=== PATIENT | female | born 1985 | race Caucasian/White ===

== ENCOUNTER 2024-07-12 15:15 | Outpatient (CLI) | payer MEDICAID, SELFPAY ==
[2024-07-12 17:22] LABS: HCG,Quantitative 162 mIU/ml (0-5.42)
[2024-07-13 08:21] LABS: Progesterone 20.3 ng/mL (.)
== END 2024-07-12 23:59 | disposition home or self-care (01) ==
PROVIDERS: Visit Provider Obstetrics & Gynecology
DX: Z32.01 Encounter for pregnancy test, result positive (principal)
CPT/HCPCS: 36415; 84144; 84702

== ENCOUNTER 2024-07-14 16:14 | Outpatient (CLI) | payer MEDICAID, SELFPAY ==
[2024-07-14 17:39] LABS: HCG,Quantitative 499 mIU/ml (0-5.42)
== END 2024-07-14 23:59 | disposition home or self-care (01) ==
LOC: LAB 16:14
PROVIDERS: Visit Provider Obstetrics & Gynecology
DX: Z32.01 Encounter for pregnancy test, result positive (principal)
CPT/HCPCS: 36415; 84702

== ENCOUNTER 2024-08-08 12:19 | Outpatient (CLI) | payer MEDICAID, SELFPAY ==
--- OUTSIDE RECORDS SUMMARY | 2024-08-08 12:21 | XMS_ITS | Clinical Summary ---
Author Organization Healthcare Address [address] [place] [address] Care Team Providers Care Heel Reducer Name Role Phone Pcp, No Primary Care Provider Unavailabl e Allergies Active Allergy Reactions Criticality Noted Date Comments Cephalexin Rash Low 11/05/2022 Ciprofloxacin Hives Medium 01/14/2017 Ketorolac Unknown - Patient states they do not know rxn details Low 01/14/2017 Makes my seizures worse Latex Hives Medium 03/04/2017 Shellfish-Derived Products Anaphylaxis High 02/23/2018 Medications Vit-Fe Fumarate-FA ( VITAMINS PO) Take 1 tablet by mouth 1 (one) time each day. Active Blood Glucose Monitoring Suppl (OneTouch Verio Flex System) w/Device kit USE TO TEST 4 TIMES A DAY 4 Active OneTouch Verio test strip 4 (four) times a day. for testing 4 Active Lancets (OneTouch Delica Plus [id number]) [facility] TO [facility] 4 TIMES A DAY 4 Active promethazine (Phenergan) 12.5 MG tablet Take 1 tablet (12.5 mg) by mouth every 4 (four) hours. Active oxyCODONE (Roxicodone) 5 MG immediate release tablet Take 1 tablet (5 mg) by mouth every 4 (four) hours if needed for severe pain. 12 tablet 4 Active NIFEdipine XL (Adalat CC) 60 MG 24 hr tablet Take 1 tablet (60 mg) by mouth every 12 (twelve) hours. Do not crush, chew, or split. 60 tablet 1 4 Active Vit-Fe Fumarate-FA ( Vitamins) 28-0.8 MG tablet Take 1 tablet by mouth 1 (one) time each day. 30 tablet 3 4 025 Active cyclobenzaprin e (Flexeril) 5 MG tablet Take 1 tablet (5 mg) by mouth 3 (three) times a day if needed for muscle spasms. 30 tablet 4 Active naloxone (Narcan) 4 mg/0.1 mL nasal spray 1. Give 1 spray in nostril for no/slow breathing or cannot wake after opioid use 2. Call 911 3. Repeat in other nostril if symptoms continue 1 each 4 Active acetaminophen (Tylenol) 325 MG tablet Take 2 tablets (650 mg) by mouth every 6 (six) hours. Under [place] law, monthly prescriptions (30 days) can be refilled at 25 days and three-month prescriptions (90 days) at 80 days. Please contact the insurance company with questions if refills are denied. 60 tablet 4 Active ibuprofen 600 MG tabletIndicati ons:Mild to Moderate Pain Take 1 tablet (600 mg) by mouth every 6 (six) hours. 30 tablet 4 Active Blood Pressure Monitoring (Blood Pressure Cuff) misc 1 kit 2 (two) times a day. 1 each 4 Active famotidine (Pepcid) 20 MG tablet Take 1 tablet (20 mg) by mouth 2 (two) times a day. 60 tablet 11 4 025 Active Problems Problem Noted Date Diagnosed Date Chronic hypertension 02/15/2024 10/04/2023 -induced hypertension 11/20/2022 0 11/20/2022 AVNRT (AV janee re-entry tachycardia) 08/15/2019 09/16/2022 Morbid obesity 08/15/2019 09/16/2022 NSTEMI (non-ST elevated myocardial infarction) 0 07/12/2019 09/16/2022 Moderate major depression 05/26/20192022 PID (acute pelvic inflammatory disease) 02/28/19 19 09/16/2022 HTN (hypertension) 08/06/2017 09/16/2022 Migraine 08/06/2017 09/16/2022 Supraventricular tachycardia 08/06/2017 Resolved Problems Problem Noted Date Diagnosed Date Resolved Date Cholecystitis 09/21/2023 10/04/2023 Elevated troponin 07/12/2019 09/16/2022 10/12/2022 Abnormal US 02/01/2019 09/16/20222022 Immunizations Immunization Administration Dates Next Due Influenza, seasonal, injectable, preservative fr ee 10/28/2023 Tdap 12/23/2023,09/07/2022 Social History Tobacco Use Types Packs/Day Years Used Date Smoking Tobacco: Former Cigarettes 0.3 2 2 009 - 2010 Smokeless Tobacco: Never Tobacco Cessation:Counseling Given: Not Answered Alcohol Use Standard Drinks/Week Comments Never 0 (1 standard drink = 0.6 oz pur e alcohol) Humiliation, Afraid, Rape, and Kick questionnair e Answer Date Recorded Within the last year, have y ou been afraid of your partner or ex-partner? No 08/16/2023 Within the last year, have y ou been humiliated or emotionally abused in other ways by your partner or ex-partner? No Within the last year, have y ou been kicked, hit, slapped, or otherwise physically hurt by your partner or ex-partner? No 08/16/2023 Within the last year, have y ou been raped or forced to have any kind of sexual activity by your partner or ex-partner? No 08/16/2023 Social Connection and Isolation Panel Answer Date Recorded In a typical week, how many times do you talk on the phone with family, friends, or neighbors? More than three times a week 08/16/2023 How often do you get togethe r with friends or relatives? Twice a week 08/16/2023 How often do you attend chur ch or church services? More than 4 times per year 08/16/2023 Do you belong to any clubs o r organizations such as jew groups, unions, fraternal or athletic groups, or school groups? Yes 08/16/2023 How often do you attend meet ings of the clubs or organizations you belong to? More than 4 times per year 08/16/2023 Are you , , di vorced, , never , or living with a partner? 08/16/2023 AUDIT-C Answer Date Recorded Q1: How often do you have a drink containing alcohol? Never 08/16/2023 Q2: How many drinks containi ng alcohol do you have on a typical day when you are drinking? Patient does not drink Q3: How often do you have si x or more drinks on one occasion? Never 08/16/2023 Overall Financial Resource Strain (CARDIA) Answe r Date Recorded How hard is it for you to pa y for the very basics like food, housing, medical care, and heating? Somewhat hard 02/17/2024 PHQ-2 Answer Date Recorded Patient Health Questionnaire-2 Score 0 02/03/2024 [facility] [facility] - Occupational Stress Questionnaire Answer Date Recorded Do you feel stress - tense, restless, nervous, or anxious, or unable to sleep at night because your mind is troubled all the time - these days? Not at all 08/16/2023 Exercise Vital Sign Answer Date Recorde d On average, how many days pe r week do you engage in moderate to strenuous exercise (like a brisk walk)? 7 days 08/16/2023 On average, how many minutes do you engage in exercise at this level? 30 min 08/16/2023 Hunger Vital Sign Answer Date Recorded Within the past 12 months, y ou worried that your food would run out before you got the money to buy more. Never true 02/17/20 24 Within the past 12 months, t he food you bought just didn't last and you didn't have money to get more. Never true 02/17/2024 PRAPARE - Transportation Answer Date Re corded In the past 12 months, has l ack of transportation kept you from medical appointments or from getting medications? No 01/23 In the past 12 months, has l ack of transportation kept you from meetings, work, or from getting things needed for daily living? No 02/17/2024 Housing Stability Vital Sign Answer Pipe e Recorded In the last 12 months, was t here a time when you were not able to pay the mortgage or rent on time? No 08/16/2023 In the last 12 months, how many places have you lived? 1 08/16/2023 In the last 12 months, was t here a time when you did not have a steady place to sleep or slept in a skilled nursing (including now)? No 08/16/2023 [place] Depression Scale Answer Date Recorded [place] Depression Scale Total 6 12/07/2022 The thought of harming myself has occurred to me . Never 12/07/2022 Housing Stability Vital Sign Answer Pipe e Recorded In the last 12 months, was t here a time when you were not able to pay the mortgage or rent on time? No 02/24/2024 In the past 12 months, how m any times have you moved where you were living? 2 02/24/2024 At any time in the past 12 m [facility], were you homeless or living in a skilled nursing (including now)? No 02/24/2024 Utilities Answer Date Recorded In the past 12 months has th e electric, gas, oil, or water company threatened to shut off services in your home? No 02/17/2024 PHQ-2A Answer Date Recorded Depression Risk 0 08/06/2023 Education Answer Date Recorded What is the highest level of school you have completed or the highest degree you have received? High school graduate 08/16/2023 Comments No Sex and Gender Information Value Date Recorded Sex Assigned at Female 06/23/2023 4:22 PM EDT Legal Sex Female 8:27 AM EDT Gender Identity Female 06/23/2023 4:22 PM EDT Sexual Orientation Straight 06/23/2023 4: 22 PM EDT Last Filed Vital Signs Vital Sign Reading Time Taken Comments Blood Pressure 134/83 02/18/2024 7:45 AM EST Pulse 99 02/18/2024 7:45 AM EST Temperature 36.7 C (98.1 F) 02/18/2024 7:45 AM EST Respiratory Rate 16 02/17/2024 11:51 PM EST Oxygen Saturation 95% 02/18/2024 7:45 AM EST Inhaled Oxygen Concentration - - Weight 135 kg (298 lb 1 oz) 02/03/2024 9:[address] Height 180.3 cm (5' 11 ) 01/06/2024 11:32 AM EST Body Mass Index 41.57 01/06/2024 11:32 AM EST Plan of Treatment Health Maintenance Due Date Last Done Comments [facility]-/Child/Adol SDOH Screenings 1985 [facility]-Varicella Vaccines (1 of 2 - 13+ 2-dose series) 1998 HPV Vaccines (1 - 3-dose series) 2000 [facility]-Hepatitis A Vaccines (1 of 2 - Risk 2-dose series) 2004 [facility]-Hepatitis B Vaccines (1 of 3 - 19+ 3-dose series) 2004 [facility]-Pneumococcal Vaccine: Pediatrics (0 to 5 Years) and At-Risk Patients (6 to 49 Years) (1 of 2 - PCV) 2004 [facility]-HPV/Cotest 11/23/2015 [id number] Vaccine (1 - 2023- season) 2023 [facility]- SDOH Screenings 02/15/2024 [facility]-Adult SDOH Screenings 02/15/2024 08/16/2023 [facility]-Cervical Cancer Screening 01/08/2025 [facility]-Pap Smear 01/08/2025 01/08/2022 [facility]-Depression Screening 02/02/2025 024, 08/06/2023, 12/07/2022 [facility]-DTaP,Tdap,and Td Vaccines (4 - Td or Tdap) 12/22/2033 12/23/2023, 09/07/2022, 02/17/2019 [facility]-Zoster Vaccines (1 of 2) 11/23/2035 [facility]-HIV Screening Completed 07/23/2023, 09/06/2022 [facility]-Hepatitis C Screening Completed 2023, 07/23/2023, 09/06/2022 [facility]-Influenza Vaccine Completed 10/28/2023, 019 [facility]-Obesity Intervention Completed 024, 01/24/2024, 01/06/2024, Additional history exists [facility]-HIB Vaccines Aged Out No longer e ligible based on patient's age to complete this topic [facility]-IPV Vaccines Aged Out No longer e ligible based on patient's age to complete this topic [facility]-Rotavirus Vaccines Aged Out No lo nger eligible based on patient's age to complete this topic Goals Goal Patient Goal Type Associated Problems Recent Progress Patient-Stated? Author Delayed Delivery Care Plan CPM S22 PP LABOR (OBSTETRICS) No Open Scheduling, Background Procedures Procedure Name Priority Date/Time Associated Diagnosis Comments HEPATITIS C ANTIBODY W/REFLEX TO HCV QUANT PCR Routine 07/23/2023 8:37 AM EDT state, incidental HIV 1/2 ANTIBODY/ANTIGEN SCREEN WITH REFLEX TO HIV I/II DIFFERENTIATION Routine 07/23/2023 8:37 AM EDT state, incidental from Last 3 Months or Most Recently Relevant to Health Maintenance Results * HIV 1 & 2 Antibody/Antigen Screen (07/23/2023 8:37 AM EDT) HIV 1 & 2 Antibody/Antigen Screen Non Reactive Non Reactive 07/23/2023 1:19 PM EDT [facility] Comment:Screening for HIV 1 & 2 antibodies, and P24 antigen is NONREACTIVE. No confirmatory testing is required. Blood Venous blood specimen / Unknown Venipuncture / Unknown 07/23/2023 8:37 AM EDT 07/23/2023 12:39 PM EDT us Flo Rojas MD LAB BLOOD ORDERABLES Final Resu lt Performing Organization Address [facility] Co de Phone Number HEALTHCARE [facility] [address] [place] [address] * (ABNORMAL) Hepatitis C Antibody (07/23/2023 8:37 AM EDT) Hepatitis C Antibody Positive( A) Negative 07/23/2023 2:24 PM EDT [facility] Comment:This specimen is sarah ng sent for confirmation by RT-PCR. Blood Venous blood specimen / Unknown Venipuncture / Unknown 07/23/2023 8:37 AM EDT 07/23/2023 12:38 PM EDT us Flo Rojas MD LAB BLOOD ORDERABLES Final Resu lt Performing Organization Address City/[facility] Co de Phone Number [facility] [address] [place] [address] from Last 3 Months or Most Recently Relevant to Health Maintenance Additional Health Concerns Active Problems Noted Date Diagnosed Date CPM S22 PP LABOR (OBSTETRICS) 08/16/2023 Insurance [facility] MEDICAID Advance Directives * Full Code (Latest Code Status on File) Date Activated Date Inactivated Comments 02/15/2024 3:52 PM 02/18/2024 5:18 PM Question Answer Comments Patient has decision-making capacity? Yes Care Teams Heel Reducer Relationship Specialty Start Date End Date Pcp, No [address] [place] [address] PCP - General Family Medicine 09/21/23
--- NOTE | 2024-08-08 12:30 | US_ITS ---
PROCEDURE: US OB TRANSVAGINAL CLINICAL INDICATION: viability COMPARISON: No exams were available for comparison FINDINGS: Transvaginal sonographic images of the pelvis were obtained. From her last menstrual period she is 8weeks 2days. Two intrauterine gestational sacs are seen. Twin A: An intrauterine gestational sac is present with a pole with a crown-rump length of 0.94cm This correlates to a gestational age of 7weeks 0 days. BONNIE 03/27/2025 heart tones are present with an FHR of 170bpm. Yolk sac is noted. The yolk sac measures 5.9mm. Twin B: An intrauterine gestational sac is present with a pole with a crown-rump length of 0.94cm This correlates to a gestational age of 7weeks 0 days. BONNIE 03/27/2025 heart tones are present with an FHR of 165bpm. Yolk sac is noted. The yolk sac measures 5.3mm. The ovaries are not visualized today. There is no fluid in the cul-de-sac. IMPRESSION: 1. Viable twin with 2 separate gestational sacs. Too early to determine chorionicity. 2. Both embryos measures 7 weeks 0 days and dates should be revised to reflect this. Revised BONNIE will be 03/27/2025. 3. Ovaries are not visualized on today's exam. 4. No fluid in the cul-de-sac. Dictated by: Jason Erickson MD 08/08/2024 15:44 Jason Erickson MD in OV 08/08/2024 15:44
[2024-08-08 13:34] LABS: Basophils % 0.3 % (0.1-2.0); Eosinophils # 0.3 Kmm3 (0.0-0.4); Eosinophils % 2.2 % (0.1-12.0); Hematocrit 38.7 % (37.0-47.0); Hemoglobin 12.7 g/dL (12.2-16.2); Immature Granulocytes # 0.07 10^3uL; Immature Granulocytes % 0.5 %; Lymphocytes % 15.2 % (10-50); Mean Corpuscular HGB Conc 32.8 g/dL (31.8-35.4); Mean Corpuscular Hemoglobin 27.9 pg (27.0-31.2); Mean Corpuscular Volume 85.1 fl (81-99); Mean Platelet Volume 10.9 fl (7.4-10.4); Monocytes # 0.6 K/mm3 (0.1-1.0); Monocytes % 4.4 % (1.7-9.3); Neutrophils % 77.4 % (37.0-80.0); Nucleated Red Blood Cells # 0 10^3/uL; Nucleated Red Blood Cells % 0 %; Platelet Count 294 K/mm3 (142-424); Red Blood Count 4.55 M/mm3 (4.20-5.40); Red Cell Distribution Width 14.6 % (11.5-17.5); Red Cell Distribution Width-SD 44.4 fL
[2024-08-08 14:44] LABS: HIV Combo NEGATIVE (Negative)
[2024-08-08 14:53] LABS: Hepatitis C Ab Qual. W/ RFX REACTIVE (Negative)
[2024-08-09 07:21] LABS: Hepatitis B Surface Antigen Negative (Negative)
[2024-08-09 08:17] LABS: Rubella Antibodies, IgG 1.69 index (Immune >0.99)
[2024-08-09 09:58] LABS: RPR W/RFX Titers Nonreactive (Nonreactive)
== END 2024-08-08 23:59 | disposition home or self-care (01) ==
LOC: RAD 12:19
PROVIDERS: Visit Provider Obstetrics & Gynecology
DX: O30.091 Twin pregnancy, unable to determine number of placenta and number of amniotic sacs, first trimester (principal); Z3A.01 Less than 8 weeks gestation of pregnancy
CPT/HCPCS: 36415; 76817; 85025; 86592; 86762; 86803; 86850; 87340; 87389; 87522

== ENCOUNTER 2024-09-05 11:18 | Outpatient (CLI) | payer MEDICAID, SELFPAY ==
--- NOTE | 2024-09-05 11:00 | US_ITS ---
PROCEDURE: US OB <= 14 WEEKS FETUS CLINICAL INDICATION: check placenta choronicity-heartbeat of fetuses COMPARISON: No exams were available for comparison FINDINGS: Transabdominal and transvaginal sonographic images of the pelvis were obtained. From her last menstrual period she is 11weeks 0 days. An intrauterine gestational sac is present with a pole with a crown-rump length of 4.79 cm This correlates to a gestational age of 12 weeks 0 days. BONNIE 06/19/2024 heart tones are present with an FHR of 179bpm. An intrauterine gestational sac is present with a pole with a crown-rump length of 5.11cm This correlates to a gestational age of 12 weeks 0 days. BONNIE 06/19/2024 heart tones are present with an FHR of 170bpm. The ovaries were not visualized. There is no fluid in the cul-de-sac. IMPRESSION: 1. Viable twin . The placenta appears to be forming anteriorly. 2. There is a positive twin peak sign indicating dichorionic diamniotic twins. 3. Both twins measure 12 weeks 0 days and the BONNIE should be revised. The revised BONNIE will be 06/19/2024 4. No fluid in the cul-de-sac. Dictated by: Jason Erickson MD 09/05/2024 16:37 Jason Erickson MD in OV 09/05/2024 16:37
--- OUTSIDE RECORDS SUMMARY | 2024-09-05 11:20 | XMS_ITS | Clinical Summary ---
Author Organization Healthcare Address [address] [place] [address] Care Team Providers Care Twine Winder Name Role Phone Pcp, No Primary Care [...] testing 4 Active Lancets (OneTouch Delica Plus [id number]) [facility] USE TO [facility] 4 TIMES A DAY [...] time each day. 30 tablet 3 4 02/18/20 25 Active cyclobenzaprin e (Flexeril) 5 MG tablet [...] by mouth every 6 (six) hours. Under [place] law, monthly prescriptions (30 days) can be [...] times a day. 1 each 4 Active Active Problems Problem Noted Date Diagnosed Date [...] week 08/16/2023 How often do you attend [facility] or oriental orthodox services? More than 4 times per year 08/16/2023 Do you belong to any clubs o r organizations such as restorationism groups, unions, fraternal or athletic groups, or [...] Recorded Patient Health Questionnaire-2 Score 0 02/03/2024 [facility] - Occupational Stress Questionnaire Answer Date Recorded [...] place to sleep or slept in a group home (including now)? No 08/16/2023 [place] Depression Scale Answer Date Recorded Adin Depression Scale Total 6 12/07/2022 The thought [...] any time in the past 12 m [facility], were you homeless or living in a group home (including now)? No 02/24/2024 Utilities Answer Date Recorded In the past 12 months has th e [employer], gas, oil, or water company threatened to [...] HPV Vaccines (1 - 3-dose series) 2000 [facility]- SDOH Screenings 11/23/2003 [facility]-Adult SDOH Screenings 11/23/2003 [facility]-Hepatitis A Vaccines (1 of 2 - Risk 2-dose series) 2004 [facility]-Hepatitis B Vaccines (1 of 3 - 19+ 3-dose series) 2004 [facility]-Pneumococcal Vaccine: Pediatrics (0 to 5 Years) and At-Risk Patients (6 to 49 Years) (1 of 2 - PCV) 2004 [facility]-HPV/Cotest 11/23/2015 [id number] Vaccine (1 - season) 2023 [facility]-Influenza Vaccine (#1) 2024 10/28/2023, [facility]-Cervical Cancer Screening 01/08/2025 [facility]-Pap Smear 01/08/2025 01/08/2022 [facility]-Depression Screening 02/02/2025 024, 08/06/2023, 12/07/2022 [facility]-DTaP,Tdap,and Td Vaccines (4 - Td or Tdap) 12/22/2033 12/23/2023, 09/07/2022, 02/17/2019 [facility]-Zoster Vaccines (1 of 2) 11/23/2035 [facility]-HIV Screening Completed 07/23/2023, 09/06/2022 [facility]-Hepatitis C Screening Completed 2023, 07/23/2023, 09/06/2022 [facility]-Obesity Intervention Completed 024, 01/24/2024, 01/06/2024, Additional [...] ORDERABLES Final Resu lt Performing Organization Address [facility] Co de Phone Number HEALTHCARE [facility] [address] [place] [address] * (ABNORMAL) Hepatitis C Antibody (07/23/2023 8:37 AM EDT) Hepatitis C Antibody Positive( A) Negative 07/23/2023 2:24 PM EDT [facility] Comment:This specimen is sarah ng sent for confirmation by RT-PCR. Blood Venous blood specimen / Unknown Venipuncture / Unknown 07/23/2023 8:37 AM EDT 07/23/2023 12:38 PM EDT us Flo Rojas MD LAB BLOOD ORDERABLES Final Resu lt Performing Organization Address City/[facility] Co de Phone Number HEALTHCARE [facility] [address] [place] [address] from Last 3 Months or Most Recently Relevant to Health Maintenance Additional Health Concerns Active Problems Noted Date Diagnosed Date CPM S22 PP LABOR (OBSTETRICS) 08/16/2023 Insurance Advance Directives * Full Code (Latest Code Status on File) Date Activated Date Inactivated Comments 02/15/2024 3:52 PM 02/18/2024 5:18 PM Question Answer Comments Patient has decision-making capacity? Yes Care Teams Twine Winder Relationship Specialty Start Date End Date Pcp, No [address] [place] [address] PCP - General Family Medicine 09/21/23
== END 2024-09-05 23:59 | disposition home or self-care (01) ==
LOC: RAD 11:18
PROVIDERS: Visit Provider Obstetrics & Gynecology
DX: O30.041 Twin pregnancy, dichorionic/diamniotic, first trimester (principal); O09.521 Supervision of elderly multigravida, first trimester; O99.211 Obesity complicating pregnancy, first trimester; E66.9 Obesity, unspecified; O10.911 Unspecified pre-existing hypertension complicating pregnancy, first trimester; O09.291 Supervision of pregnancy with other poor reproductive or obstetric history, first trimester; Z3A.12 12 weeks gestation of pregnancy
CPT/HCPCS: 76801

== ENCOUNTER 2024-11-14 15:07 | Outpatient (CLI) | payer MEDICAID, SELFPAY ==
--- OUTSIDE RECORDS SUMMARY | 2024-10-31 12:46 | XMS_ITS | Encounter Summary ---
Author Organization [facility] Address [address] [place] [address] Care Team Providers Care Apprentice Stylist Name Role Phone Provider, No Known Primary Care Provider Unavail able Reason for Referral * Diagnostic Imaging (Routine) - Closed Specialty Diagnoses / Procedures Referred By Chasidy t Referred To Contact Radiology Diagnoses Antepartum multigravida of advanced maternal age Dichorionic diamniotic twin , antepartum Family history of congenital anomaly , unspecified gestational age Chronic hypertension during , antepartum Procedures [facility] [place] Wayne Daniels MD [address] [place] [address] Phone: tel: fax: Referral ID Status Reason Start Date Expiration Date Visits Re quested Visits Authorized Closed 09/12/2024 12/12/2025 1 1 Reason for Visit * Diagnostic Imaging (Routine) - Closed Specialty Diagnoses / Procedures Referred By Contac t Referred To Contact Radiology Diagnoses Antepartum multigravida of advanced maternal age Dichorionic diamniotic twin , antepartum Family history of congenital anomaly , unspecified gestational age Chronic hypertension during , antepartum Procedures [facility] [place] Wayne Daniels MD [address] [place] [id number] Phone: tel: fax: Referral ID Status Reason Start Date Expiration Date Visits Re quested Visits Authorized Closed 09/12/2024 12/12/2025 1 1 Encounter Details Date Type Department Care Team (Late st Contact Info) Description 10/31/2024 12:46 PM EDT - 10/31/2024 11:59 PM EDT Hospital Encounter [facility] [address] [place] [id number] Wayne Daniels [address] [place], [place] [id number] Antepartum multigravida of advanced maternal age; Dichorionic diamniotic twin , antepartum; Family history of congenital anomaly; , unspecified gestational age; Chronic hypertension during , antepartum Discharge Disposition: Home or Self Care Social History Tobacco Use Types Packs/Day Years Used Date Smoking Tobacco: Former Cigarettes Smokeless Tobacco: Never Alcohol Use Standard Drinks/Week Comments Not Currently 0 (1 standard drink = 0.6 oz pur e alcohol) Estimated Date of Delivery Comme nts Yes 03/27/2025 Date entered adelina or to episode creation Sex and Gender Information Value Date Recorded Sex Assigned at Not on file Legal Sex Female 1:35 PM EDT Gender Identity Not on file Sexual Orientation Not on file documented as of this encounter Medications at Time of Discharge albuterol sulfate HFA 108 (90 Base) MCG/ACT inhaler Inhale 1-2 puffs Every 6 (Six) Hours As Needed. aspirin 81 MG EC tablet Take 1 tablet by mouth Daily. famotidine (PEPCID) 20 MG tablet Take 1 tablet by mouth Daily Before Supper. 09/05/2024 6 hydrOXYzine (ATARAX) 25 MG tablet Take 1 tablet by mouth every night at bedtime. 08/31/2024 NIFEdipine XL (PROCARDIA XL) 30 MG 24 hr tablet Take 1 tablet by mouth Daily. 09/05/2024 Vit-Fe Fumarate-FA ( vitamin 28-0.8) 28-0.8 MG tablet tablet Take 1 tablet by mouth Daily. 02/18/2024 5 promethazine (PHENERGAN) 12.5 MG tablet Take 1 tablet by mouth Every 6 (Six) Hours As Needed. SUMAtriptan (IMITREX) 25 MG tablet Take 1 tablet by mouth 1 (One) Time. Please see attached for detailed directions 09/07/2024 documented as of this encounter Plan of Treatment Upcoming Encounters Date Type Department Care Team (Late st Contact Info) Description 11/28/2024 2:15 PM EDT Office Visit [facility] [address] [facility] [address] [place] [address] 11/28/2024 2:15 PM EDT Appointment [facility] [address] [place] [address] documented as of this encounter Procedures Procedure Name Priority Date/Time Associated Diagnosis Comments [facility] Routine 10/31/2024 1:57 PM EDT Antepartum multigravida of advanced maternal age Dichorionic diamniotic twin , antepartum Family history of congenital anomaly , unspecified gestational age Chronic hypertension during , antepartum documented in this encounter Results * [facility] (10/31/2024 1:57 PM EDT) Anatomical Region Laterality Modality Ultrasound 10/31/2024 1:14 PM EDT Narrative 10/31/2024 2:00 PM EDT PAT NAME: ROXANA NIETO MED REC#: [id number] DA: [id number] PAT GEND: F PAT TYPE: O EXAM AWILDA: [id number] REF PHYS KAYLI WHITE Comparison Studies The findings of this study are compared to the prior ultrasound study dated 09/12/24 Patient Status Outpatient Indication ======== Di/Di twin . AMA. MO BMI 46. CHTN. Previous c/s x 3. H/O preeclampsia. H/O abruption. 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 Maternal Assessment Height 175 cm Height (ft) 5 ft Height (in) 9 in Weight 141 kg Weight (lb) 311 lb BMI 45.93 kg/m Method ======= Transabdominal ultrasound examination. View: Limited by patient body habitus. Suboptimal view: limited by early gestational age ========= Twin . Dichorionic-diamniotic. Number of fetuses: 2 Dating ====== Method of dating: based on stated BONNIE GA by prior assessment 19 w + 0 d BONNIE by prior assessment: 03/27/2025 Ultrasound examination on: 10/31/2024 GA by U/S based upon: AC, BPD, Femur, HC GA by U/S 19 w + 3 d BONNIE by U/S: 03/24/2025 GA by U/S based upon (Fetus 2): AC, BPD, Femur, HC GA by U/S (Fetus 2) 19 w + 3 d BONNIE by U/S (Fetus 2): 03/24/2025 Previous dating: based on stated BONNIE, selected on 09/12/2024 Agreed BONNIE of previous datin03/27/2025 Assigned: based on stated BONNIE, selected on 10/31/2024 Assigned GA 19 w + 0 d Assigned BONNIE: 03/27/2025 length 280 d Biometry Standard BPD 43.5 mm 19w 1d 58% Hadlock OFD 59.1 mm 20w 4d 92% Nyla HC 166.6 mm 19w 2d 60% Hadlock Cerebellum tr 21.2 mm 20w 1d 88% Hill Nuchal fold 4.9 mm AC 136.9 mm 19w 1d 50% Hadlock Femur 32.4 mm 20w 1d 81% Hadlock Humerus 30.4 mm 20w 0d 84% Nyla HC / AC 1.22 79% Hadlock EFW 299 g 19w 3d 76% Hadlock EFW discordance 3.5 % EFW (lb) 0 lb EFW (oz) 11 oz EFW by: Hadlock (JVI-RT-RA-FL) Extended Tibia 26.9 mm 19w 5d 78% Nyla Fibula 28.7 mm 20w 2d 74% Nyla Foot 29.7 mm 52% Chitty Radius 24.9 mm 19w 2d 53% Nyla Ulna 27.7 mm 20w 1d 76% Nyla Cav. septi pel. tr 4.6 mm Head Of Loss Prevention 8.3 mm CM 4.8 mm 53% Nicolaides Nasal bone 6.6 mm Head / Face / Neck Cephalic index 0.74 6% Nicolaides Extremities / Bony Struc FL / BPD 0.74 96% Hadlock FL / HC 0.19 83% Hadlock FL / AC 0.24 97% Hadlock Other Structures FHR 151 bpm Biometry Standard BPD 43.2 mm 19w 0d 54% Hadlock OFD 59.2 mm 20w 4d 93% Nyla HC 165.5 mm 19w 2d 55% Hadlock Cerebellum tr 21.6 mm 20w 3d 95% Hill Nuchal fold 5.4 mm AC 139.3 mm 19w 2d 57% Hadlock Femur 33.1 mm 20w 2d 87% Hadlock Humerus 30.0 mm 19w 6d 79% Nyla HC / AC 1.19 61% Hadlock EFW 310 g 19w 4d 85% Hadlock EFW discordance 3.5 % EFW (lb) 0 lb EFW (oz) 11 oz EFW by: Hadlock (JIS-KD-UH-FL) Extended Tibia 29.3 mm 20w 5d 96% Nyla Fibula 31.3 mm 21w 1d 89% Nyla Foot 34.1 mm 97% Chitty Radius 27.7 mm 20w 2d 72% Nyla Ulna 30.8 mm 21w 4d 98% Nyla Cav. septi pel. tr 3.7 mm Head Of Loss Prevention 9.0 mm CM 4.8 mm 53% Nicolaides Head / Face / Neck Cephalic index 0.73 4% Nicolaides Extremities / Bony Struc FL / BPD 0.77 99% Hadlock FL / HC 0.20 98% Hadlock FL / AC 0.24 97% Hadlock Other Structures FHR 137 bpm General Evaluation Cardiac activity present. FHR 151 bpm. movements present. Presentation breech, maternal left. Placenta Placental site: anterior. Umbilical cord Cord vessels: 3 vessel cord. Insertion site: placental insertion: normal. Amniotic fluid Amount of AF: normal. MVP 4.5 cm. General Evaluation Cardiac activity present. FHR 137 bpm. movements present. Presentation Transverse superior RT. Placenta Placental site: anterior. Umbilical cord Cord vessels: undetermined. Insertion site: placental insertion: normal. Amniotic fluid Amount of AF: normal. MVP 4.0 cm. Anatomy Cranium: Appears normal Midline falx: Appears normal Cavum septi pellucidi: Appears normal Cerebellum: Appears normal Cisterna magna: Appears normal Head / Neck Rt lateral ventricle: Appears normal Lt lateral ventricle: Appears normal Rt choroid plexus: suboptimal Lt choroid plexus: suboptimal Vermis: Appears normal Neck: Appears normal Nuchal fold: Appears normal Lips: Appear normal Profile: Appears normal Nose: Appears normal Face Nose: Nasal bone present Palate: visualized Orbits: Appears normal Lens: Normal 4-chamber view: Appears normal RVOT view: not examined LVOT view: suboptimal Heart / Thorax Aortic arch view: not examined Ductal arch view: suboptimal SVC: suboptimal IVC: normal 3-vessel view: visualized 7-hejyro-fzcgjeq view: not examined Diaphragm: Appears normal Diaphragm: Intact Cord insertion: Appears normal Stomach: Appears normal Bladder: Appears normal Abdomen Rt kidney: normal Lt kidney: normal Cervical spine: Appears normal Thoracic spine: Appears normal Lumbar spine: suboptimal Sacral spine: suboptimal Arms: Appears normal Legs: Appears normal Rt upper arm: Appears normal Rt forearm: Appears normal Rt hand: Appears normal Rt fingers: suboptimal Lt upper arm: Appears normal Lt forearm: Appears normal Lt hand: Appears normal Lt fingers: suboptimal Rt upper leg: Appears normal Rt lower leg: Appears normal Rt foot: Appears normal Lt upper leg: Appears normal Lt lower leg: Appears normal Lt foot: suboptimal Gender: male Wants to know gender: yes Anatomy Cranium: Appears normal Midline falx: Appears normal Cavum septi pellucidi: Appears normal Cerebellum: Appears normal Cisterna magna: Appears normal Head / Neck Rt lateral ventricle: Appears normal Lt lateral ventricle: Appears normal Rt choroid plexus: Appears normal Lt choroid plexus: Appears normal Vermis: Appears normal Neck: Appears normal Nuchal fold: Appears normal Lips: not examined Profile: not examined Nose: not examined Face Palate: not examined Maxilla: not examined Mandible: not examined Orbits: not examined Lens: not examined 4-chamber view: not examined RVOT view: not examined LVOT view: not examined Heart / Thorax Aortic arch view: not examined Ductal arch view: not examined SVC: not examined IVC: not examined 3-vessel view: not examined 2-gxsnvn-jqxpfuc view: not examined Diaphragm: Appears normal Diaphragm: Intact Cord insertion: Appears normal Stomach: Appears normal Bladder: Appears normal Abdomen Rt kidney: normal Lt kidney: normal Cervical spine: Appears normal Thoracic spine: Appears normal Lumbar spine: Appears normal Sacral spine: Appears normal Arms: Appears normal Legs: Appears normal Rt upper arm: Appears normal Rt forearm: Appears normal Rt hand: Appears normal Rt fingers: suboptimal Lt upper arm: Appears normal Lt forearm: Appears normal Lt hand: Appears normal Lt fingers: suboptimal Rt upper leg: Appears normal Rt lower leg: Appears normal Rt foot: Appears normal Lt upper leg: Appears normal Lt lower leg: Appears normal Lt foot: not examined Gender: male Wants to know gender: yes Maternal Structures Uterus / Cervix Cervix: Visualized Approach: Transabdominal Cervical length 39.9 mm Ovaries / Tubes / Adnexa Rt ovary: Not visualized Lt ovary: Not visualized Consultation / Office Visit Office note to follow Impression Dichorionic-diamniotic twins in breech, maternal left-Transverse superior RT presentation Adequate growth of both twins Intertwin growth is concordant (difference 3.5 %) Amniotic fluid is concordant (MVP A 4.5 cm, B 4 cm) Normal appearing anatomic survey of each twin though limited for both twins No placenta previa Normal cervical length Recommendation Follow up in 4 weeks. Coding ======= Description: 08279-33 Detailed Ultrasound Description: 63573-18 Detailed Ultrasound additional fetus Giving Officer: RT Geoff Hines , [facility] Physician: David Taylor MD, FACOG Electronically signed by: David Taylor MD, FACOG at: 14:00 Procedure Note David Taylor MD - 10/31/2024 PAT NAME: ROXANA NIETO MED REC#: [id number] DA: 1985 PAT GEND: F PAT TYPE: O EXAM AWILAD: [id number] REF PHYS KAYLI WHITE Comparison Studies The findings of this study are compared to the prior ultrasound studydated 09/12/24 Patient Status Outpatient Indication ======== Di/Di twin . AMA. MO BMI 46. CHTN. Previous c/s x 3. H/Opreeclampsia. H/O abruption. 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 Maternal Assessment Xgcehy466 cm Height (ft)5 ft Height (in)9 in Dphfjm563 kg Weight (lb)311 lb BMI45.93 kg/m Method ======= Transabdominal ultrasound examination. View: Limited by patient bodyhabitus. Suboptimal view: limited by early gestational age ========= Twin . Dichorionic-diamniotic. Number of fetuses: 2 Dating ====== Method of dating:based on stated BONNIE GA by prior [id number] w + 0 d BONNIE by prior assessment:03/27/2025 Ultrasound examination on:10/31/2024 GA by U/S based upon:AC, BPD, Femur, HC GA by U/S19 w + 3 d BONNIE by U/S:03/24/2025 GA by U/S based upon (Fetus 2):AC, BPD, Femur, HC GA by U/S (Fetus 2)19 w + 3 d BONNIE by U/S (Fetus 2):03/24/2025 Previous dating:based on stated BONNIE, selected on 09/12/2024 Agreed BONNIE of previous datin03/27/2025 Assigned:based on stated BONNIE, selected on 10/31/2024 Assigned GA19 w + 0 d Assigned BONNIE:03/27/2025 [id number] d Biometry Standard BPD43.5 mm 19w 1d 58% Hadlock OFD59.1 mm 20w 4d 92% Nyla HC166.6 mm 19w 2d 60% Hadlock Cerebellum tr21.2 mm 20w 1d 88% Hill Nuchal fold4.9 mm AC136.9 mm 19w 1d 50% Hadlock Femur32.4 mm 20w 1d 81% Hadlock Eahajfz60.4 mm 20w 0d 84% Nyla HC / AC1.22 79% Hadlock LOH269 g 19w 3d 76% Hadlock EFW discordance3.5 % EFW (lb)0 lb EFW (oz)11 oz EFW by:Hadlock (HPV-WJ-QS-FL) Extended Tibia26.9 mm 19w 5d 78% Nyla Rxandy34.7 mm 20w 2d 74% Nyla Foot29.7 mm 52% Chitty Cxjepg98.9 mm 19w 2d 53% Nyla Ulna27.7 mm 20w 1d 76% Nyla Cav. septi pel. tr4.6 mm Vp8.3 mm CM4.8 mm 53% Nicolaides Nasal bone6.6 mm Head / Face / Neck Cephalic index0.74 6% Nicolaides Extremities / Bony Struc FL / BPD0.74 96% Hadlock FL / HC0.19 83% Hadlock FL / AC0.24 97% Hadlock Other Structures DUB507 bpm Biometry Standard BPD43.2 mm 19w 0d 54% Hadlock OFD59.2 mm 20w 4d 93% Nyla HC165.5 mm 19w 2d 55% Hadlock Cerebellum tr21.6 mm 20w 3d 95% Hill Nuchal fold5.4 mm AC139.3 mm 19w 2d 57% Hadlock Femur33.1 mm 20w 2d 87% Hadlock Rhtdeqr91.0 mm 19w 6d 79% Nyla HC / AC1.19 61% Hadlock LSN861 g 19w 4d 85% Hadlock EFW discordance3.5 % EFW (lb)0 lb EFW (oz)11 oz EFW by:Hadlock (EWZ-SD-PZ-FL) Extended Tibia29.3 mm 20w 5d 96% Nyla Ertmnj86.3 mm 21w 1d 89% Nyla Foot34.1 mm 97% Chitty Aiwyru59.7 mm 20w 2d 72% Nyla Ulna30.8 mm 21w 4d 98% Nyla Cav. septi pel. tr3.7 mm Vp9.0 mm CM4.8 mm 53% Nicolaides Head / Face / Neck Cephalic index0.73 4% Nicolaides Extremities / Bony Struc FL / BPD0.77 99% Hadlock FL / HC0.20 98% Hadlock FL / AC0.24 97% Hadlock Other Structures XBL580 bpm General Evaluation Cardiac activity present. FHR 151 bpm. movements present. Presentation breech, maternal left. Placenta Placental site: anterior. Umbilical cord Cord vessels: 3 vessel cord. Insertion site: placentalinsertion: normal. Amniotic fluid Amount of AF: normal. MVP 4.5 cm. General Evaluation Cardiac activity present. FHR 137 bpm. movements present. Presentation Transverse superior RT. Placenta Placental site: anterior. Umbilical cord Cord vessels: undetermined. Insertion site: placentalinsertion: normal. Amniotic fluid Amount of AF: normal. MVP 4.0 cm. Anatomy Cranium:Appears normal Midline falx:Appears normal Cavum septi pellucidi:Appears normal Cerebellum:Appears normal Cisterna magna:Appears normal Head / Neck Rt lateral ventricle:Appears normal Lt lateral ventricle:Appears normal Rt choroid plexus:suboptimal Lt choroid plexus:suboptimal Vermis:Appears normal Neck:Appears normal Nuchal fold:Appears normal Lips:Appear normal Profile:Appears normal Nose:Appears normal Face Nose:Nasal bone present Palate:visualized Orbits:Appears normal Lens:Normal 4-chamber view:Appears normal RVOT view:not examined LVOT view:suboptimal Heart / Thorax Aortic arch view:not examined Ductal arch view:suboptimal SVC:suboptimal IVC:normal 3-vessel view:visualized 1-jogzfr-moqdhjv view:not examined Diaphragm:Appears normal Diaphragm:Intact Cord insertion:Appears normal Stomach:Appears normal Bladder:Appears normal Abdomen Rt kidney:normal Lt kidney:normal Cervical spine:Appears normal Thoracic spine:Appears normal Lumbar spine:suboptimal Sacral spine:suboptimal Arms:Appears normal Legs:Appears normal Rt upper arm:Appears normal Rt forearm:Appears normal Rt hand:Appears normal Rt fingers:suboptimal Lt upper arm:Appears normal Lt forearm:Appears normal Lt hand:Appears normal Lt fingers:suboptimal Rt upper leg:Appears normal Rt lower leg:Appears normal Rt foot:Appears normal Lt upper leg:Appears normal Lt lower leg:Appears normal Lt foot:suboptimal Gender:male Wants to know gender:yes Anatomy Cranium:Appears normal Midline falx:Appears normal Cavum septi pellucidi:Appears normal Cerebellum:Appears normal Cisterna magna:Appears normal Head / Neck Rt lateral ventricle:Appears normal Lt lateral ventricle:Appears normal Rt choroid plexus:Appears normal Lt choroid plexus:Appears normal Vermis:Appears normal Neck:Appears normal Nuchal fold:Appears normal Lips:not examined Profile:not examined Nose:not examined Face Palate:not examined Maxilla:not examined Mandible:not examined Orbits:not examined Lens:not examined 4-chamber view:not examined RVOT view:not examined LVOT view:not examined Heart / Thorax Aortic arch view:not examined Ductal arch view:not examined SVC:not examined IVC:not examined 3-vessel view:not examined 7-pbyllc-imoswuz view:not examined Diaphragm:Appears normal Diaphragm:Intact Cord insertion:Appears normal Stomach:Appears normal Bladder:Appears normal Abdomen Rt kidney:normal Lt kidney:normal Cervical spine:Appears normal Thoracic spine:Appears normal Lumbar spine:Appears normal Sacral spine:Appears normal Arms:Appears normal Legs:Appears normal Rt upper arm:Appears normal Rt forearm:Appears normal Rt hand:Appears normal Rt fingers:suboptimal Lt upper arm:Appears normal Lt forearm:Appears normal Lt hand:Appears normal Lt fingers:suboptimal Rt upper leg:Appears normal Rt lower leg:Appears normal Rt foot:Appears normal Lt upper leg:Appears normal Lt lower leg:Appears normal Lt foot:not examined Gender:male Wants to know gender:yes Maternal Structures Uterus / Cervix Cervix:Visualized Approach:Transabdominal Cervical .9 mm Ovaries / Tubes / Adnexa Rt ovary:Not visualized Lt ovary:Not visualized Consultation / Office Visit Office note to follow Impression Dichorionic-diamniotic twins in breech, maternal left-Transverse superiorRT presentation Adequate growth of both twins Intertwin growth is concordant (difference 3.5 %) Amniotic fluid is concordant (MVP A 4.5 cm, B 4 cm) Normal appearing anatomic survey of each twin though limited forboth twins No placenta previa Normal cervical length Recommendation Follow up in 4 weeks. Coding ======= Description:72095-35 Detailed Ultrasound Description:99848-89 Detailed Ultrasound additional fetus Giving Officer: RT Geoff Hines , [facility] Physician: David Taylor MD, FACOG Electronically signed by: David Taylor MD, FACOG at: 14:00 us Wayne Daniels MD IMG US ORDERABLES Final Re sult documented in this encounter Visit Diagnoses Diagnosis Antepartum multigravida of advanced maternal age Dichorionic diamniotic twin , antepartum Family history of congenital anomaly Family history of congenital anomalies , unspecified gestational age Chronic hypertension during , antepartum documented in this encounter Care Teams Apprentice Stylist Relationship Specialty Start Date End Date Provider, [place] [address] PCP - General 08/10/24 documented as of this encounter
--- OUTSIDE RECORDS SUMMARY | 2024-10-31 13:15 | XMS_ITS | Encounter Summary ---
Author Organization [facility] Address [address] [place] [address] Care Team Providers Care Offset Press Operator Apprentice Name Role Phone Provider, No Known Primary Care Provider Unavail able Reason for Referral * Diagnostic Imaging (Routine) - Authorized Specialty Diagnoses / Procedures Referred By Chasidy t Referred To Contact Radiology Diagnoses Chronic hypertension during , antepartum Dichorionic diamniotic twin , antepartum Procedures [facility] David Taylor MD [address] [place] [address] Phone: tel: fax: [facility] [address] [place] [address] Phone: tel: Referral ID Status Reason Start Date Expiration Date V isits Requested Visits Authorized [id number] Authorized 10/31/2024 01/30/2026 4 4 Reason for Visit * Reason Comments Di/Di twins, mo, hx C/S, AMA, CHTN, prev child cronosynotos Encounter Details Date Type Department Care Team (Late st Contact Info) Description 10/31/2024 1:15 PM EDT Office Visit [facility] [address] [facility] [address] [place] [address] David Taylor MD [address] [facility] [address] [place] [id number] Chronic hypertension during , antepartum (Primary Dx); Dichorionic diamniotic twin , antepartum Social History Tobacco Use Types Packs/Day Years [...] on file documented as of this encounter Last Filed Vital Signs Vital Sign Reading Time Taken Comments Blood Pressure 143/70 10/31/2024 1:06 PM EDT Pulse - - Temperature - - Respiratory Rate - - Oxygen Saturation - - Inhaled Oxygen Concentration - - Weight 141 kg (311 lb) 10/31/2024 1:06 PM EDT Height - - Body Mass Index 48.71 09/12/2024 12:56 PM EDT documented in this encounter Progress Notes * David Taylor MD - 10/31/2024 1:22 PM EDTAssociated Problem(s): Dichorionic diamniotic twin , antepartum Patient is for anatomic survey secondary to di/di twins. Today's ultrasound shows normal growth andlimited but normal-appearing anatomy. * David Taylor MD - 10/31/2024 1:22 PM EDTAssociated Problem(s): Chronic hypertension during , antepartum Patient presents for follow-up ultrasound secondary to chronic hypertension and di/di twins. Today's blood pressure is 143/70. Patient currently on Procardia 30 mg daily. If continued elevation [id number] would recommend increasing blood pressure medication. * Brigitte Shaw RN - 10/31/2024 1:15 PM EDT Patient denies bleeding, leaking fluid or cramping NIPT insufficient DNA Patients next follow up with Dr. Cedeno is 11/14/24 * David Taylor MD - 10/31/2024 1:15 PM EDT Maternal/ Medicine Consult Note Date: 10/31/2024 Name: Roxana Fried : 1985 Referring Provider: Natalie Cedeno DO Chief Complaint Di/Di twins, mo, hx C/S, AMA, CHTN, prev child cronosynotos Subjective History of Present Illness: Roxana Fried is a 38 y.o. 19w0d who presents today for chronic hypertension and di/di twins BONNIE: Estimated Date of Delivery: 03/27/25 ROS: Otherwise Noted in HPI Current Outpatient Medications: albuterol sulfate HFA 108 (90 Base) MCG/ACT inhaler, Inhale 1-2 puffs Every 6 (Six) Hours As Needed., Disp: , Rfl: aspirin 81 MG EC tablet, Take 1 tablet by mouth Daily., Disp: , Rfl: famotidine (PEPCID) 20 MG tablet, Take 1 tablet by mouth Daily Before Supper., Disp: , Rfl: hydrOXYzine (ATARAX) 25 MG tablet, Take 1 tablet by mouth every night at bedtime., Disp: , Rfl: NIFEdipine XL (PROCARDIA XL) 30 MG 24 hr tablet, Take 1 tablet by mouth Daily., Disp: , Rfl: Vit-Fe Fumarate-FA ( vitamin 28-0.8) 28-0.8 MG tablet tablet, Take 1 tablet by mouth Daily., Disp: , Rfl: promethazine (PHENERGAN) 12.5 MG tablet, Take 1 tablet by mouth Every 6 (Six) Hours As Needed., Disp: , Rfl: SUMAtriptan (IMITREX) 25 MG tablet, Take 1 tablet by mouth 1 (One) Time. Please see attached for detailed directions, Disp: , Rfl: Objective Vital Signs BP 143/70 Wt (!) 141 kg (311 lb) LMP 06/11/2024 Estimated body mass index is 48.71 kg/m?? as calculated from the following: Height as of 09/12/24: 170.2 cm (67 ). Weight as of this encounter: 141 kg (311 lb). Ultrasound Impression: See Viewpoint Assessment and Plan Roxana Fried is a 38 y.o. 19w0d who presents today for chronic hypertension and di/di twins Diagnoses and all orders for this visit: 1. Chronic hypertension during , antepartum (Primary) Assessment & Plan: Patient presents for follow-up ultrasound secondary to chronic hypertension and di/di twins. Today's blood pressure is 143/70. Patient currently on Procardia 30 mg daily. If continued elevation [id number] would recommend increasing blood pressure medication. Orders: - [facility]; Standing 2. Dichorionic diamniotic twin , antepartum Assessment & Plan: Patient is for anatomic survey secondary to di/di twins. Today's ultrasound shows normal growth andlimited but normal-appearing anatomy. Orders: - [facility]; Standing Follow Up 4 weeks I spent 10 minutes caring for the patient on the day of service. This included: obtaining or reviewing a separately obtained medical history, reviewing patient records, performing a medically appropriate exam and/or evaluation, counseling or educating the patient/family/caregiver, ordering medications, labs, and/or procedures and documenting such in the medical record. This does not include time spent on review and interpretation of other tests such as ultrasound or the performance of other procedures such as amniocentesis or CVS. David Taylor MD, FACOG Maternal Medicine, [facility] [place] documented in this encounter Plan of Treatment Upcoming Encounters Date Type Department Care Team (Late st Contact Info) Description 11/28/2024 2:15 PM EDT Office Visit [facility] [address] [place] [phone] 11/28/2024 2:15 PM EDT Appointment [facility] [address] [place] [phone] Scheduled Orders Name Type Priority Associated Diagnoses Orde r Schedule [facility] Imaging Routine Chronic hypertension during , antepartum Dichorionic diamniotic twin , antepartum Every 4 Weeks for 4 Occurrences starting 10/31/2024 until 10/31/2025 documented as of this encounter Visit Diagnoses Diagnosis Chronic hypertension during , antepartum- Primary Dichorionic diamniotic twin , antepartum documented in this encounter Care Teams Offset Press Operator Apprentice Relationship Specialty Start Date End Date Provider, [place] [address] PCP - General 08/10/24 documented as of this encounter
--- OUTSIDE RECORDS SUMMARY | 2024-11-14 15:10 | XMS_ITS | Clinical Summary ---
Author Organization Healthcare Address [address] [place] [address] Care Team Providers Care Film Technician Name Role Phone Pcp, No Primary Care [...] testing 4 Active Lancets (OneTouch Delica Plus [id number]) [facility] TO [facility] 4 TIMES A [...] by mouth every 6 (six) hours. 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 09/16/2022 Morbid obesity 08/15/2019 09/16/2022 Moderate major depression 05/26/20192022 PID (acute pelvic inflammatory disease) 02/28/19 19 09/16/2022 HTN (hypertension) 08/06/2017 09/16/2022 Migraine 08/06/2017 09/16/2022 Supraventricular tachycardia 08/06/2017 Resolved Problems Problem Noted Date Diagnosed Date Resolved Date 10/04/2023 11/12/2024 Cholecystitis 09/21/2023 10/04/2023 Elevated troponin 07/12/2019 09/16/2022 10/12/2022 NSTEMI (non-ST elevated myoc ardial infarction) 07/12/2019 09/16/2022 11/12/2024 Abnormal US 02/01/2019 09/16/20222022 Encounters Date Type Department Care Team Description 09/05/2024 Refill Obstetrics & Gynecology [address] [place] [address] Flo Rojas MD from Last 3 Months Immunizations Immunization Administration Dates Next Due Influenza, [...] week 08/16/2023 How often do you attend [facility] or confucianist services? More than 4 times per year 08/16/2023 Do you belong to any clubs o r organizations such as muslim groups, unions, fraternal or athletic groups, or [...] Recorded Patient Health Questionnaire-2 Score 0 02/03/2024 [facility]ational Stress Questionnaire Answer Date [...] place to sleep or slept in a fci (including now)? No 08/16/2023 [place] Depression Scale Answer Date Recorded [place] Depression Scale Total 6 12/07/2022 The thought [...] any time in the past 12 m [facility] [place], were you homeless or living in a fci (including now)? No 02/24/2024 Utilities Answer Date Recorded In the past 12 months has [facility] cVidya, gas, oil, or water [employer] threatened to shut off services in your home? No 02/17/2024 PHQ-2A Answer Date Recorded Depression Risk 0 08/06/2023 Education Answer Date Recorded What is the highest level of school you have completed or the highest degree you have received? High school graduate 08/16/2023 Comments Unknown Sex and Gender Information Value Date Recorded [...] Health Maintenance Due Date Last Done Comments [facility]-Infant/Child/Adol SDOH Screenings 1985 [facility]-Varicella Vaccines (1 of 2 - 13+ 2-dose series) 1998 [facility]- SDOH Screenings 11/23/2003 [facility]-Adult SDOH Screenings 11/23/2003 [facility]-Hepatitis B Vaccines (1 of 3 - 19+ 3-dose series) 2004 [facility]-Pneumococcal Vaccine: Pediatrics (0 to 5 Years) and At-Risk Patients (6 to 49 Years) (1 of 2 - PCV) 2004 HPV Vaccines (1 - 3-dose SCDM series) 2012 [facility]-HPV/Cotest 11/23/2015 [id number] Vaccine ( - season) 2024 [facility]-Influenza Vaccine (#1) 2024 10/28/2023, [facility]-Cervical Cancer [...] on patient's age to complete this topic [facility]-Hepatitis A Vaccines Aged Out No longer eligible based on patient's age to complete [...] Reactive Non Reactive 07/23/2023 1:19 PM EDT [facility] Comment:Screening for HIV 1 & 2 antibodies, and P24 antigen is NONREACTIVE. No confirmatory testing is required. Blood Venous blood specimen / Unknown Venipuncture / Unknown 07/23/2023 8:37 AM EDT 07/23/2023 12:39 PM EDT Result Hoda Rojas MD LAB BLOOD ORDERABLES Final Resu lt Performing Organization Address City/[facility]/ZIP Co de Phone Number [facility] [address] [place] [address] * (ABNORMAL) Hepatitis C Antibody (07/23/2023 8:37 AM EDT) Hepatitis C Antibody Positive( A) Negative 07/23/2023 2:24 PM EDT [facility] Comment:This specimen is sarah ng sent for confirmation by RT-PCR. Blood Venous blood specimen / Unknown Venipuncture / Unknown 07/23/2023 8:37 AM EDT 07/23/2023 12:38 PM EDT us Flo Rojas MD LAB BLOOD ORDERABLES Final Resu lt [facility] [address] [place] [address] from Last 3 Months or Most Recently Relevant to Health Maintenance Additional Health Concerns Active Problems Noted Date Diagnosed Date CPM S22 PP [facility] (OBSTETRICS) 08/16/2023 Insurance Advance Directives * Full Code (Latest Code Status on File) Date Activated Date Inactivated Comments 02/15/2024 3:52 PM 02/18/2024 5:18 PM Question Answer Comments Patient has decision-making capacity? Yes Care Teams Film Technician Relationship Specialty Start Date End Date Pcp, No [address] [place] [address] PCP - General Family Medicine 09/21/23
--- OUTSIDE RECORDS SUMMARY | 2024-11-14 15:10 | XMS_ITS ---
Author Organization Healthcare Address [address] [place] [phone] Care Team Providers Care Raw Shellfish Preparer Name Role Phone Pcp, No Primary Care Provider Unavailabl e Community Health Worker Status:Closed (Closed) Start date:08/16/2023 Enrollment date:08/16/2023 End date:11/03/2024 Close reason:Patient graduated Related social drivers of health:Housing Stability Overview This episode type is for outpatient Community Health Workers enrolling patients in their program. Continued Care and Services Coordination
--- OUTSIDE RECORDS SUMMARY | 2024-11-14 15:10 | XMS_ITS | Clinical Summary ---
Author Organization [facility] Address [address] [place] [address] Care Team Providers Care Cab Starter Name Role Phone Provider, No Known Primary Care Provider Unavail able Allergies Active Allergy Reactions Criticality Noted Date Comments Cephalexin Rash Low 11/05/2022 Ciprofloxacin Hives Medium 01/14/2017 Ketorolac Hives,Unknown (See Comments) Low 01/14/2017 Makes my seizures worse Latex Hives Medium 03/04/2017 Shellfish-Derived Products Anaphylaxis High 02/23/2018 Medications albuterol sulfate HFA 108 (90 Base) MCG/ACT inhaler Inhale 1-2 puffs Every 6 (Six) Hours As Needed. Active famotidine (PEPCID) 20 MG tablet Take 1 tablet by mouth Daily Before Supper. 5 09/06/19 26 Active hydrOXYzine (ATARAX) 25 MG tablet Take 1 tablet by mouth every night at bedtime. 5 Active NIFEdipine XL (PROCARDIA XL) 30 MG 24 hr tablet Take 1 tablet by mouth Daily. 5 Active Vit-Fe Fumarate-FA ( vitamin 28-0.8) 28-0.8 MG tablet tablet Take 1 tablet by mouth Daily. 4 02/18/20 25 Active promethazine (PHENERGAN) 12.5 MG tablet Take 1 tablet by mouth Every 6 (Six) Hours As Needed. Active SUMAtriptan (IMITREX) 25 MG tablet Take 1 tablet by mouth 1 (One) Time. Please see attached for detailed directions 5 Active aspirin 81 MG EC tablet Take 1 tablet by mouth Daily. Active Active Problems Problem Noted Date Diagnosed Date Antepartum multigravida of advanced maternal age 0709/12/2024 Assessment & Plan (09/12/2024 2:05 PM EDT): The patient will be 39 years old at the time of delivery. She was quoted the following age-related risks at term: Risk for Down syndrome 1 in 140, risk for any chromosomal abnormality 1 in 80. Options in genetic testing and genetic screening were discussed with the patient. I noted an option of genetic testing in the 2nd trimester of transabdominal amniocentesis for the determination of chromosomal complement as well as amniotic fluid alpha-fetoprotein for the evaluation of a open neural tube defect. A procedure-related loss rate of 1 in 500 would be quoted with midtrimester amniocentesis. I also discussed the option of analysis of cell-free DNA in maternal blood. I noted this directed analysis measures the relative proportion of chromosomes with the detection rate of Down syndrome quoted as 99% with a false positive rate of less than .1%. Screening for other aneuploidies is also possible but the detection rate is lower with cell-free DNA technology. I then discussed the clinical utility of ultrasound and/or biochemical screening for the detection of aneuploidy as well as open neural tube defects. Further, I have reviewed her self-reported family history and made suggestions as appropriate based on my review. After discussion of the risks and options for genetic testing patient plans on having a cell free DNA screen performed. She plans to have this performed at her local OB office to keep all her records together. We will rescan the patient again at 18 weeks gestation to look for markers for trisomy. Patient understands that if anything abnormal is found either on her cell free DNA screening or on her 18-week ultrasound and amniocentesis can still be performed. Dichorionic diamniotic twin , antepartu m 09/12/2024 Assessment & Plan (10/31/2024 1:58 PM EDT): Patient is for anatomic survey secondary to di/di twins. Today's ultrasound shows normal growth and limited but normal-appearing anatomy. Assessment & Plan (09/12/2024 2:07 PM EDT): A dichorionic/diamniotic (DCDA) is a type of twin gestation where each twin has its own chorionic and amniotic sacs. DCDA pregnancies account for the majority (~76%) of all twin pregnancies. They account for all dizygotic pregnancies and ~20% of monozygotic pregnancies. With a dizygotic , two ova are independently fertilized by two sperm leading to two zygotes. With a monozygotic twin , a DCDA results from the separation of the zygotes at ~1-4 days post fertilization (morula) stage. Ultrasonographic features supporting a DCDA : First Trimester Presence of two gestational sacs with a thick echogenic chorion surrounding each embryo A thick inter-twin membrane Twin-peak sign Two yolk sacs may be seen (this, however, does not differentiate a DCDA from a monochorionic/diamniotic (MCDA) ) Second Trimester When there is no placental fusion, two separate placental sites may be seen A finding of two different genders for each twin is a definitive feature of a dizygotic which in turn will invariably mean a DCDA . If chorionicity cannot be determined, the recommendation is to manage as a monochorionic until proven otherwise. While the complication rate is still much higher with twins than a cornell , a DCDA carries the lowest rate of complications amongst twin pregnancies. Recognized complications: Increased risk of intrauterine growth restriction (IUGR) Placenta-related problems Increased risk of velamentous cord insertion Increased risk of marginal cord insertion Increased incidence of placenta previa spectrum The current recommendation for an uncomplicated DCDA is delivery at 38 weeks' gestation. Family history of congenital anomaly 09/12/2024 Assessment & Plan (09/12/2024 2:09 PM EDT): Patient had a previous child with craniosynostosis. The child relatively early. Patient notes that no other abnormalities were found in that child and has no family history of craniosynostosis or can general chronic disease in the family. Cranial cyst ostosis is generally nonsyndromic and has a low recurrence risk. That is most likely the case in this . There are forms of craniosynostosis that are syndromic and associated with several other diseases. The risk would be low in this patient given her history but we will be evaluating skull shape at each visit. 09/12/2024 Chronic hypertension during , antepartu m 09/12/2024 Assessment & Plan (10/31/2024 1:22 PM EDT): Patient presents for follow-up ultrasound secondary to chronic hypertension and di/di twins. Today's blood pressure is 143/70. Patient currently on Procardia 30 mg daily. If continued elevation above 140 would recommend increasing blood pressure medication. Assessment & Plan (09/12/2024 2:07 PM EDT): The frequency of chronic hypertension in is estimated at 1% to 5%. It is more common in older obese women and in women of -[place] descent. Preexisting hypertension is a recognized risk factor for preeclampsia. Superimposed preeclampsia develops in 13-40% of women with chronic hypertension, depending on diagnostic criteria, etiology (essential versus secondary), duration, and the severity of hypertension. A major reason for this wide range in incidence is that the definition of superimposed preeclampsia is used liberally in some studies. Pregnancies complicated by chronic hypertension are also at an increased risk for abruption placentae with the reported rate in women with mild chronic hypertension ranging from 0.7% to 2.7% and in those with severe hypertension may be as high as 5% to 10%. Both complications may result in significant maternal, , and morbidity and mortality. Women with chronic hypertension who develop superimposed preeclampsia have higher rates of adverse maternal and outcomes, but the independent risks associated with uncomplicated chronic hypertension are less clear. An analysis of 1,807 deliveries in women with chronic hypertension found that uncomplicated chronic hypertension was still associated with greater risk of delivery (odds ratio [OR], 2.7) and hemorrhage (OR, 2.2) compared with women without hypertension (Heber 2004). Other adverse maternal outcomes in women with chronic hypertension include accelerated hypertension with resultant target organ damage (eg, to the heart, brain, and kidneys), although in the absence of preeclampsia, this is extremely uncommon. Women with higher prepregnancy blood pressure or those with secondary hypertension are at greater risk for development of severe hypertension during . Chronic hypertension is associated with an increased risk of gestational diabetes (OR, 1.8). This may reflect similar risk factors for both conditions (obesity) as well as similar pathogenetic mechanisms (insulin resistance). The risk of placental abruption is increased threefold in women with chronic hypertension, although most of the increased risk is associated with superimposed preeclampsia (Sibai 1998). mortality is higher in pregnancies associated with chronic hypertension, most of this increased attributable risk the result of superimposed preeclampsia (Sibai 1998). The relative risk of is reported to be approximately 3.6 in women with superimposed preeclampsia compared with those with uncomplicated chronic hypertension (Rayshawn 1994). is also higher in women with uncomplicated hypertension compared with normotensive controls (relative risk 2.3) (Rayshawn 1994). In non individuals, long-term blood pressure control can lead to significant reductions in the rates of stroke and cardiovascular morbidity and mortality. Based on the available data, there is no compelling evidence that short-term antihypertensive therapy is beneficial for the mother or the fetus in the setting of low-risk hypertension except for a reduction in the rate of exacerbation of hypertension. Antihypertensive therapy, however, is necessary in women with severe hypertension to reduce the acute risk for stroke, congestive heart failure, and renal failure. In addition, control of severe hypertension may permit prolongation and thereby improve outcome. There is no available evidence, however, that control of severe hypertension reduces the rate of either superimposed preeclampsia or abruptio placentae. (Hypertension in Task Force. Obstet Gynecol 2013.) The use of atenolol during the first and second trimesters has been associated with significantly reduced growth along with decreased placental growth and weight. Combination alpha- and beta-blocking agents such as labetalol have been associated with reduced growth but to a lesser extent than that noted with pure beta-blockers such as atenolol. The available evidence suggests that the use of calcium channel-blockers, particularly nifedipine, in the first trimester has not been associated with increased rates of major defects or growth restriction. Antihypertensive therapy with either nifedipine or labetalol can be initiated if the patient develops severe hypertension before term. evaluation for patients requiring antihypertensive therapy should include an ultrasound examination at 18-20 weeks' gestation and repeated at 28 weeks' gestation then monthly thereafter until term. The development of severe hypertension, preeclampsia or abnormal growth requires immediate testing with NST or BPP. Women who develop severe hypertension and those with documented growth restriction by ultrasound examination require hospitalization and consideration of delivery. If superimposed preeclampsia is diagnosed at or beyond 37 weeks' gestation, delivery is undertaken. Patient's blood pressure today is 140/88 with a repeat of 149/84. Patient is currently taking 30 mg of nifedipine XL a day. I have instructed the patient to increase her dose to 30 mg twice daily. Frequently in twice daily dosing is necessary for Procardia XL. Patient has a blood pressure cuff and will check her pressures regularly and bring her results to her physician appointments. We will perform serial scans for growth which we would be performing anyway for dichorionic twins. We would recommend twice-weekly testing beginning at 32 weeks gestation. Estimated Date of Delivery Comme nts Yes 03/27/2025 Date entered adelina or to episode creation Encounters Date Type Department Care Team Description 10/31/2024 1:15 PM EDT Office Visit [facility] [address] [facility] [phone] David Taylor MD Chronic hypertension during , antepartum (Primary Dx); Dichorionic diamniotic twin , antepartum 10/31/2024 12:46 PM EDT - 10/31/2024 11:59 PM EDT Hospital Encounter [facility] [address] [place] [address] Wayne Daniels MD Antepartum multigravida of advanced maternal age; Dichorionic diamniotic twin , antepartum; Family history of congenital anomaly; , unspecified gestational age; Chronic hypertension during , antepartum Discharge Disposition: Home or Self Care 10/31/2024 Travel 09/12/2024 1:00 PM EDT Office Visit [facility] [address] [facility] [phone] Wayne Daniels MD Antepartum multigravida of advanced maternal age (Primary Dx); Dichorionic diamniotic twin , antepartum; Family history of congenital anomaly; , unspecified gestational age; Chronic hypertension during , antepartum 09/12/2024 12:13 PM EDT - 09/12/2024 11:59 PM EDT Hospital Encounter [facility] [address] [place] [phone] Kayli Cedeno, Dichorionic diamniotic twin in first trimester; Antepartum multigravida of advanced maternal age; History of gestational diabetes in prior , currently ; HTN in , chronic; Family history of craniosynostosis; History of ; Obesity in , antepartum Discharge Disposition: Home or Self Care 09/12/2024 Travel from Last 3 Months Social History Tobacco Use Types Packs/Day Years Used Date Smoking Tobacco: Former Cigarettes Smokeless Tobacco: Never Tobacco Cessation:Counseling Given: Not Answered Alcohol Use Standard Drinks/Week Comments Not Currently 0 (1 standard drink = 0.6 oz pur e alcohol) Estimated Date of Delivery Comme nts Yes 03/27/2025 Date entered adelina or to episode creation Sex and Gender Information Value Date Recorded Sex Assigned at Not on file Legal Sex Female 1:35 PM EDT Gender Identity Not on file Sexual Orientation Not on file Last Filed Vital Signs Vital Sign Reading Time Taken Comments Blood Pressure 143/70 10/31/2024 1:06 PM EDT Pulse - - Temperature - - Respiratory Rate - - Oxygen Saturation - - Inhaled Oxygen Concentration - - Weight 141 kg (311 lb) 10/31/2024 1:06 PM EDT Height 170.2 cm (5' 7 ) 09/12/2024 12:56 PM EDT Body Mass Index 48.71 09/12/2024 12:56 PM EDT Plan of Treatment Upcoming Encounters Date Type Department Care Team (Late st Contact Info) Description 11/28/2024 2:15 PM EDT Office Visit [facility] [address] [facility] [address] [place] [phone] 11/28/2024 2:15 PM EDT Appointment [facility] [address] [place] [phone] Health Maintenance Due Date Last Done Comments Annual Gynecologic Pelvic and Breast Exam 1985 PAP SMEAR 2006 ANNUAL PHYSICAL 08/10/2024 INFLUENZA VACCINE 09/22/2024 10/28/2023, 02/17/2019 RSV Vaccine - Adults (1 - Risk 1-dose series) 01/30/2025 TDAP/TD VACCINES (4 - Td or Tdap) 12/22/2033 12/23/2023, 09/07/2022, 02/17/2019 HEPATITIS C SCREENING Completed 07/23/2023 , 07/23/2023, 04/16/2020, Additional history exists Pneumococcal Vaccine 0-49 Aged Out No longer eligible based on patient's age to complete this topic Procedures Procedure Name Priority Date/Time Associated Diagnosis Comments [facility] Routine 10/31/2024 1:57 PM EDT Antepartum multigravida of advanced maternal age Dichorionic diamniotic twin , antepartum Family history of congenital anomaly , unspecified gestational age Chronic hypertension during , antepartum [facility] Routine 09/12/2024 2:12 PM EDT Dichorionic diamniotic twin in first trimester Antepartum multigravida of advanced maternal age History of gestational diabetes in prior , currently HTN in , chronic Family history of craniosynostosis History of Obesity in , antepartum from Last 3 Months Results * [facility] (10/31/2024 1:57 PM EDT) Only the most recent of2 resultswithin the time period is included. Anatomical Region Laterality Modality Ultrasound 10/31/2024 1:14 PM EDT Narrative 10/31/2024 2:00 PM EDT PAT NAME: ROXANA NIETO [facility] REC#: [id number] DA: [id number] PAT GEND: F PAT TYPE: O EXAM AWILDA: [id number] REF PHYS KAYLI CEDENO Comparison Studies The findings of this study [...] EFW (oz) 11 oz EFW by: Hadlock ([id number]-FL) Extended Tibia 26.9 mm 19w 5d 78% Nyla Fibula 28.7 mm 20w 2d 74% Nyla Foot 29.7 mm 52% Chitty Radius 24.9 mm 19w 2d 53% Nyla Ulna 27.7 mm 20w 1d 76% Nyla Cav. septi pel. tr 4.6 mm Aircraft Design Engineer 8.3 mm CM 4.8 mm 53% Nicolaides [...] EFW (oz) 11 oz EFW by: Hadlock ([id number]-[id number]-FL) Extended Tibia 29.3 mm 20w 5d 96% Nyla Fibula 31.3 mm 21w 1d 89% Nyla Foot 34.1 mm 97% Chitty Radius 27.7 mm 20w 2d 72% Nyla Ulna 30.8 mm 21w 4d 98% Nyla Cav. septi pel. tr 3.7 mm Aircraft Design Engineer 9.0 mm CM 4.8 mm 53% Nicolaides [...] SVC: suboptimal IVC: normal 3-vessel view: visualized 3-hfgokr-lmfscye view: not examined Diaphragm: Appears normal Diaphragm: [...] IVC: not examined 3-vessel view: not examined 8-yvulkj-hwsdeyt view: not examined Diaphragm: Appears normal Diaphragm: [...] up in 4 weeks. Coding ======= Description: 51392-79 Detailed Ultrasound Description: 74841-86 Detailed Ultrasound additional fetus Watch Case Polisher: RT Geoff Hines , [facility] Physician: David Taylor MD, FACOG Electronically signed by: David Taylor MD, FACOG at: 14:00 Procedure Note Davdi Taylor MD - 10/31/2024 PAT NAME: ROXANA NIETO [facility] REC#: [id number] DA: [id number] PAT GEND: F PAT TYPE: O EXAM AWILDA: [id number] REF PHYS KAYLI CEDENO Comparison Studies The findings of this study are compared to the prior ultrasound studydated 09/12/24 Patient Status Outpatient Indication ======== Di/Di twin . AMA. MO BMI 46. CHTN. Previous c/s x 3. H/Opreeclampsia. H/O abruption. 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 Maternal Assessment Vxwrbo433 cm Height (ft)5 ft Height (in)9 in Alyczp896 kg Weight (lb)311 lb BMI45.93 kg/m Method ======= Transabdominal ultrasound examination. View: Limited by patient bodyhabitus. Suboptimal view: limited by early gestational age ========= Twin . Dichorionic-diamniotic. Number of fetuses: 2 Dating ====== Method of dating:based on stated BONNIE GA by prior [id number] w + 0 d BONNIE by prior [...] GA19 w + 0 d Assigned BONNIE:03/27/2025 [id number] d Biometry Standard BPD43.5 mm 19w 1d 58% Hadlock OFD59.1 mm 20w 4d 92% Nyla HC166.6 mm 19w 2d 60% Hadlock Cerebellum tr21.2 mm 20w 1d 88% Hill Nuchal fold4.9 mm AC136.9 mm 19w 1d 50% Hadlock Femur32.4 mm 20w 1d 81% Hadlock Qgmucvo21.4 mm 20w 0d 84% Nyla HC / AC1.22 79% Hadlock HMC740 g 19w 3d 76% Hadlock EFW discordance3.5 % EFW (lb)0 lb EFW (oz)11 oz EFW by:Hadlock ([id number]-FL) Extended Tibia26.9 mm 19w 5d 78% Nyla Roftgs01.7 mm 20w 2d 74% Nyla Foot29.7 mm 52% Chitty Hszvam63.9 mm 19w 2d 53% Nyla Ulna27.7 mm 20w 1d 76% Nyla Cav. septi pel. tr4.6 mm Vp8.3 mm CM4.8 mm 53% Nicolaides Nasal bone6.6 mm Head / Face / Neck Cephalic index0.74 6% Nicolaides Extremities / Bony Struc FL / BPD0.74 96% Hadlock FL / HC0.19 83% Hadlock FL / AC0.24 97% Hadlock Other Structures TFQ147 bpm Biometry Standard BPD43.2 mm 19w 0d 54% Hadlock OFD59.2 mm 20w 4d 93% Nyla HC165.5 mm 19w 2d 55% Hadlock Cerebellum tr21.6 mm 20w 3d 95% Hill Nuchal fold5.4 mm AC139.3 mm 19w 2d 57% Hadlock Femur33.1 mm 20w 2d 87% Hadlock Ehwqmpw72.0 mm 19w 6d 79% Nyla HC / AC1.19 61% Hadlock YTB534 g 19w 4d 85% Hadlock EFW discordance3.5 % EFW (lb)0 lb EFW (oz)11 oz EFW by:Hadlock (KTR-CN-TR-FL) Extended Tibia29.3 mm 20w 5d 96% Nyla Wdekpp61.3 mm 21w 1d 89% Nyla Foot34.1 mm 97% Chitty Builux12.7 mm 20w 2d 72% Nyla Ulna30.8 mm 21w 4d 98% Nyla Cav. septi pel. tr3.7 mm Vp9.0 mm CM4.8 mm 53% Nicolaides Head / Face / Neck Cephalic index0.73 4% Nicolaides Extremities / Bony Struc FL / BPD0.77 99% Hadlock FL / HC0.20 98% Hadlock FL / AC0.24 97% Hadlock Other Structures ALN321 bpm General Evaluation Cardiac activity present. FHR [...] Ductal arch view:suboptimal SVC:suboptimal IVC:normal 3-vessel view:visualized 8-aczqcu-sbgvevf view:not examined Diaphragm:Appears normal Diaphragm:Intact Cord insertion:Appears [...] SVC:not examined IVC:not examined 3-vessel view:not examined 0-dcngxc-wwixgco view:not examined Diaphragm:Appears normal Diaphragm:Intact Cord insertion:Appears [...] Structures Uterus / Cervix Cervix:Visualized Approach:Transabdominal Cervical vbzanw34.9 mm Ovaries / Tubes / Adnexa Rt [...] Follow up in 4 weeks. Coding ======= Description:25736-51 Detailed Ultrasound Description:[id number] Detailed Ultrasound additional fetus Watch Case Polisher: RT Geoff Hines , [facility] Physician: David Taylor MD, FACOG Electronically signed by: David Taylor MD, FACOG at: 14:00 us [place] Daniels [place] [facility] [place] Final Re sult from Last 3 Months Insurance [employer] [place] Care Teams Cab Starter Relationship Specialty Start Date End Date Provider, [place] [address] PCP - General 08/10/24
--- OUTSIDE RECORDS SUMMARY | 2024-11-14 15:10 | XMS_ITS | Encounter Summary ---
Author Organization Healthcare Address [address] [place] [address] Care Team Providers Care Whiskey Proof Reader Name Role Phone None, None Primary Care Provider [phone] Unavailable [phone] Pcp, No Primary Care Provider Unavailabl e Margot Browne LPN Unavailable Unavailable Reason for Visit * Reason Comments Community Health Worker Spenser barnes Enrollment Encounter Details Date Type Department Care Team ([facility] st Contact Info) Description 08/16/2023 Patient Outreach Medical Office Building Obstetrics and Gynecology [address], [address] [place] [address] Jessy Martínez Community Health Worker Program Enrollment Social History Tobacco Use Types Packs/Day Years Used Date Smoking Tobacco: Former Cigarettes 0.3 2 2 009 - 2010 Smokeless Tobacco: Never Alcohol Use Standard Drinks/Week Comments Never 0 [...] 08/16/2023 How often do you attend chur or congregational services? More than 4 times per year 08/16/2023 Do you belong to any clubs o r organizations such as christian groups, unions, fraternal or athletic groups, or [...] Recorded Patient Health Questionnaire-2 Score 0 02/03/2024 [facility] - Occupational Stress [...] in a fci (including now)? No 08/16/2023 [place] Depression Scale Answer Date Recorded [place] Depression Scale Total 6 12/07/2022 The thought [...] have received? High school graduate 08/16/2023 Comments Yes Sex and Gender Information Value Date Recorded Sex Assigned at Female 06/23/2023 4:22 PM EDT Legal Sex Female 8:27 AM EDT Gender Identity Female 06/23/2023 4:22 PM EDT Sexual Orientation Straight 06/23/2023 4: 22 PM EDT documented as of this encounter Functional Status * AUDIT-C Score Answer Date of Assessment Author 0 08/16/2023 2:53 PM ANTONIOT Jj Wiley RN * Question Answer Date of Assessment Author Q1: How often do you have a drink containing alcohol? Never 08/16/2023 2:53 PM ANTONIOT Yajaira Wiley RN Q2: How many drinks containing alcohol do you have on a typical day when you are drinking? Patient does not drink 08/16/2023 2:53 PM ANTONIOT Yajaira Wiley RN Q3: How often do you have six or more drinks on one occasion? Never 08/16/2023 2:53 PM ANTONIOT Yajaira Wiley RN * Over the past 2 weeks, how often have you been bothered by any of the following problems? Question Answer Date of Assessment Author Little interest or pleasure in doing things Not at all 02/03/2024 9:59 AM Bettina Grimes Feeling down, depressed, or hopeless Not at all 02/03/2024 9:59 AM Bettina Grimes Patient Health Questionnaire -2 Score 0 02/03/2024 9:59 AM Bettina Grimes * Calculated C-SSRS Risk Score (Lifetime/Recent) Answer Date of Assessment Author No Risk Indicated 02/18/2024 9:45 AM Edwina Harrison RN * Question Answer Date of Assessment Author 1. Wish to be (Past 1 Month) No 02/18/2024 9:45 AM Edwina Cortez RN 2. Non-Specific Active Suici rachel Thoughts (Past 1 Month) No 02/18/2024 9:45 AM Ra alice Cortez RN 6. Suicidal Behavior (Lifetime) No 9:45 AM Edwina Cortez RN documented as of this encounter Plan of Treatment Not on file documented as of this encounter Goals Goal Patient Goal Type Associated Problems Recent Progress Patient-Stated? Author Delayed Delivery Care Plan CPM S22 PP LABOR (OBSTETRICS) No Open Scheduling, Background documented as of this encounter Visit Diagnoses Not on filedocumented in this encounter Additional Health Concerns Active Problems Noted Date Diagnosed Date CPM S22 PP LABOR (OBSTETRICS) 08/16/2023 Infection Onset Date Last Indicated Resolved Time COVID-19 Rule-Out 02/15/2024 02/15/2024 02/15/2024 9:20 PM EST Respiratory Rule-Out 02/15/2024 02/15/2024 024 10:28 PM EST Assessment Noted Time A fall risk assessment has been complete d for the patient 07/23/2023 8:15 AM EDT A Body Mass Index follow-up plan has been documented for the patient 08/06/2023 11:12 AM EDT documented as of this encounter Care Teams Whiskey Proof Reader Relationship Specialty Start Date End Date None, None [address] [place] [address] PCP - General NONE FOUND 09/07/22 09/16/23 Pcp, No [address] [place] [address] PCP - General Family Medicine 09/21/[address] [place] [address] Mixer And Scaler 09/24/22 11/08/23 Margot Browne LPN [employer] [place] [address] TCM Nurse 02/21/24 03/22/24 documented as of this encounter
--- OUTSIDE RECORDS SUMMARY | 2024-11-14 15:10 | XMS_ITS | Encounter Summary ---
Author Organization [facility] Address [address] [place] [address] Care Team Providers Care Inside Outside Sales Representative Name Role Phone Provider, No Known Primary Care Provider Unavail able Encounter Details Date Type Department Care Team (Latest Contact Info) Description 10/31/2024 Travel Social History Tobacco Use Types Packs/Day Years [...] on file documented as of this encounter Plan of Treatment Upcoming Encounters Date Type Department Care Team (Late st Contact Info) Description 11/28/2024 2:15 PM EDT Office Visit [facility] MATERNAL MEDICINE [address] [place] [address] 11/28/2024 2:15 PM EDT Appointment [facility] [address] [place] [address] documented as of this encounter Visit Diagnoses Not on filedocumented in this encounter Care Teams Inside Outside Sales Representative Relationship Specialty Start Date End Date Provider, No Known [facility] [place] [address] PCP - General 08/10/24 documented as of this encounter
[2024-11-14 16:29] LABS: Hematocrit 37.5 % (37.0-47.0); Hemoglobin 12.7 g/dL (12.2-16.2); Immature Granulocytes % 0.5 %; Mean Corpuscular HGB Conc 33.9 g/dL (31.8-35.4); Mean Corpuscular Hemoglobin 29.7 pg (27.0-31.2); Mean Corpuscular Volume 87.6 fl (81-99); Nucleated Red Blood Cells % 0 %; Platelet Count 275 K/mm3 (142-424); Red Blood Count 4.28 M/mm3 (4.20-5.40); Red Cell Distribution Width-SD 45.3 fL; White Blood Count 11.1 K/mm3 (4.8-10.8)
[2024-11-14 17:05] LABS: Albumin Level 4.0 g/dl (3.5-5.0); Chloride 103 mmol/L (98-107); Potassium 4.1 mmoL/L (3.5-5.1); Sodium 134 mmol/L (136-145)
[2024-11-14 17:07] LABS: Blood Urea Nitrogen 3 mg/dl (7-17)
[2024-11-14 17:08] LABS: Alanine Aminotransferase 8 U/L (12-78); Albumin/Globulin Ratio 1.5 (1.1-1.8); Alkaline Phosphatase 93 U/L (38-126); Anion Gap 14.1 mEq/L (5-15); Aspartate Amino Transferase 18 U/L (14-36); Bilirubin,Total 0.5 mg/dl (0.2-1.3); Calcium 9.5 mg/dl (8.4-10.2); Carbon Dioxide 21 mmol/L (22.0-30.0); Creatinine,Serum 0.50 mg/dl (0.52-1.04); Estimated Glomerular Filt Rate 138 ml/min (>60); GFR (African American) 167 ML/MIN (>60); Globulin 2.7 g/dL (1.3-3.2); Glucose 120 mg/dl (74-100); Total Protein,Serum 6.7 g/dl (6.3-8.2); Uric Acid 4.9 mg/dl (2.5-6.2)
== END 2024-11-14 23:59 | disposition home or self-care (01) ==
PROVIDERS: Visit Provider Obstetrics & Gynecology
DX: O10.919 Unspecified pre-existing hypertension complicating pregnancy, unspecified trimester (principal); O99.210 Obesity complicating pregnancy, unspecified trimester; O09.299 Supervision of pregnancy with other poor reproductive or obstetric history, unspecified trimester; Z86.32 Personal history of gestational diabetes; Z3A.00 Weeks of gestation of pregnancy not specified
CPT/HCPCS: 36415; 80053; 83615; 84550; 85025

== ENCOUNTER 2025-01-04 15:05 | Outpatient (CLI) | payer MEDICAID, SELFPAY ==
--- OUTSIDE RECORDS SUMMARY | 2024-11-28 13:12 | XMS_ITS | Encounter Summary ---
Author Organization [facility] Address [address] [place] [address] Care Team Providers Care Equine Internship Name Role Phone Provider, No Known Primary Care Provider Unavail able Reason for Visit * Diagnostic Imaging (Routine) - Authorized Specialty Diagnoses / Procedures Referred By Contmarlen t Referred To Contact Radiology Diagnoses Chronic hypertension during , antepartum Dichorionic diamniotic twin , antepartum Procedures US [facility] Taylor, David Pearl MD [address] [place] [address] Phone: tel: fax: [facility] [address] [place] [address] Phone: tel: Referral ID Status Reason Start Date Expiration Date V isits Requested Visits Authorized [id number] Authorized 10/31/2024 01/30/2026 4 4 Encounter Details Date Type Department Care Team (Latest Contact Info) Description 11/28/2024 2:12 PM EDT - 11/28/2024 11:59 PM EDT Hospital Encounter [facility] [address] [place] [address] Kayli Cedeno, [address] [facility] [address] [place] [address] Discharge Disposition: Home or Self Care Social [...] tablet by mouth Daily Before Supper. 09/05/2024 hydrOXYzine (ATARAX) 25 MG tablet Take 1 [...] Care Team (Late st Contact Info) Description 01/29/2025 3:15 PM EST Office Visit [facility] MATERNAL MEDICINE [address] [place] [address] 01/29/2025 3:15 PM EST Appointment [facility] [address] [place] [address] documented as of this encounter Procedures Procedure Name Priority Date/Time Associated Diagnosis Comments [facility] Routine 11/28/2024 3:05 PM EDT Chronic hypertension during , antepartum Dichorionic diamniotic twin , antepartum documented in this encounter Results * [facility] (11/28/2024 3:05 PM EDT) Anatomical Region Laterality Modality Ultrasound 11/28/2024 2:17 PM EDT Narrative 11/28/2024 3:07 PM EDT PAT NAME: ROXANA NIETO MED REC#: [id number] DA: [id number] PAT GEND: F PAT TYPE: O EXAM AWILDA: [id number] REF PHYS KAYLI CEDENO Comparison Studies The findings of this study are compared to the prior ultrasound study dated 10/31/24 Patient Status Outpatient Indication ======== Di/Di twin . AMA. MO BMI 46. CHTN. Previous c/s x 3. H/O preeclampsia. H/O abruption. 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 Maternal Assessment Height 175 cm Height (ft) 5 ft Height (in) 9 in Weight 141 kg Weight (lb) 311 lb BMI 45.93 kg/m Method ======= Transabdominal ultrasound examination. View: Limited by patient body habitus ========= Twin . Dichorionic-diamniotic. Number of fetuses: 2 Dating ====== Method of dating: based on stated BONNIE GA by prior assessment 23 w + 0 d BONNIE by prior assessment: 03/27/2025 Ultrasound examination on: 11/28/2024 GA by U/S based upon: AC, BPD, Femur, HC GA by U/S 24 w + 0 d BONNIE by U/S: 03/20/2025 GA by U/S based upon (Fetus 2): AC, BPD, Femur, HC GA by U/S (Fetus 2) 23 w + 4 d BONNIE by U/S (Fetus 2): 03/23/2025 Previous dating: based on stated BONNIE, selected on 10/31/2024 Agreed BONNIE of previous datin03/27/2025 Assigned: based on stated BONNIE, selected on 11/28/2024 Assigned GA 23 w + 0 d Assigned BONNIE: 03/27/2025 length 280 d Biometry Standard BPD 57.2 mm 23w 4d 65% Hadlock OFD 81.5 mm 26w 4d >99% Nyla HC 223.4 mm 24w 3d 85% Hadlock Cerebellum tr 28.5 mm 25w 1d >99% Hill AC 192.8 mm 24w 0d 73% Hadlock Femur 42.5 mm 23w 6d 68% Hadlock Humerus 41.6 mm 25w 1d 93% Nyla HC / AC 1.16 EFW 646 g 23w 5d 85% Hadlock EFW discordance 5.8 % EFW (lb) 1 lb EFW (oz) 7 oz EFW by: Hadlock (GUU-MP-BB-FL) Extended Cav. septi pel. tr 6.4 mm Slot Shift Supervisor 7.8 mm CM 5.5 mm 44% Nicolaides Head / Face / Neck Cephalic index 0.70 <1% Nicolaides Extremities / Bony Struc FL / BPD 0.74 FL / HC 0.19 FL / AC 0.22 Other Structures FHR 152 bpm Biometry Standard BPD 56.8 mm 23w 3d 60% Hadlock OFD 80.0 mm 26w 0d >99% Nyla HC 220.0 mm 24w 0d 76% Hadlock Cerebellum tr 26.2 mm 23w 4d 93% Hill AC 188.6 mm 23w 4d 62% Hadlock Femur 41.4 mm 23w 3d 54% Hadlock Humerus 40.9 mm 24w 6d 88% Nyla HC / AC 1.17 EFW 609 g 23w 3d 70% Hadlock EFW discordance 5.8 % EFW (lb) 1 lb EFW (oz) 5 oz EFW by: Hadlock (BTV-JY-ST-FL) Extended Cav. septi pel. tr 7.1 mm Slot Shift Supervisor 6.2 mm CM 6.5 mm 74% Nicolaides Head / Face / Neck Cephalic index 0.71 1% Nicolaides Extremities / Bony Struc FL / BPD 0.73 FL / HC 0.19 FL / AC 0.22 Other Structures FHR 158 bpm General Evaluation Cardiac activity present. FHR 152 bpm. movements present. Presentation breech, maternal left. Placenta Placental site: anterior. Umbilical cord Cord vessels: 3 vessel cord. Amniotic fluid Amount of AF: normal. MVP 4.6 cm. General Evaluation Cardiac activity present. FHR 158 bpm. movements present. Presentation breech, maternal right. Placenta Placental site: anterior. Umbilical cord Cord vessels: 3 vessel cord. Amniotic fluid Amount of AF: normal. MVP 4.7 cm. Anatomy Cranium: Normal Choroid plexus: Appears normal Cavum septi pellucidi: Normal Cerebellum: Normal Cisterna magna: Normal Head / Neck Rt lateral ventricle: Normal Lt lateral ventricle: Normal Lips: Normal Profile: Normal Nose: Normal 4-chamber view: Appears normal RVOT view: Appears normal LVOT view: Appears normal Heart / Thorax 3-vessel view: Appears normal 6-dqvpis-zxcarbx view: Appears normal Cord insertion: Normal Stomach: Appears normal Kidneys: Appears normal Bladder: Appears normal Cervical spine: Appears normal Thoracic spine: Appears normal Lumbar spine: Appears normal Sacral spine: Appears normal Gender: male Wants to know gender: yes Anatomy Cranium: Normal Cavum septi pellucidi: Normal Cerebellum: Normal Cisterna magna: Normal Head / Neck Rt lateral ventricle: Normal Lt lateral ventricle: Normal Lips: not examined Profile: not examined Nose: not examined Face Palate: not examined Orbits: Normal Lens: Normal 4-chamber view: not examined RVOT view: suboptimal LVOT view: not examined Heart / Thorax Aortic arch view: Appears normal Ductal arch view: Appears normal SVC: Appears Normal IVC: Appears Normal 3-vessel view: not examined 1-sdqedc-fpwowvp view: not examined Cord insertion: Appears normal Stomach: Appears normal Kidneys: Appears normal Bladder: Appears normal Gender: male Wants to know gender: yes Maternal Structures Uterus / Cervix Cervix: Visualized Approach: Transabdominal Cervical length 46.0 mm Doppler Arterial Umbilical A PI 0.94 9% Luly Umbilical A RI 0.61 5% Luly Umbilical A PS -32.53 cm/s Umbilical A ED -12.55 cm/s Umbilical A TAmax -21.21 cm/s Umbilical A MD -10.76 cm/s Umbilical A S / D 2.59 6% Luly Umbilical A HR 149 bpm Doppler Arterial Umbilical A PI 1.06 28% Luly Umbilical A RI 0.68 27% Luly Umbilical A PS -29.74 cm/s Umbilical A ED -9.61 cm/s Umbilical A TAmax -18.94 cm/s Umbilical A MD -9.43 cm/s Umbilical A S / D 3.09 22% Luly Umbilical A HR 156 bpm Consultation / Office Visit Office note to follow Impression ========= Size consistent with dates both twins. No anomalies were identified. Amniotic fluid volume is normal for both twins. Umbilical artery S/D ratio is normal for both twins. Patient counseled re signs and symptoms of labor. Recommendation We recommend evaluation in 4 weeks. Follow up appointment scheduled here in 4 weeks. Coding ====== Description: 56590-75 Follow Up Ultrasound Description: [id number] Follow up Ultrasound additional fetus Physician Scribe: RT Geoff Hines , [facility] Physician: Arturo Daniels MD, FACOG Electronically signed by: Arturo Daniels MD, FACOG at: 15:07 Procedure Note Wayne Daniels MD - 11/28/2024 PAT NAME: ROXANA NIETO MED REC#: [id number] DA: [id number] PAT GEND: F PAT TYPE: O EXAM AWILDA: [id number] REF PHYS KAYLI CEDENO Comparison Studies The findings of this study are compared to the prior ultrasound studydated 10/31/24 Patient Status Outpatient Indication ======== Di/Di twin . AMA. MO BMI 46. CHTN. Previous c/s x 3. H/Opreeclampsia. H/O abruption. 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 Maternal Assessment Knclff456 cm Height (ft)5 ft Height (in)9 in Ycxnud261 kg Weight (lb)311 lb BMI45.93 kg/m Method ======= Transabdominal ultrasound examination. View: Limited by patient bodyhabitus ========= Twin . Dichorionic-diamniotic. Number of fetuses: 2 Dating ====== Method of dating:based on stated BONNIE GA by prior [id number] w + 0 d BONNIE by prior assessment:03/27/2025 Ultrasound examination on:11/28/2024 GA by U/S based upon:AC, BPD, Femur, HC GA by U/S24 w + 0 d BONNIE by U/S:03/20/2025 GA by U/S based upon (Fetus 2):AC, BPD, Femur, HC GA by U/S (Fetus 2)23 w + 4 d BONNIE by U/S (Fetus 2):03/23/2025 Previous dating:based on stated BONNIE, selected on 10/31/2024 Agreed BONNIE of previous datin03/27/2025 Assigned:based on stated BONNIE, selected on 11/28/2024 Assigned GA23 w + 0 d Assigned BONNIE:03/27/2025 [id number] d Biometry Standard BPD57.2 mm 23w 4d 65% Hadlock OFD81.5 mm 26w 4d >99% Nyla HC223.4 mm 24w 3d 85% Hadlock Cerebellum tr28.5 mm 25w 1d >99% Hill AC192.8 mm 24w 0d 73% Hadlock Femur42.5 mm 23w 6d 68% Hadlock Spwuthw30.6 mm 25w 1d 93% Nyla HC / AC1.16 EWU474 g 23w 5d 85% Hadlock EFW discordance5.8 % EFW (lb)1 lb EFW (oz)7 oz EFW by:Hadlock (XAT-ER-LI-FL) Extended Cav. septi pel. tr6.4 mm Vp7.8 mm CM5.5 mm 44% Nicolaides Head / Face / Neck Cephalic index0.70 <1% Nicolaides Extremities / Bony Struc FL / BPD0.74 FL / HC0.19 FL / AC0.22 Other Structures EXI465 bpm Biometry Standard BPD56.8 mm 23w 3d 60% Hadlock OFD80.0 mm 26w 0d >99% Nyla HC220.0 mm 24w 0d 76% Hadlock Cerebellum tr26.2 mm 23w 4d 93% Hill AC188.6 mm 23w 4d 62% Hadlock Femur41.4 mm 23w 3d 54% Hadlock Jwoozpt07.9 mm 24w 6d 88% Nyla HC / AC1.17 LUK362 g 23w 3d 70% Hadlock EFW discordance5.8 % EFW (lb)1 lb EFW (oz)5 oz EFW by:Hadlock (BDJ-EE-SA-FL) Extended Cav. septi pel. tr7.1 mm Vp6.2 mm CM6.5 mm 74% Nicolaides Head / Face / Neck Cephalic index0.71 1% Nicolaides Extremities / Bony Struc FL / BPD0.73 FL / HC0.19 FL / AC0.22 Other Structures CXP959 bpm General Evaluation Cardiac activity present. FHR 152 bpm. movements present. Presentation breech, maternal left. Placenta Placental site: anterior. Umbilical cord Cord vessels: 3 vessel cord. Amniotic fluid Amount of AF: normal. MVP 4.6 cm. General Evaluation Cardiac activity present. FHR 158 bpm. movements present. Presentation breech, maternal right. Placenta Placental site: anterior. Umbilical cord Cord vessels: 3 vessel cord. Amniotic fluid Amount of AF: normal. MVP 4.7 cm. Anatomy Cranium:Normal Choroid plexus:Appears normal Cavum septi pellucidi:Normal Cerebellum:Normal Cisterna magna:Normal Head / Neck Rt lateral ventricle:Normal Lt lateral ventricle:Normal Lips:Normal Profile:Normal Nose:Normal 4-chamber view:Appears normal RVOT view:Appears normal LVOT view:Appears normal Heart / Thorax 3-vessel view:Appears normal 9-sxvmyh-lcujksp view:Appears normal Cord insertion:Normal Stomach:Appears normal Kidneys:Appears normal Bladder:Appears normal Cervical spine:Appears normal Thoracic spine:Appears normal Lumbar spine:Appears normal Sacral spine:Appears normal Gender:male Wants to know gender:yes Anatomy Cranium:Normal Cavum septi pellucidi:Normal Cerebellum:Normal Cisterna magna:Normal Head / Neck Rt lateral ventricle:Normal Lt lateral ventricle:Normal Lips:not examined Profile:not examined Nose:not examined Face Palate:not examined Orbits:Normal Lens:Normal 4-chamber view:not examined RVOT view:suboptimal LVOT view:not examined Heart / Thorax Aortic arch view:Appears normal Ductal arch view:Appears normal SVC:Appears Normal IVC:Appears Normal 3-vessel view:not examined 9-qejdlz-iuikxmy view:not examined Cord insertion:Appears normal Stomach:Appears normal Kidneys:Appears normal Bladder:Appears normal Gender:male Wants to know gender:yes Maternal Structures Uterus / Cervix Cervix:Visualized Approach:Transabdominal Cervical ryhtuj42.0 mm Doppler Arterial Umbilical A PI0.94 9% Luly Umbilical A RI0.61 5% Luly Umbilical A PS-32.53 cm/s Umbilical A ED-12.55 cm/s Umbilical A TAmax-21.21 cm/s Umbilical A MD-10.76 cm/s Umbilical A S / D2.59 6% Luly Umbilical A HR149 bpm Doppler Arterial Umbilical A PI1.06 28% Luly Umbilical A RI0.68 27% Luly Umbilical A PS-29.74 cm/s Umbilical A ED-9.61 cm/s Umbilical A TAmax-18.94 cm/s Umbilical A MD-9.43 cm/s Umbilical A S / D3.09 22% Luly Umbilical A HR156 bpm Consultation / Office Visit Office note to follow Impression ========= Size consistent with dates both twins. No anomalies were identified. Amniotic fluid volume is normal for both twins. Umbilical artery S/D ratio is normal for both twins. Patient counseled re signs and symptoms of labor. Recommendation We recommend evaluation in 4 weeks. Follow up appointment scheduled here in 4 weeks. Coding ====== Description:66046-62 Follow Up Ultrasound Description:[id number] Follow up Ultrasound additional fetus Physician Scribe: RT Geoff Hines , [facility] Physician: Arturo Daniels MD, FACOG Electronically signed by: Arturo Daniels MD, FACOG at: 15:07 us David Taylor MD IMG US ORDERABLES Final Result documented in this encounter Visit Diagnoses Not on filedocumented in this encounter Care Teams Equine Internship Relationship Specialty Start Date End Date Provider, No Known [facility] [place] [address] PCP - General 08/10/24 documented as of this encounter
--- OUTSIDE RECORDS SUMMARY | 2024-11-28 13:15 | XMS_ITS | Encounter Summary ---
Author Organization [facility] Address [address] [place] [address] Care Team Providers Care Retail Merchandiser Technician Name Role Phone Provider, No Known Primary Care Provider Unavail able Encounter Details Date Type Department Care Team (Late st Contact Info) Description 11/28/2024 2:15 PM EDT Office Visit [facility] MATERNAL MEDICINE [address] [facility] [address] [place] [phone] Wayne Daniels MD [address] [facility] [address] [place] [address] Dichorionic diamniotic twin , antepartum (Primary Dx); Morbid obesity with BMI of 45.0-49.9, adult; Chronic hypertension during , antepartum; Family history of congenital anomaly; 23 weeks gestation of ; Antepartum multigravida of advanced maternal age Social History Tobacco Use Types Packs/Day Years [...] on file documented as of this encounter Progress Notes * Wayne Daniels MD - 11/28/2024 2:45 PM EDTAssociated Problem(s): Dichorionic diamniotic twin , antepartum Patient returns today for follow-up for diamniotic dichorionic twins. is additionally complicated by advanced maternal age and chronic hypertension. Patient reports no complications since her last visit and notes good movement. Ultrasound today demonstrates diamniotic dichorionic twins. Both twins are normally grown with no abnormality seen. Amniotic fluid volume and umbilical artery Dopplers are normal. Cervical length appears normal. Patient's diamniotic dichorionic twin appears to be progressing normally. She is suffering no complications at this time. We will rescan the patient again in 4 weeks time to assess growth and wellbeing. Patient was counseled extensively regarding labor and will contact her provider immediately if she notices any labor. * Wayne Daniels MD - 11/28/2024 2:44 PM EDTAssociated Problem(s): Chronic hypertension during , antepartum Patient returns today for follow-up for complicated by diamniotic Di chorionic twins. Additionally patient has chronic hypertension for which she is taking Procardia XL 30 mg daily. Patient's blood pressure today is 134/64. Patient has no symptoms of hypertension or preeclampsia. No alterations in her medication are indicated at this point. * Wayne Daniels MD - 11/28/2024 2:15 PM EDT Images from the original note were not included. Documentation of the ultrasound findings, images, and interpretations will be available in the patient's Viewpoint report which is located in the imaging tab in chart review. Maternal/ Medicine Follow Up Note Name: Roxana Fried : 1985 Referring Provider: Natalie Cedeno DO Chief Complaint No chief complaint on file. Subjective History of Present Illness: Roxana Fried is a 39 y.o. 23w0d who presents today for twins BONNIE: Estimated Date of Delivery: 03/27/25 ROS: As noted in HPI. Objective Vital Signs LMP 06/11/2024 Estimated body mass index is 48.71 kg/m?? as calculated from the following: Height as of 09/12/24: 170.2 cm (67 ). Weight as of 10/31/24: 141 kg (311 lb). Physical Exam Ultrasound Impression: See Viewpoint Assessment and Plan Roxana Fried is a 39 y.o. 23w0d who presents today for twins Diagnoses and all orders for this visit: 1. Dichorionic diamniotic twin , antepartum (Primary) Assessment & Plan: Patient returns today for follow-up for diamniotic dichorionic twins. is additionally complicated by advanced maternal age and chronic hypertension. Patient reports no complications since her last visit and notes good movement. Ultrasound today demonstrates diamniotic dichorionic twins. Both twins are normally grown with no abnormality seen. Amniotic fluid volume and umbilical artery Dopplers are normal. Cervical length appears normal. Patient's diamniotic dichorionic twin appears to be progressing normally. She is suffering no complications at this time. We will rescan the patient again in 4 weeks time to assess growth and wellbeing. Patient was counseled extensively regarding labor and will contact her provider immediately if she notices any labor. Orders: - [facility]; Future - [facility]; Future 2. Morbid obesity with BMI of 45.0-49.9, adult - [facility]; Future - [facility]; Future 3. Chronic hypertension during , antepartum Assessment & Plan: Patient returns today for follow-up for complicated by diamniotic Di chorionic twins. Additionally patient has chronic hypertension for which she is taking Procardia XL 30 mg daily. Patient's blood pressure today is 134/64. Patient has no symptoms of hypertension or preeclampsia. No alterations in her medication are indicated at this point. Orders: - [facility]; Future - [facility]; Future 4. Family history of congenital anomaly - [facility]; Future - [facility]; Future 5. 23 weeks gestation of - [facility]; Future - [facility]; Future 6. Antepartum multigravida of advanced maternal age - [facility]; Future - [facility]; Future Follow Up Return in about 4 weeks (around 12/26/2024). I spent 15 minutes caring for the patient on the [...] other procedures such as amniocentesis or CVS. Wayne Daniels MD Maternal Medicine, [facility] 11/28/2024 documented in this encounter Plan of Treatment Upcoming Encounters Date Type Department Care Team (Late st Contact Info) Description 01/29/2025 3:15 PM EST Office Visit [facility] MATERNAL MEDICINE [address] [facility] [address] [place] [address] 01/29/2025 3:15 PM EST Appointment [facility] [address] [place] [address] documented as of this encounter Visit Diagnoses Diagnosis Dichorionic diamniotic twin , antepartum- Primary Morbid obesity with BMI of 45.0-49.9, adult Chronic hypertension during , antepartum Family history of congenital anomaly Family history of congenital anomalies 23 weeks gestation of Antepartum multigravida of advanced maternal age documented in this encounter Care Teams Retail Merchandiser Technician Relationship Specialty Start Date End Date Provider, [place] [address] PCP - General 08/10/24 documented as of this encounter
--- OUTSIDE RECORDS SUMMARY | 2025-01-01 14:31 | XMS_ITS | Encounter Summary ---
[facility] Organization [facility] Address [address] [place] [address] Care Team Providers Care Maintenance Tech Name Role Phone Provider, No Known Primary Care Provider Unavail able Reason for Visit * Diagnostic Imaging (Routine) - Authorized Specialty Diagnoses / Procedures Referred By Chasidy t Referred To Contact Radiology Diagnoses Chronic hypertension during , antepartum Dichorionic diamniotic twin , antepartum Procedures Formerly [facility] Taylor, David Pearl MD [address] [place] [address] Phone: tel: fax: [facility] [address] [place] [address] Phone: tel: Referral ID Status Reason Start Date Expiration Date V isits Requested Visits Authorized [id number] Authorized 10/31/2024 01/30/2026 4 4 Encounter Details Date Type Department Care Team (Latest Contact Info) Description 01/01/2025 2:31 PM EST - 01/01/2025 11:59 PM [facility] Hospital Encounter [facility] [address] [place] [address] Discharge Disposition: Home or Self Care Social [...] Description 01/29/2025 3:15 PM EST Office Visit [facility] MATERNAL [facility]ICINE [address] [place] [address] 01/29/2025 3:15 PM EST Appointment [facility] [address] [place] [address] documented as of this encounter Procedures Procedure Name Priority Date/Time Associated Diagnosis Comments US [facility] Routine 01/01/2025 3:27 PM EST Chronic hypertension during , antepartum Dichorionic diamniotic twin , antepartum documented in this encounter Results * Formerly [facility] (01/01/2025 3:27 PM EST) Anatomical Region Laterality Modality Ultrasound 01/01/2025 2:55 PM EST Narrative 01/02/2025 7:32 PM EST PAT NAME: ROXANA NIETO MED REC#: [id number] DA: [id number] PAT GEND: F PAT TYPE: O EXAM AWILDA: [id number] REF PHYS KAYLI WHITE Comparison Studies The [...] EFW (oz) 11 oz EFW by: Hadlock (ISY-RS-WN-FL) Extended Cav. septi pel. tr 7.1 mm Electrical Continuity Tester 6.4 mm CM 6.4 mm 42% Nicolaides [...] EFW (oz) 14 oz EFW by: Hadlock (GYB-UP-BD-FL) Extended Cav. septi pel. tr 6.4 mm Electrical Continuity Tester 6.8 mm CM 8.2 mm 87% Nicolaides [...] Heart / Thorax 3-vessel view: Appears normal 5-wgbqiw-azfczey view: Appears normal Cord insertion: Appears normal [...] doppler normal x 2 Coding ======= Description: 57467-88 Follow Up Ultrasound Description: 98043-30-98 Follow up Ultrasound additional fetus Radiology Equipment Servicer: RT Geoff Hines , [place] Physician: Radha Burnett MD, FACOG Electronically signed by: Radha Burnett MD, FACOG at: 19:32 Procedure Note Radha Burnett MD - 01/02/2025 PAT NAME: ROXANA NIETO MED REC#: [id number] DA: [id number] PAT GEND: F PAT TYPE: O EXAM AWILDA: [id number] REF PHYS KAYLI WHITE Comparison Studies The findings of this study are compared to the prior ultrasound studydated 11/28/24 Patient Status Outpatient Indication ======== Di/Di twin . AMA. MO BMI 46. CHTN. Previous c/s x 3. H/Opreeclampsia. H/O abruption. 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 Maternal Assessment Aiuofy068 cm Height (ft)5 ft Height (in)9 in Gfunoe709 kg Weight (lb)305 lb BMI45.04 kg/m Method ======= Transabdominal ultrasound examination. View: limited by multiplegestation. Limited by patient body habitus ========= Twin . Dichorionic-diamniotic. Number of fetuses: 2 Dating ====== Method of dating:based on stated BONNIE GA by prior haovexcjge70 w + 6 d BONNIE by prior [...] Hadlock Femur52.2 mm 27w 6d 34% Hadlock Znzvcdu12.4 mm 29w 4d 87% Nyla HC / AC1.09 EFW1,207 g 28w 0d 55% Hadlock EFW discordance7.4 % EFW (lb)2 lb EFW (oz)11 oz EFW by:Hadlock (ELQ-LP-VW-FL) Extended Cav. septi pel. tr7.1 mm Vp6.4 mm CM6.4 mm 42% Nicolaides Head / Face / Neck Cephalic index0.71 <1% Nicolaides Extremities / Bony Struc FL / BPD0.76 FL / HC0.20 FL / AC0.21 Other Structures TGM084 bpm Biometry Standard BPD71.2 mm 28w 4d 63% Hadlock OFD91.8 mm 29w 4d 90% Nyla HC260.5 mm 28w 2d 34% Hadlock Cerebellum tr37.0 mm 30w 3d 99% Hill AC252.7 mm 29w 3d 86% Hadlock Femur53.3 mm 28w 2d 48% Hadlock Lysygvw61.5 mm 30w 0d 94% Nyla HC / AC1.03 EFW1,303 g 28w 4d 77% Hadlock EFW discordance7.4 % EFW (lb)2 lb EFW (oz)14 oz EFW by:Hadlock (CFZ-NO-YX-FL) Extended Cav. septi pel. tr6.4 mm Vp6.8 mm CM8.2 mm 87% Nicolaides Head / Face / Neck Cephalic index0.78 36% Nicolaides Extremities / Bony Struc FL / BPD0.75 FL / HC0.20 FL / AC0.21 Other Structures PDF342 bpm General Evaluation Cardiac activity present. FHR [...] normal Heart / Thorax 3-vessel view:Appears normal 4-dugeyx-niphkam view:Appears normal Cord insertion:Appears normal Stomach:Appears normal [...] UA doppler normal x 2 Coding ======= Description:56990-82 Follow Up Ultrasound Description:08062-78-88 Follow up Ultrasound additional fetus Radiology Equipment Servicer: RT Geoff Hines , [facility] Physician: Radha Burnett MD, FACOG Electronically signed by: Radha Burnett MD, FACOG at: 1119:32 us David Taylor MD IMG US ORDERABLES Final Result documented in this encounter Visit Diagnoses Not on filedocumented in this encounter Care Teams Maintenance Tech Relationship Specialty Start Date End Date Provider, No Known [facility] [place] [address] PCP - General 08/10/24 documented as of this encounter
--- OUTSIDE RECORDS SUMMARY | 2025-01-01 15:15 | XMS_ITS | Encounter Summary ---
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 Encounter Details Date Type Department Care Team (Late st Contact Info) Description 01/01/2025 3:15 PM EST Office Visit [facility] MATERNAL MEDICINE [address] [phone] Radha Burnett MD [address] [place] [address] Dichorionic diamniotic twin , antepartum (Primary Dx); Chronic hypertension during , antepartum Social History Tobacco Use Types [...] Sign Reading Time Taken Comments Blood Pressure 142/83 01/01/2025 2:48 PM EST Pulse - - Temperature - - Respiratory Rate - - Oxygen Saturation - - Inhaled Oxygen Concentration - - Weight 139 kg (305 lb 9.6 oz) 01/01/2025 2:48 PM EST Height 180.3 cm (5' 11 ) 01/01/2025 2:50 PM EST Body Mass Index 42.62 01/01/2025 2:48 PM EST documented in this encounter Progress Notes * Christel Park RN - 01/01/2025 3:15 PM EST F/U with Dr. Cedeno 01/09/25. NIPT insufficient DNA. Pt reports +FM x 2. Reports occasional [place] Cunningham contractions. Denies vaginal bleeding, leakingof fluid. * Radha Burnett MD - 01/01/2025 3:15 PM EST Patient seen in Diagnostic Center today for ultrasound. Please see ultrasound report under imaging tab of patient chart in [facility] (Viewpoint report). Radha Burnett MD documented in this encounter Plan of Treatment Upcoming Encounters Date Type Department Care Team (Late st Contact Info) Description 01/29/2025 3:15 PM EST Office Visit [facility] MATERNAL MEDICINE [address] [facility] [address] [place] [address] 01/29/2025 3:15 PM EST Appointment [facility] US PER DIAG [facility] [address] [place] [address] documented as of this encounter Visit Diagnoses Diagnosis Dichorionic diamniotic twin , antepartum- Primary Chronic hypertension during , antepartum documented in this encounter Care Teams Lithographic Proofer Apprentice Relationship Specialty Start Date End Date Provider, [place] [address] PCP - General 08/10/24 documented as of this encounter
--- OUTSIDE RECORDS SUMMARY | 2025-01-04 15:07 | XMS_ITS | Clinical Summary ---
Author Organization [employer] ([place], [place], [place], [place], [place]) Address [address] [place] [address] Care Team Providers Care Equipment Operat0R Name Role Phone Unavailable Primary Care Provider Unavailabl e Social History Tobacco Use Types Packs/Day Years Used Date Smoking Tobacco: Never Assessed Comments Unknown Sex and Gender Information Value Date Recorded Sex Assigned at Not on file Legal Sex Female 12:29 PM MATERIAL LOADER Gender Identity Not on file Sexual Orientation Not on file Plan of Treatment Upcoming Encounters Date Type Department Care Team (Late st Contact Info) Description 01/30/2025 11:00 AM EST Office Visit [facility] Neurology [address] [facility] [address] [place] [address] Yenny Muir MD [address] [facility] [address] [place], [place] [id number] Health Maintenance Due Date Last Done Comments Depression Screening (12+) 1997 Tobacco Cessation Counseling and Screening (12+) 1997 HIV Screening 2000 Hepatitis C Screening 11/23/2003 Pap Smear 2006 COVID-19 VACCINE (2023-2 5 season) 2024 Influenza Vaccine (#1) 2024 DTAP/TDAP/TD VACCINES (3 - T d or Tdap) 12/22/2033 12/23/2023, 09/07/2022 Pneumococcal Vaccine: 0-49 Years Aged Out No longer eligible b ased on patient's age to complete this topic
--- OUTSIDE RECORDS SUMMARY | 2025-01-04 15:07 | XMS_ITS | Encounter Summary ---
Author Organization [facility] Address [address] [place] [address] Care Team Providers Care Family Service Assistant Name Role Phone Provider, No Known Primary Care Provider Unavail able Encounter Details Date Type Department Care Team (Latest Contact Info) Description 01/01/2025 Travel Social History Tobacco Use Types Packs/Day [...] Description 01/29/2025 3:15 PM EST Office Visit [facility] MEDICAL [facility] MATERNAL MEDICINE [address] [place] [address] 01/29/2025 3:15 PM EST Appointment [facility] US PER DIAG CTR [address] [place] [address] documented as of this encounter Visit Diagnoses Not on filedocumented in this encounter Care Teams Family Service Assistant Relationship Specialty Start Date End Date Provider, [place] [address] PCP - General 08/10/24 documented as of this encounter
--- OUTSIDE RECORDS SUMMARY | 2025-01-04 15:07 | XMS_ITS | Clinical Summary ---
Author Organization [facility] Address [address] [place] [address] Care Team Providers Care Cake Puncher Name Role Phone Pcp, No Primary Care [...] testing 4 Active Lancets (OneTouch Delica Plus [id number]) [facility] TO [facility] 4 TIMES A DAY [...] 07/12/2019 09/16/2022 11/12/2024 Abnormal US 02/01/2019 09/16/20222022 Immunizations Immunization Administration [...] How often do you attend chur or pentecostalism services? More than 4 times per year 08/16/2023 Do you belong to any clubs o r organizations such as druze groups, unions, fraternal or athletic groups, or [...] Recorded Patient Health Questionnaire-2 Score 0 02/03/2024 [facility] - Occupational Stress [...] money to buy more. Never true 02/17/20 Within the past 12 months, t he [...] place to sleep or slept in a nursing home (including now)? No 08/16/2023 [place] Depression Scale Answer Date Recorded [place] Depression Scale Total 6 12/07/2022 The thought [...] any time in the past 12 m onths, were you homeless or living in a nursing home (including now)? No 02/24/2024 Utilities Answer [...] - 3-dose SCDM series) 2012 [facility]-HPV/Cotest 11/23/2015 [id number] Vaccine ( season) 2024 [facility]-Influenza Vaccine (#1) 2024 10/28/2023, [...] ORDERABLES Final Resu lt Performing Organization Address City/[facility] Co de Phone Number [facility] [address] [place] [address] * (ABNORMAL) Hepatitis C Antibody (07/23/2023 8:37 AM EDT) Hepatitis C Antibody Positive( A) Negative 07/23/2023 2:24 PM EDT [facility] Comment:This specimen is sarah ng sent for confirmation by RT-PCR. Blood Venous blood specimen / Unknown Venipuncture / Unknown 07/23/2023 8:37 AM EDT 07/23/2023 12:38 PM EDT Result Hoda Rojas MD LAB BLOOD ORDERABLES Final Resu lt Performing Organization Address City/[facility]/ZIP Co de Phone Number [facility] [address] [place] [address] from Last 3 Months or Most Recently Relevant to Health Maintenance Additional Health Concerns Active Problems Noted Date Diagnosed Date CPM S22 PP LABOR (OBSTETRICS) 08/16/2023 Insurance [facility] MEDICAID Advance Directives * Full Code (Latest Code Status on File) Date Activated Date Inactivated Comments 02/15/2024 3:52 PM 02/18/2024 5:18 PM Question Answer Comments Patient has decision-making capacity? Yes Care Teams Cake Puncher Relationship Specialty Start Date End Date Pcp, No [address] [place] [address] PCP - General Family Medicine 09/21/23
--- OUTSIDE RECORDS SUMMARY | 2025-01-04 15:07 | XMS_ITS | Referral Summary ---
Author Organization [employer] ([place], [place], [place], [place], [place]) Address [address] [place] [address] Care Team Providers Care Pace Analyst Name Role Phone Unavailable Primary Care Provider Unavailabl e Social History Tobacco Use Types Packs/Day Years Used Date Smoking Tobacco: Never Assessed Comments Unknown Sex and Gender Information Value Date Recorded Sex Assigned at Not on file Legal Sex Female 12:29 PM MENDING CARRIER Gender Identity Not on file Sexual Orientation Not on file Plan of Treatment Upcoming Encounters Date Type Department Care Team (Late st Contact Info) Description 01/30/2025 11:00 AM EST Office Visit [facility] Neurology [address] [facility] [address] [place] [address] Yenny Muir MD [address] [facility] [address] [place], [place] [id number]
--- OUTSIDE RECORDS SUMMARY | 2025-01-04 15:07 | XMS_ITS | Encounter Summary ---
Author Organization [facility] Address [address] [place] [address] Care Team Providers Care Rough Rib Grader Name Role Phone Provider, No Known Primary Care Provider Unavail able Encounter Details Date Type Department Care Team (Latest Contact Info) Description 11/28/2024 Travel Social History Tobacco Use Types Packs/Day [...] Description 01/29/2025 3:15 PM EST Office Visit [facility] MATERNAL MEDICINE [address] [place] [address] 01/29/2025 3:15 PM EST Appointment [facility] US PER DIAG CTR [address] [place] [address] documented as of this encounter Visit Diagnoses Not on filedocumented in this encounter Care Teams Rough Rib Grader Relationship Specialty Start Date End Date Provider, [place] [address] PCP - General 08/10/24 documented as of this encounter
--- OUTSIDE RECORDS SUMMARY | 2025-01-04 15:07 | XMS_ITS | Clinical Summary ---
Author Organization [facility] Address [address] [place] [address] Care Team Providers Care Leather Goods Sales Representative Name Role Phone Provider, No Known Primary Care Provider Unavail able Allergies Active Allergy Reactions Criticality Noted Date Comments Cephalexin Rash Low 11/05/2022 Ciprofloxacin Hives Medium 01/14/2017 Ketorolac Hives,Unknown (See Comments) Low 01/14/2017 Makes my seizures worse Latex Hives Medium 03/04/2017 Shellfish Protein-Containing Drug Products Anaphylaxis High 02/23/2018 Medications albuterol sulfate [...] Take 1 tablet by mouth Daily. Active metoclopramide (REGLAN) 10 MG tablet Take 1 tablet by mouth 4 (Four) Times a Day Before Meals & at Bedtime As Needed (nausea). Active Active Problems Problem Noted Date Diagnosed Date Morbid obesity with BMI of 45.0-49.9, adult 08/2024 Antepartum multigravida of advanced maternal age 0709/12/2024 [...] , antepartu m 09/12/2024 Assessment & Plan (11/28/2024 2:45 PM EDT): Patient returns today for follow-up for diamniotic [...] provider immediately if she notices any labor. Assessment & Plan (10/31/2024 1:58 PM EDT): [...] , antepartu m 09/12/2024 Assessment & Plan (11/28/2024 2:44 PM EDT): Patient returns today for follow-up for complicated by diamniotic Di chorionic twins. Additionally patient has chronic hypertension for which she is taking Procardia XL 30 mg daily. Patient's blood pressure today is 134/64. Patient has no symptoms of hypertension or preeclampsia. No alterations in her medication are indicated at this point. Assessment & Plan (10/31/2024 1:22 PM EDT): [...] older obese women and in women of -[place] descent. Preexisting hypertension is a recognized risk [...] Encounters Date Type Department Care Team Description 01/01/2025 3:15 PM EST Office Visit [facility] MATERNAL MEDICINE [address] [phone] Radha Burnett MD Dichorionic diamniotic twin , antepartum (Primary Dx); Chronic hypertension during , antepartum 01/01/2025 2:31 PM EST - 01/01/2025 11:59 PM EST Hospital Encounter [facility] US PER DIAG CTR [address] [phone] Discharge Disposition: Home or Self Care 01/01/2025 Travel 11/28/2024 2:15 PM EDT Office Visit [facility] MATERNAL MEDICINE [address] [phone] Wayne Daniels MD Dichorionic diamniotic twin , antepartum (Primary Dx); Morbid obesity with BMI of 45.0-49.9, adult; Chronic hypertension during , antepartum; Family history of congenital anomaly; 23 weeks gestation of ; Antepartum multigravida of advanced maternal age 1011/28/2024 2:12 PM EDT - 11/28/2024 11:59 PM EDT Hospital Encounter [facility] US PER DIAG CTR [address] [place] [address] Kayli Cedeno DO Discharge Disposition: Home or Self Care 11/28/2024 Travel 10/31/2024 1:15 PM EDT Office Visit [facility] MATERNAL MEDICINE [address] [phone] David Taylor MD Chronic hypertension during , antepartum (Primary Dx); Dichorionic diamniotic twin , antepartum 10/31/2024 12:46 PM EDT - 10/31/2024 11:59 PM EDT Hospital Encounter [facility] US PER DIAG CTR [address] [place] [address] Wayne Daniels MD Antepartum multigravida of advanced maternal age; Dichorionic diamniotic twin , antepartum; Family history of congenital anomaly; , unspecified gestational age; Chronic hypertension during , antepartum Discharge Disposition: Home or Self Care 10/31/2024 Travel from Last 3 Months Family History Relation Name Status Comments Father Mother Social History Tobacco Use Types Packs/Day Years [...] Mass Index 42.62 01/01/2025 2:48 PM EST Plan of Treatment Upcoming Encounters Date Type Department Care Team (Late st Contact Info) Description 01/29/2025 3:15 PM EST Office Visit [facility] MATERNAL MEDICINE [address] [facility] [address] [place] [address] 01/29/2025 3:15 PM EST Appointment [facility] US PER DIAG CTR [address] [place] [address] Health Maintenance Due Date Last Done Comments [...] Procedure Name Priority Date/Time Associated Diagnosis Comments [facility] Routine 01/01/2025 3:27 PM EST Chronic hypertension during , antepartum Dichorionic diamniotic twin , antepartum [facility] Routine 11/28/2024 3:05 PM EDT Chronic hypertension during , antepartum Dichorionic diamniotic twin , antepartum [facility] Routine 10/31/2024 1:57 PM EDT Antepartum multigravida of advanced maternal age Dichorionic diamniotic twin , antepartum Family history of congenital anomaly , unspecified gestational age Chronic hypertension during , antepartum from Last 3 Months Results * [facility] (01/01/2025 3:27 PM EST) Only the most recent of3 resultswithin the time period is included. Anatomical Region Laterality Modality Ultrasound 01/01/2025 2:55 PM EST Narrative 01/02/2025 7:32 PM EST PAT NAME: ROXANA NIETO [facility] REC#: [id number] DA: [id number] PAT GEND: F PAT TYPE: O EXAM AWILDA: [id number] REF PHYS KAYLI CEDENO Comparison Studies The [...] EFW (oz) 11 oz EFW by: Hadlock (KBS-OZ-HI-FL) Extended Cav. septi pel. tr 7.1 mm Club Waiter/Waitress 6.4 mm CM 6.4 mm 42% Nicolaides [...] EFW (oz) 14 oz EFW by: Hadlock (OZE-HZ-HI-FL) Extended Cav. septi pel. tr 6.4 mm Club Waiter/Waitress 6.8 mm CM 8.2 mm 87% Nicolaides [...] Heart / Thorax 3-vessel view: Appears normal 8-lhvqnx-srbfhhk view: Appears normal Cord insertion: Appears normal [...] doppler normal x 2 Coding ======= Description: 91540-45 Follow Up Ultrasound Description: 17695-34-70 Follow up Ultrasound additional fetus Auto Fleet Manager: RT Donny R , [facility] Physician: Radha Burnett MD, FACOG Electronically signed by: Radha Burnett MD, FACOG at: 19:32 Procedure Note Radha Burnett MD - 01/02/2025 PAT NAME: ROXANA NIETO [facility] REC#: [id number] DA: [id number] PAT GEND: F PAT TYPE: O EXAM AWILDA: [id number] REF PHYS KAYLI CEDENO Comparison Studies The findings of this study are compared to the prior ultrasound studydated 11/28/24 Patient Status Outpatient Indication ======== Di/Di twin . AMA. MO BMI 46. CHTN. Previous c/s x 3. H/Opreeclampsia. H/O abruption. 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 Maternal Assessment Exyrqr113 cm Height (ft)5 ft Height (in)9 in Ujeonb361 kg Weight (lb)305 lb BMI45.04 kg/m Method ======= Transabdominal ultrasound examination. View: limited by multiplegestation. Limited by patient body habitus ========= Twin . Dichorionic-diamniotic. Number of fetuses: 2 Dating ====== Method of dating:based on stated BONNIE GA by prior [id number] w + 6 d BONNIE by prior [...] Hadlock Femur52.2 mm 27w 6d 34% Hadlock Dxidsvx61.4 mm 29w 4d 87% Nyla HC / AC1.09 EFW1,207 g 28w 0d 55% Hadlock EFW discordance7.4 % EFW (lb)2 lb EFW (oz)11 oz EFW by:Hadlock (KKZ-[id number]-FL) Extended Cav. septi pel. tr7.1 mm Vp6.4 mm CM6.4 mm 42% Nicolaides Head / Face / Neck Cephalic index0.71 <1% Nicolaides Extremities / Bony Struc FL / BPD0.76 FL / HC0.20 FL / AC0.21 Other Structures SOS677 bpm Biometry Standard BPD71.2 mm 28w 4d 63% Hadlock OFD91.8 mm 29w 4d 90% Nyla HC260.5 mm 28w 2d 34% Hadlock Cerebellum tr37.0 mm 30w 3d 99% Hill AC252.7 mm 29w 3d 86% Hadlock Femur53.3 mm 28w 2d 48% Hadlock Nukildr10.5 mm 30w 0d 94% Nyla HC / AC1.03 EFW1,303 g 28w 4d 77% Hadlock EFW discordance7.4 % EFW (lb)2 lb EFW (oz)14 oz EFW by:Hadlock (MZG-[id number]-FL) Extended Cav. septi pel. tr6.4 mm Vp6.8 mm CM8.2 mm 87% Nicolaides Head / Face / Neck Cephalic index0.78 36% Nicolaides Extremities / Bony Struc FL / BPD0.75 FL / HC0.20 FL / AC0.21 Other Structures FWG422 bpm General Evaluation Cardiac activity present. FHR [...] normal Heart / Thorax 3-vessel view:Appears normal 7-czypsb-ffuuoop view:Appears normal Cord insertion:Appears normal Stomach:Appears normal [...] UA doppler normal x 2 Coding ======= Description:10977-01 Follow Up Ultrasound Description:73170-50-48 Follow up Ultrasound additional fetus Auto Fleet Manager: RT Geoff Hines , [facility] Physician: Radha Burnett MD, FACOG Electronically signed by: Radha Burnett MD, FACOG at: 9:32 us David Taylor MD G US ORDERABLES Final Result from Last 3 Months Insurance [employer] MEDICAID [place] Care Teams Leather Goods Sales Representative Relationship Specialty Start Date End Date Provider, No Known [facility] [place] [address] PCP - General 08/10/24
[2025-01-04 16:42] LABS: Hematocrit 38.6 % (37.0-47.0); Hemoglobin 13.3 g/dL (12.2-16.2); Immature Granulocytes % 0.6 %; Mean Corpuscular HGB Conc 34.5 g/dL (31.8-35.4); Mean Corpuscular Hemoglobin 30.0 pg (27.0-31.2); Mean Corpuscular Volume 87.1 fl (81-99); Nucleated Red Blood Cells % 0 %; Platelet Count 239 K/mm3 (142-424); Red Blood Count 4.43 M/mm3 (4.20-5.40); Red Cell Distribution Width-SD 44.4 fL; White Blood Count 11.2 K/mm3 (4.8-10.8)
[2025-01-04 17:46] LABS: Glucose 1 Hour 70 mg/dL (74-100)
[2025-01-05 17:14] LABS: RPR W/RFX Titers Nonreactive (Nonreactive)
== END 2025-01-04 23:59 | disposition home or self-care (01) ==
LOC: LAB 15:05
PROVIDERS: PCP Obstetrics & Gynecology; Visit Provider Obstetrics & Gynecology
DX: O09.299 Supervision of pregnancy with other poor reproductive or obstetric history, unspecified trimester (principal); O10.919 Unspecified pre-existing hypertension complicating pregnancy, unspecified trimester; Z86.32 Personal history of gestational diabetes; Z3A.00 Weeks of gestation of pregnancy not specified
CPT/HCPCS: 36415; 82947; 85025; 86592

== ENCOUNTER 2025-01-16 15:23 | Outpatient (CLI) | payer MEDICAID, SELFPAY ==
--- OUTSIDE RECORDS SUMMARY | 2024-11-28 13:12 | XMS_ITS | Encounter Summary ---
Author Organization [facility] Address [address] [place] [address] Care Team Providers Care Parole Agent Name Role Phone Provider, No Known Primary Care Provider Unavail able Reason for Visit * Diagnostic Imaging (Routine) - Authorized Specialty Diagnoses / Procedures Referred By Contmarlen t Referred To Contact Radiology Diagnoses Chronic hypertension during , antepartum Dichorionic diamniotic twin , antepartum Procedures [facility] Taylor, David Pearl MD [address] [place] [address] Phone: tel: fax: [facility] US PER DIAG CTR [address] [place] [address] Phone: tel: Referral ID Status Reason Start Date Expiration Date V isits Requested Visits Authorized [id number] Authorized 10/31/2024 01/30/2026 4 4 Encounter Details Date Type Department Care Team (Latest Contact Info) Description 11/28/2024 2:12 PM EDT - 11/28/2024 11:59 PM EDT Hospital Encounter [facility] US PER DIAG CTR [address] [place] [address] Kayli Cedeno, 12[address] [facility] [address] [place] [address] Discharge Disposition: Home or Self Care Social [...] Description 01/29/2025 3:15 PM EST [facility] [address] [place] [address] 01/29/2025 3:15 PM EST Appointment [facility] US PER DIAG CTR [address] [place] [address] documented as of this encounter Procedures Procedure Name Priority Date/Time Associated Diagnosis Comments [facility] Routine 11/28/2024 3:05 PM EDT Chronic hypertension during , antepartum Dichorionic diamniotic twin , antepartum documented in this encounter Results * [facility] (11/28/2024 3:05 PM EDT) Anatomical Region Laterality Modality Ultrasound 11/28/2024 2:17 PM EDT Narrative 11/28/2024 3:07 PM EDT PAT NAME: ROXANA NIETO MED REC#: [id number] DA: [id number] PAT GEND: F PAT TYPE: O EXAM AWILDA: [id number] REF PHYS KAYLI CEDENO Comparison Studies The [...] EFW (oz) 7 oz EFW by: Hadlock (IOL-NG-JI-FL) Extended Cav. septi pel. tr 6.4 mm Telecommunicator 7.8 mm CM 5.5 mm 44% Nicolaides [...] EFW (oz) 5 oz EFW by: Hadlock (OHV-CM-KE-FL) Extended Cav. septi pel. tr 7.1 mm Telecommunicator 6.2 mm CM 6.5 mm 74% Nicolaides [...] Heart / Thorax 3-vessel view: Appears normal 3-fifocx-taajsqa view: Appears normal Cord insertion: Normal Stomach: [...] IVC: Appears Normal 3-vessel view: not examined 3-ycolbi-sltempb view: not examined Cord insertion: Appears normal [...] here in 4 weeks. Coding ====== Description: 33853-88 Follow Up Ultrasound Description: 44136-42-82 Follow up Ultrasound additional fetus Poll Watcher: RT Geoff Hines , [facility] Physician: Arturo Daniels MD, FACOG Electronically signed by: Arturo Daniels MD, FACOG at: 15:07 Procedure Note Wayne Daniels MD - 11/28/2024 PAT NAME: ROXANA NIETO MED REC#: [id number] DA: [id number] PAT GEND: F PAT TYPE: O EXAM AWILDA: [id number] REF PHYS KAYLI CEDENO Comparison Studies The findings of this study are compared to the prior ultrasound studydated 10/31/24 Patient Status Outpatient Indication ======== Di/Di twin . AMA. MO BMI 46. CHTN. Previous c/s x 3. H/Opreeclampsia. H/O abruption. 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 Maternal Assessment Giwrcn267 cm Height (ft)5 ft Height (in)9 in Eeeqeq777 kg Weight (lb)311 lb BMI45.93 kg/m Method ======= Transabdominal ultrasound examination. View: Limited by patient bodyhabitus ========= Twin . Dichorionic-diamniotic. Number of fetuses: 2 Dating ====== Method of dating:based on stated BONNIE GA by prior klggcoagnf30 w + 0 d BONNIE by prior [...] GA23 w + 0 d Assigned BONNIE:03/27/2025 wfmirg231 d Biometry Standard BPD57.2 mm 23w 4d 65% Hadlock OFD81.5 mm 26w 4d >99% Nyla HC223.4 mm 24w 3d 85% Hadlock Cerebellum tr28.5 mm 25w 1d >99% Hill AC192.8 mm 24w 0d 73% Hadlock Femur42.5 mm 23w 6d 68% Hadlock Ofsnhrw87.6 mm 25w 1d 93% Nyla HC / AC1.16 VNA665 g 23w 5d 85% Hadlock EFW discordance5.8 % EFW (lb)1 lb EFW (oz)7 oz EFW by:Hadlock (WNL-US-AJ-FL) Extended Cav. septi pel. tr6.4 mm Vp7.8 mm CM5.5 mm 44% Nicolaides Head / Face / Neck Cephalic index0.70 <1% Nicolaides Extremities / Bony Struc FL / BPD0.74 FL / HC0.19 FL / AC0.22 Other Structures GHI791 bpm Biometry Standard BPD56.8 mm 23w 3d 60% Hadlock OFD80.0 mm 26w 0d >99% Nyla HC220.0 mm 24w 0d 76% Hadlock Cerebellum tr26.2 mm 23w 4d 93% Hill AC188.6 mm 23w 4d 62% Hadlock Femur41.4 mm 23w 3d 54% Hadlock Zxsiwcg79.9 mm 24w 6d 88% Nyla HC / AC1.17 CFT987 g 23w 3d 70% Hadlock EFW discordance5.8 % EFW (lb)1 lb EFW (oz)5 oz EFW by:Hadlock (DVR-SU-HR-FL) Extended Cav. septi pel. tr7.1 mm Vp6.2 mm CM6.5 mm 74% Nicolaides Head / Face / Neck Cephalic index0.71 1% Nicolaides Extremities / Bony Struc FL / BPD0.73 FL / HC0.19 FL / AC0.22 Other Structures JWE575 bpm General Evaluation Cardiac activity present. FHR [...] normal Heart / Thorax 3-vessel view:Appears normal 1-vuxxji-tkrpszj view:Appears normal Cord insertion:Normal Stomach:Appears normal Kidneys:Appears [...] SVC:Appears Normal IVC:Appears Normal 3-vessel view:not examined 7-cynchc-lkpwqwb view:not examined Cord insertion:Appears normal Stomach:Appears normal Kidneys:Appears normal Bladder:Appears normal Gender:male Wants to know gender:yes Maternal Structures Uterus / Cervix Cervix:Visualized Approach:Transabdominal Cervical kdnmuq04.0 mm Doppler Arterial Umbilical A PI0.94 9% [...] scheduled here in 4 weeks. Coding ====== Description:88891-30 Follow Up Ultrasound Description:49429-09-01 Follow up Ultrasound additional fetus Poll Watcher: RT Geoff Hines , [facility] Physician: Arturo Daniels MD, FACOG Electronically signed by: Arturo Daniels MD, FACOG at: 15:07 us David Taylor MD IMG US ORDERABLES Final Result documented in this encounter Visit Diagnoses Not on filedocumented in this encounter Care Teams Parole Agent Relationship Specialty Start Date End Date Provider, No Known [place] [address] PCP - General 08/10/24 documented as of this encounter
--- OUTSIDE RECORDS SUMMARY | 2024-11-28 13:15 | XMS_ITS | Encounter Summary ---
Author Organization [facility] Address [address] [place] [address] Care Team Providers Care Ios Architect Name Role Phone Provider, No Known Primary Care Provider Unavail able Encounter Details Date Type Department Care Team (Late st Contact Info) Description 11/28/2024 2:15 PM EDT Office Visit [facility] MATERNAL MEDICINE [address] [facility] [address] [place] [phone] Wayne Daniels MD [address] [facility] [address] [address] [place] [address] Dichorionic diamniotic twin , antepartum (Primary Dx); [...] Orders: - [facility]; Future - [facility]; Future 2. Morbid obesity with BMI of 45.0-49.9, adult - [facility]; Future - [facility]; Future 3. Chronic hypertension during [...] Orders: - [facility]; Future - [facility]; Future 4. Family history of congenital anomaly - [facility]; Future - [facility]; Future 5. 23 weeks gestation of - [facility]; Future - [facility]; Future 6. Antepartum multigravida of advanced maternal age - [facility]; Future - [facility]; Future Follow Up Return in [...] or CVS. Wayne Daniels MD Maternal Medicine, [facility] 11/28/2024 documented in this encounter Plan of Treatment Upcoming Encounters Date Type Department Care Team (Late st Contact Info) Description 01/29/2025 3:15 PM EST Office Visit [facility] MATERNAL MEDICINE [address] [facility] [address] [place] [address] 01/29/2025 3:15 PM EST Appointment [facility] PER [facility] [address] [place] [address] documented as of this encounter Visit Diagnoses Diagnosis Dichorionic diamniotic twin , antepartum- Primary Morbid obesity with BMI of 45.0-49.9, adult Chronic hypertension during , antepartum Family history of congenital anomaly Family history of congenital anomalies 23 weeks gestation of Antepartum multigravida of advanced maternal age documented in this encounter Care Teams Ios Architect Relationship Specialty Start Date End Date Provider, [place] [address] PCP - General 08/10/24 documented as of this encounter
--- OUTSIDE RECORDS SUMMARY | 2025-01-01 14:31 | XMS_ITS | Encounter Summary ---
[facility] Address [address] [place] [address] Care Team Providers Care Home Designer Name Role Phone Provider, No Known Primary Care Provider Unavail able Reason for Visit * Diagnostic Imaging (Routine) - Authorized Specialty Diagnoses / Procedures Referred By Contmarlen t Referred To Contact Radiology Diagnoses Chronic hypertension during , antepartum Dichorionic diamniotic twin , antepartum Procedures [facility] Taylor, David Pearl MD [address] [place] [address] Phone: tel: fax: [facility] US PER DIAG CTR [address] [place] [address] Phone: tel: Referral ID Status Reason Start Date Expiration Date V isits Requested Visits Authorized [id number] Authorized 10/31/2024 01/30/2026 4 4 Encounter Details Date Type Department Care Team (Latest Contact Info) Description 01/01/2025 2:31 PM EST - 01/01/2025 11:59 PM EST Hospital Encounter [facility] US PER DIAG CTR [address] [place] [address] Kayli Cedeno, [address] [place] [address] [address] [place] [address] Discharge Disposition: Home or Self Care Social [...] Description 01/29/2025 3:15 PM EST Office Visit [facility] MAT[facility]ICINE [address] [place] [address] 01/29/2025 3:15 PM EST Appointment [facility] US PER DIAG CTR [address] [place] [address] documented as of this encounter Procedures Procedure Name Priority Date/Time Associated Diagnosis Comments [facility] Routine 01/01/2025 3:27 PM EST Chronic hypertension during , antepartum Dichorionic diamniotic twin , antepartum documented in this encounter Results * [facility] (01/01/2025 3:27 PM EST) Anatomical Region Laterality Modality Ultrasound 01/01/2025 2:55 PM EST Narrative 01/02/2025 7:32 PM EST PAT NAME: ROXANA NIETO [facility] REC#: [id number] DA: [id number] PAT GEND: F PAT TYPE: O EXAM AWILDA: [id number] REF PHYS KAYLI CEDENO Comparison Studies The [...] EFW (oz) 11 oz EFW by: Hadlock (VRF-JU-SI-FL) Extended Cav. septi pel. tr 7.1 mm It Project Manager 6.4 mm CM 6.4 mm 42% Nicolaides [...] EFW (oz) 14 oz EFW by: Hadlock (JKA-TQ-BZ-FL) Extended Cav. septi pel. tr 6.4 mm It Project Manager 6.8 mm CM 8.2 mm 87% Nicolaides [...] Heart / Thorax 3-vessel view: Appears normal 4-qsbocd-pysrqrx view: Appears normal Cord insertion: Appears normal [...] doppler normal x 2 Coding ======= Description: 33662-24 Follow Up Ultrasound Description: 67799-15-43 Follow up Ultrasound additional fetus Ethanol Maintenance Mechanic: RT Geoff Hines , [facility] Physician: Radha Burnett MD, FACOG Electronically signed by: Radha Burnett MD, FACOG at: 19:32 Procedure Note Radha Burnett MD - 01/02/2025 PAT NAME: ROXANA NIETO MED REC#: [id number] DA: [id number] PAT GEND: F PAT TYPE: O EXAM AWILDA: [id number] REF PHYS KAYLI CEDENO Comparison Studies The findings of this study are compared to the prior ultrasound studydated 11/28/24 Patient Status Outpatient Indication ======== Di/Di twin . AMA. MO BMI 46. CHTN. Previous c/s x 3. H/Opreeclampsia. H/O abruption. 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 Maternal Assessment Gwyiwr037 cm Height (ft)5 ft Height (in)9 in Fxpwuj543 kg Weight (lb)305 lb BMI45.04 kg/m Method [...] GA27 w + 6 d Assigned BONNIE:03/27/2025 sskpux822 d Biometry Standard BPD68.8 mm 27w 5d 32% Hadlock OFD97.0 mm 31w 2d >99% Nyla HC266.3 mm 29w 0d 56% Hadlock Cerebellum tr37.1 mm 30w 4d 99% Hill AC243.3 mm 28w 4d 65% Hadlock Femur52.2 mm 27w 6d 34% Hadlock Alcrnqu52.4 mm 29w 4d 87% Nyla HC / AC1.09 EFW1,207 g 28w 0d 55% Hadlock EFW discordance7.4 % EFW (lb)2 lb EFW (oz)11 oz EFW by:Hadlock (GFN-JT-TC-FL) Extended Cav. septi pel. tr7.1 mm Vp6.4 mm CM6.4 mm 42% Nicolaides Head / Face / Neck Cephalic index0.71 <1% Nicolaides Extremities / Bony Struc FL / BPD0.76 FL / HC0.20 FL / AC0.21 Other Structures IKK014 bpm Biometry Standard BPD71.2 mm 28w 4d 63% Hadlock OFD91.8 mm 29w 4d 90% Nyla HC260.5 mm 28w 2d 34% Hadlock Cerebellum tr37.0 mm 30w 3d 99% Hill AC252.7 mm 29w 3d 86% Hadlock Femur53.3 mm 28w 2d 48% Hadlock Kbcawcu99.5 mm 30w 0d 94% Nyla HC / AC1.03 EFW1,303 g 28w 4d 77% Hadlock EFW discordance7.4 % EFW (lb)2 lb EFW (oz)14 oz EFW by:Hadlock (PIQ-PE-SJ-FL) Extended Cav. septi pel. tr6.4 mm Vp6.8 mm CM8.2 mm 87% Nicolaides Head / Face / Neck Cephalic index0.78 36% Nicolaides Extremities / Bony Struc FL / BPD0.75 FL / HC0.20 FL / AC0.21 Other Structures EZX770 bpm General Evaluation Cardiac activity present. FHR [...] normal Heart / Thorax 3-vessel view:Appears normal 9-iccddr-gbnyvjv view:Appears normal Cord insertion:Appears normal Stomach:Appears normal [...] UA doppler normal x 2 Coding ======= Description:66907-65 Follow Up Ultrasound Description:50352-33-91 Follow up Ultrasound additional fetus Ethanol Maintenance Mechanic: RT Geoff Hines , [facility] Physician: Radha Burnett MD, FACOG Electronically signed by: Radha Burnett MD, FACOG at: 9:32 us David Taylor MD IMG US ORDERABLES Final Result documented in this encounter Visit Diagnoses Not on filedocumented in this encounter Care Teams Home Designer Relationship Specialty Start Date End Date Provider, [place] [address] PCP - General 08/10/24 documented as of this encounter
--- OUTSIDE RECORDS SUMMARY | 2025-01-01 15:15 | XMS_ITS | Encounter Summary ---
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 Reports occasional [place] Cunningham contractions. Denies vaginal bleeding, leakingof fluid. * Radha Burnett MD - 01/01/2025 3:15 PM EST Patient seen in Diagnostic Center today for ultrasound. Please see ultrasound report under imaging tab of patient chart in [facility] (Viewpoint report). Radha Burnett MD documented in this encounter Plan of Treatment Upcoming Encounters Date Type Department Care Team (Late st Contact Info) Description 01/29/2025 3:15 PM EST Office Visit [facility] MATERNAL MEDICINE [address] [facility] [address] [place] [address] 01/29/2025 3:15 PM EST Appointment [facility] US PER DIAG CTR [address] [place] [address] documented as of this encounter Visit Diagnoses Diagnosis Dichorionic diamniotic twin , antepartum- Primary Chronic hypertension during , antepartum documented in this encounter Care Teams Decorative Engraver Relationship Specialty Start Date End Date Provider, [place] [address] PCP - General 08/10/24 documented as of this encounter
--- OUTSIDE RECORDS SUMMARY | 2025-01-16 15:29 | XMS_ITS | Encounter Summary ---
Author Organization [facility] Address [address] [place] [address] Care Team Providers Care Rural Carrier Name Role Phone Provider, No Known Primary [...] Description 01/29/2025 3:15 PM EST Office Visit [facility] MEDICAL [facility] MATERNAL MEDICINE [address] [place] [address] 01/29/2025 3:15 PM EST Appointment [facility] US PER DIAG CTR [address] [place] [address] documented as of this encounter Visit Diagnoses Not on filedocumented in this encounter Care Teams Rural Carrier Relationship Specialty Start Date End Date Provider, [place] [address] PCP - General 08/10/24 documented as of this encounter
--- OUTSIDE RECORDS SUMMARY | 2025-01-16 15:29 | XMS_ITS | Referral Summary ---
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
--- OUTSIDE RECORDS SUMMARY | 2025-01-16 15:29 | XMS_ITS | Encounter Summary ---
Author Organization [facility] Address [address] [place] [address] Care Team Providers Care Psychiatric Np Name Role Phone Provider, No Known Primary [...] Description 01/29/2025 3:15 PM EST Office Visit [facility] MEDICAL [facility] MATERNAL MEDICINE [address] [place] [address] 01/29/2025 3:15 PM EST Appointment [facility] US PER DIAG CTR [address] [place] [address] documented as of this encounter Visit Diagnoses Not on filedocumented in this encounter Care Teams Psychiatric Np Relationship Specialty Start Date End Date Provider, [place] [address] PCP - General 08/10/24 documented as of this encounter
--- OUTSIDE RECORDS SUMMARY | 2025-01-16 15:29 | XMS_ITS | Clinical Summary ---
Author Organization [employer] ([place], [place], [place], [place], [place]) Address [address] [place] [address] Care Team Providers Care Social Media Editor Name Role Phone Unavailable Primary Care Provider Unavailabl e Social History Tobacco Use Types Packs/Day Years Used Date Smoking Tobacco: Never Assessed Comments Unknown Sex and Gender Information Value Date Recorded Sex Assigned at Not on file Legal Sex Female 12:29 PM OIL WELL GUN PERFORATOR OPERATOR Gender Identity Not on file Sexual Orientation Not on file Plan of Treatment Upcoming Encounters Date Type Department Care Team (Late st Contact Info) Description 01/30/2025 11:00 AM EST Office Visit [facility] Neurology [address] [facility] [address] [place] [address] Yenny Muir MD [address] [facility] [address] [place], [place] [id number] Health Maintenance Due Date Last Done Comments [...]
--- OUTSIDE RECORDS SUMMARY | 2025-01-16 15:29 | XMS_ITS | Clinical Summary ---
Author Organization [facility] Address [address] [place] [address] Care Team Providers Care Automobile Detailer Name Role Phone Provider, No Known Primary [...] older obese women and in women of -Samoan descent. Preexisting hypertension is a recognized risk [...] Description 01/01/2025 3:15 PM EST Office Visit [facility] MATERNAL MEDICINE [address] [facility] [address] [place] [address] Radha Burnett MD Dichorionic diamniotic twin , antepartum (Primary Dx); Chronic hypertension during , antepartum 01/01/2025 2:31 PM EST - 01/01/2025 11:59 PM EST Hospital Encounter [facility] [address] [place] [address] Kayli Cedeno, DO Discharge Disposition: Home or Self Care 01/01/2025 Travel 11/28/2024 2:15 PM EDT Office Visit [facility] MATERNAL MEDICINE [address] [facility] [address] [place], [place] [address] Wayne Daniels MD Dichorionic diamniotic twin , antepartum (Primary Dx); Morbid obesity with BMI of 45.0-49.9, adult; Chronic hypertension during , antepartum; Family history of congenital anomaly; 23 weeks gestation of ; Antepartum multigravida of advanced maternal age 1011/28/2024 2:12 PM EDT - 11/28/2024 11:59 PM EDT Hospital Encounter [facility] [address] [place] [address] Kayli Cedeno, DO Discharge Disposition: Home or Self Care 11/28/2024 Travel 10/31/2024 1:15 PM EDT Office Visit [facility] MATERNAL MEDICINE [address] [facility] [address] [place] [address] David Taylor MD Chronic hypertension during , antepartum (Primary Dx); Dichorionic diamniotic twin , antepartum 10/31/2024 12:46 PM EDT - 10/31/2024 11:59 PM EDT Hospital Encounter [facility] [address] [place] [address] Wayne Daniels MD Antepartum multigravida [...] Description 01/29/2025 3:15 PM EST Office Visit [facility] [address] [facility] [address] [place] [address] 01/29/2025 3:15 PM EST Appointment [facility] [address] [place] [address] Health Maintenance Due Date Last Done Comments [...] Procedure Name Priority Date/Time Associated Diagnosis Comments [facility] Routine 01/01/2025 3:27 PM EST Chronic hypertension during , antepartum Dichorionic diamniotic twin , antepartum [facility] Routine 11/28/2024 3:05 PM EDT Chronic hypertension during , antepartum Dichorionic diamniotic twin , antepartum [facility] Routine 10/31/2024 1:57 PM EDT Antepartum multigravida of advanced maternal age Dichorionic diamniotic twin , antepartum Family history of congenital anomaly , unspecified gestational age Chronic hypertension during , antepartum from Last 3 Months Results * [facility] (01/01/2025 3:27 PM EST) Only the most recent of3 resultswithin the time period is included. Anatomical Region Laterality Modality Ultrasound 01/01/2025 2:55 PM EST Narrative 01/02/2025 7:32 PM EST PAT NAME: ROXANA NIETO [facility] REC#: [id number] DA: [id number] PAT GEND: F PAT TYPE: O EXAM AWILDA: [id number] REF PHYS KAYLI CEDENO Comparison Studies The [...] EFW (oz) 11 oz EFW by: Hadlock (QER-EO-YA-FL) Extended Cav. septi pel. tr 7.1 mm Boilermaker Mechanic 6.4 mm CM 6.4 mm 42% Nicolaides [...] EFW (oz) 14 oz EFW by: Hadlock (IID-BA-EA-FL) Extended Cav. septi pel. tr 6.4 mm Boilermaker Mechanic 6.8 mm CM 8.2 mm 87% Nicolaides [...] Heart / Thorax 3-vessel view: Appears normal 7-zzmbnv-jylqjfs view: Appears normal Cord insertion: Appears normal [...] doppler normal x 2 Coding ======= Description: 75289-20 Follow Up Ultrasound Description: 30680-59-15 Follow up Ultrasound additional fetus Pony Ride Attendant: RT Geoff Hines , [facility] Physician: Radha Burnett MD, FACOG Electronically signed by: Radha Burnett MD, FACOG at: 19:32 Procedure Note Radah Burnett MD - 01/02/2025 PAT NAME: ROXANA NIETO [facility] REC#: [id number] DA: [id number] PAT GEND: F PAT TYPE: O EXAM AWILDA: [id number] REF PHYS KAYLI CEDENO Comparison Studies The findings of this study are compared to the prior ultrasound studydated 11/28/24 Patient Status Outpatient Indication ======== Di/Di twin . AMA. MO BMI 46. CHTN. Previous c/s x 3. H/Opreeclampsia. H/O abruption. 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 Maternal Assessment Mfcwnm729 cm Height (ft)5 ft Height (in)9 in Mtgend612 kg Weight (lb)305 lb BMI45.04 kg/m Method [...] Hadlock Femur52.2 mm 27w 6d 34% Hadlock Pcycxlu54.4 mm 29w 4d 87% Nyla HC / AC1.09 EFW1,207 g 28w 0d 55% Hadlock EFW discordance7.4 % EFW (lb)2 lb EFW (oz)11 oz EFW by:Hadlock (FND-IR-PT-FL) Extended Cav. septi pel. tr7.1 mm Vp6.4 mm CM6.4 mm 42% Nicolaides Head / Face / Neck Cephalic index0.71 <1% Nicolaides Extremities / Bony Struc FL / BPD0.76 FL / HC0.20 FL / AC0.21 Other Structures XCW197 bpm Biometry Standard BPD71.2 mm 28w 4d 63% Hadlock OFD91.8 mm 29w 4d 90% Nyla HC260.5 mm 28w 2d 34% Hadlock Cerebellum tr37.0 mm 30w 3d 99% Hill AC252.7 mm 29w 3d 86% Hadlock Femur53.3 mm 28w 2d 48% Hadlock Yrsskle35.5 mm 30w 0d 94% Nyla HC / AC1.03 EFW1,303 g 28w 4d 77% Hadlock EFW discordance7.4 % EFW (lb)2 lb EFW (oz)14 oz EFW by:Hadlock (VDT-ZI-RN-FL) Extended Cav. septi pel. tr6.4 mm Vp6.8 mm CM8.2 mm 87% Nicolaides Head / Face / Neck Cephalic index0.78 36% Nicolaides Extremities / Bony Struc FL / BPD0.75 FL / HC0.20 FL / AC0.21 Other Structures ROI742 bpm General Evaluation Cardiac activity present. FHR [...] normal Heart / Thorax 3-vessel view:Appears normal 3-ehvrdt-sefmodz view:Appears normal Cord insertion:Appears normal Stomach:Appears normal [...] UA doppler normal x 2 Coding ======= Description:18935-74 Follow Up Ultrasound Description:45325-22-20 Follow up Ultrasound additional fetus Pony Ride Attendant: Taryn Hernandez RT R , [facility] Physician: Radha Burnett MD, FACOG Electronically signed by: Radha Burnett MD, FACOG at: 1119:32 us David Taylor MD G US ORDERABLES Final Result from Last 3 Months Insurance [employer] MEDICAID [place] Care Teams Automobile Detailer Relationship Specialty Start Date End Date Provider, No Known [facility] [place] [address] PCP - General 08/10/24
--- OUTSIDE RECORDS SUMMARY | 2025-01-16 15:30 | XMS_ITS | Clinical Summary ---
Author Organization Healthcare Address [address] [place] [address] Care Team Providers Care Fisheries Officer Name Role Phone Pcp, No Primary Care [...] testing 4 Active Lancets (OneTouch Delica Plus Tawnnc29O) [facility] USE TO [facility] 4 TIMES A [...] by mouth every 6 (six) hours. Under [place] law, monthly prescriptions (30 days) can be [...] How often do you attend chur or shinto services? More than 4 times per year 08/16/2023 Do you belong to any clubs o r organizations such as scientology groups, unions, fraternal or athletic groups, or [...] Recorded Patient Health Questionnaire-2 Score 0 02/03/2024 [facility] of Occupat ional Health - Occupational [...] place to sleep or slept in a care home (including now)? No 08/16/2023 [place] Depression Scale Answer Date Recorded [place] Depression Scale Total 6 12/07/2022 The thought [...] were you homeless or living in a care home (including now)? No 02/24/2024 Utilities Answer [...] - 3-dose SCDM series) 2012 [facility]-HPV/Cotest 11/23/2015 WJL-AAITH-18 Vaccine (1 - season) 2024 [facility]-Influenza Vaccine (#1) 2024 [...] ORDERABLES Final Resu lt Performing Organization Address City/[facility] Co de Phone Number [facility] [address] [place] [address] * (ABNORMAL) Hepatitis C Antibody (07/23/2023 8:37 AM EDT) Hepatitis C Antibody Positive( A) Negative 07/23/2023 2:24 PM EDT [facility] Comment:This specimen is sarah ng sent for confirmation by RT-PCR. Blood Venous blood specimen / Unknown Venipuncture / Unknown 07/23/2023 8:37 AM EDT 07/23/2023 12:38 PM EDT Result Hoda Rojas MD LAB BLOOD ORDERABLES Final Resu lt Performing Organization Address City/[facility]/ZIP Co de Phone Number [facility] [address] [place] [address] from Last 3 Months or Most Recently Relevant to Health Maintenance Additional Health Concerns Active Problems Noted Date Diagnosed Date CPM S22 PP LABOR (OBSTETRICS) 08/16/2023 Insurance [facility] MEDICAID Advance Directives * Full Code (Latest Code Status on File) Date Activated Date Inactivated Comments 02/15/2024 3:52 PM 02/18/2024 5:18 PM Question Answer Comments Patient has decision-making capacity? Yes Care Teams Fisheries Officer Relationship Specialty Start Date End Date Pcp, No [address] [place] [address] PCP - General Family Medicine 09/21/23
[2025-01-16 15:50] LABS: Hematocrit 39.3 % (37.0-47.0); Hemoglobin 13.4 g/dL (12.2-16.2); Immature Granulocytes % 0.9 %; Mean Corpuscular HGB Conc 34.1 g/dL (31.8-35.4); Mean Corpuscular Hemoglobin 30.1 pg (27.0-31.2); Mean Corpuscular Volume 88.3 fl (81-99); Nucleated Red Blood Cells % 0 %; Platelet Count 245 K/mm3 (142-424); Red Blood Count 4.45 M/mm3 (4.20-5.40); Red Cell Distribution Width-SD 45.0 fL; White Blood Count 9.3 K/mm3 (4.8-10.8)
[2025-01-16 16:43] LABS: Chloride 103 mmol/L (98-107)
[2025-01-16 16:44] LABS: Albumin Level 3.4 g/dl (3.5-5.0); Potassium 3.9 mmoL/L (3.5-5.1); Sodium 136 mmol/L (136-145)
[2025-01-16 16:46] LABS: Anion Gap 13.9 mEq/L (5-15); Blood Urea Nitrogen 4 mg/dl (7-17); Carbon Dioxide 23 mmol/L (22.0-30.0); Creatinine,Serum 0.50 mg/dl (0.52-1.04); Estimated Glomerular Filt Rate 137 ml/min (>60); GFR (African American) 166 ML/MIN (>60)
[2025-01-16 16:47] LABS: Alanine Aminotransferase 48 U/L (12-78); Albumin/Globulin Ratio 1.2 (1.1-1.8); Alkaline Phosphatase 154 U/L (38-126); Aspartate Amino Transferase 40 U/L (14-36); Bilirubin,Total 0.5 mg/dl (0.2-1.3); Calcium 9.5 mg/dl (8.4-10.2); Globulin 2.9 g/dL (1.3-3.2); Glucose 99 mg/dl (74-100); Total Protein,Serum 6.3 g/dl (6.3-8.2); Uric Acid 6.0 mg/dl (2.5-6.2)
== END 2025-01-16 23:59 | disposition home or self-care (01) ==
LOC: LAB 15:24
PROVIDERS: PCP Obstetrics & Gynecology; Visit Provider Obstetrics & Gynecology
DX: O10.919 Unspecified pre-existing hypertension complicating pregnancy, unspecified trimester (principal); O09.299 Supervision of pregnancy with other poor reproductive or obstetric history, unspecified trimester; Z3A.00 Weeks of gestation of pregnancy not specified
CPT/HCPCS: 36415; 80053; 84550; 85025

== ENCOUNTER 2025-01-23 12:53 | Outpatient (CLI) | payer MEDICAID, SELFPAY ==
--- OUTSIDE RECORDS SUMMARY | 2024-11-28 13:12 | XMS_ITS | Encounter Summary ---
[facility] Address [address] [place] [address] Care Team Providers Care Gas Plumber Name Role Phone Provider, No Known Primary Care Provider Unavail able Reason for Visit * Diagnostic Imaging (Routine) - Authorized Specialty Diagnoses / Procedures Referred By Contmarlen t Referred To Contact Radiology Diagnoses Chronic hypertension during , antepartum Dichorionic diamniotic twin , antepartum Procedures [facility] Taylor, David Pearl MD [address] [place] [address] Phone: tel: fax: [facility] US PER DIAG CTR [address] [place] [address] Phone: tel: Referral ID Status Reason Start Date Expiration Date V isits Requested Visits Authorized [id number] Authorized 10/31/2024 01/30/2026 4 4 Encounter Details Date Type Department Care Team (Latest Contact Info) Description 11/28/2024 2:12 PM EDT - 11/28/2024 11:59 PM EDT Hospital Encounter [facility] US PER DIAG CTR [address] [place] [address] Kayli Cedeno, [address] [facility] [address] [place] [address] Discharge Disposition: Home or Self Care Social [...] Description 01/29/2025 3:15 PM EST Office Visit [facility] [address] [place] [address] 01/29/2025 3:15 PM EST Appointment [facility] DIAG [facility] [address] [place] [address] documented as of this encounter Procedures Procedure Name Priority Date/Time Associated Diagnosis Comments [facility] Routine 11/28/2024 3:05 PM EDT Chronic hypertension during , antepartum Dichorionic diamniotic twin , antepartum documented in this encounter Results * [facility] (11/28/2024 3:05 PM EDT) Anatomical Region Laterality Modality Ultrasound 11/28/2024 2:17 PM EDT Narrative 11/28/2024 3:07 PM EDT PAT NAME: ROXANA NIETO MED REC#: [id number] DA: [id number] PAT GEND: F PAT TYPE: O EXAM AWILDA: [id number] REF PHYS KAYLI CEDENO Comparison Studies The [...] EFW (oz) 7 oz EFW by: Hadlock (DBN-CA-[place]-FL) Extended Cav. septi pel. tr 6.4 mm Marine Engineer Cpvec 7.8 mm CM 5.5 mm 44% Nicolaides [...] EFW (oz) 5 oz EFW by: Hadlock (VAW-NO-UC-FL) Extended Cav. septi pel. tr 7.1 mm Marine Engineer Cpvec 6.2 mm CM 6.5 mm 74% Nicolaides [...] Heart / Thorax 3-vessel view: Appears normal 3-xiuwpv-pyypzne view: Appears normal Cord insertion: Normal Stomach: [...] IVC: Appears Normal 3-vessel view: not examined 6-zzjnlp-xflixss view: not examined Cord insertion: Appears normal [...] here in 4 weeks. Coding ====== Description: 03889-59 Follow Up Ultrasound Description: 54944-93-98 Follow up Ultrasound additional fetus Blender Operator: RT Geoff Hines , [facility] Physician: Arturo Daniesl MD, FACOG Electronically signed by: Arturo Daniels MD, FACOG at: 15:07 Procedure Note Wayne Daniels MD - 11/28/2024 PAT NAME: ROXANA NIETO MED REC#: [id number] DA: [id number] PAT GEND: F PAT TYPE: O EXAM AWILDA: [id number] REF PHYS KAYLI CEDENO Comparison Studies The findings of this study are compared to the prior ultrasound studydated 10/31/24 Patient Status Outpatient Indication ======== Di/Di twin . AMA. MO BMI 46. CHTN. Previous c/s x 3. H/Opreeclampsia. H/O abruption. 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 Maternal Assessment Gxkiup798 cm Height (ft)5 ft Height (in)9 in Dpfswc531 kg Weight (lb)311 lb BMI45.93 kg/m Method ======= Transabdominal ultrasound examination. View: Limited by patient bodyhabitus ========= Twin . Dichorionic-diamniotic. Number of fetuses: 2 Dating ====== Method of dating:based on stated BONNIE GA by prior zskuofrftq15 w + 0 d BONNIE by prior [...] GA23 w + 0 d Assigned BONNIE:03/27/2025 d Biometry Standard BPD57.2 mm 23w 4d 65% Hadlock OFD81.5 mm 26w 4d >99% Nyla HC223.4 mm 24w 3d 85% Hadlock Cerebellum tr28.5 mm 25w 1d >99% Hill AC192.8 mm 24w 0d 73% Hadlock Femur42.5 mm 23w 6d 68% Hadlock Bscqldb72.6 mm 25w 1d 93% Nyla HC / AC1.16 SNQ360 g 23w 5d 85% Hadlock EFW discordance5.8 % EFW (lb)1 lb EFW (oz)7 oz EFW by:Hadlock (WSU-LT-XS-FL) Extended Cav. septi pel. tr6.4 mm Vp7.8 mm CM5.5 mm 44% Nicolaides Head / Face / Neck Cephalic index0.70 <1% Nicolaides Extremities / Bony Struc FL / BPD0.74 FL / HC0.19 FL / AC0.22 Other Structures GGK361 bpm Biometry Standard BPD56.8 mm 23w 3d 60% Hadlock OFD80.0 mm 26w 0d >99% Nyla HC220.0 mm 24w 0d 76% Hadlock Cerebellum tr26.2 mm 23w 4d 93% Hill AC188.6 mm 23w 4d 62% Hadlock Femur41.4 mm 23w 3d 54% Hadlock Xpzqeif57.9 mm 24w 6d 88% Nyla HC / AC1.17 KWL145 g 23w 3d 70% Hadlock EFW discordance5.8 % EFW (lb)1 lb EFW (oz)5 oz EFW by:Hadlock (TDQ-UZ-HW-FL) Extended Cav. septi pel. tr7.1 mm Vp6.2 mm CM6.5 mm 74% Nicolaides Head / Face / Neck Cephalic index0.71 1% Nicolaides Extremities / Bony Struc FL / BPD0.73 FL / HC0.19 FL / AC0.22 Other Structures IOA273 bpm General Evaluation Cardiac activity present. FHR [...] normal Heart / Thorax 3-vessel view:Appears normal 2-rhxunc-anhnwxj view:Appears normal Cord insertion:Normal Stomach:Appears normal Kidneys:Appears [...] SVC:Appears Normal IVC:Appears Normal 3-vessel view:not examined 9-aealea-nsavwow view:not examined Cord insertion:Appears normal Stomach:Appears normal Kidneys:Appears normal Bladder:Appears normal Gender:male Wants to know gender:yes Maternal Structures Uterus / Cervix Cervix:Visualized Approach:Transabdominal Cervical eisidv07.0 mm Doppler Arterial Umbilical A PI0.94 9% [...] scheduled here in 4 weeks. Coding ====== Description:69565-94 Follow Up Ultrasound Description:23481-66-89 Follow up Ultrasound additional fetus Blender Operator: RT Geoff Hines , [facility] Physician: Arturo Daniels MD, FACOG Electronically signed by: Arturo Daniels MD, FACOG at: 15:07 us David Taylor MD IMG US ORDERABLES Final Result documented in this encounter Visit Diagnoses Not on filedocumented in this encounter Care Teams Gas Plumber Relationship Specialty Start Date End Date Provider, No Known [facility] [place] [address] PCP - General 08/10/24 documented as of this encounter
--- OUTSIDE RECORDS SUMMARY | 2024-11-28 13:15 | XMS_ITS | Encounter Summary ---
Author Organization [facility] Address [address] [place] [address] Care Team Providers Care Cnc Machinist 2Nd Shift Name Role Phone Provider, No Known Primary Care Provider Unavail able Encounter Details Date Type Department Care Team (Late st Contact Info) Description 11/28/2024 2:15 PM EDT Office Visit [facility] MATERNAL MEDICINE [address] [facility] [address] [place] [phone] Wayne Daniels MD [address] [facility] [address] [place] [address] Dichorionic diamniotic twin , antepartum (Primary Dx); [...] Orders: - [facility]; Future - [facility]; Future 2. Morbid obesity with BMI of 45.0-49.9, adult - [facility]; Future - [facility]; Future 3. Chronic hypertension during [...] Orders: - [facility]; Future - [facility]; Future 4. Family history of congenital anomaly - [facility]; Future - [facility]; Future 5. 23 weeks gestation of - [facility]; Future - [facility]; Future 6. Antepartum multigravida of advanced maternal age - [facility]; Future - [facility]; Future Follow Up Return in [...] or CVS. Wayne Daniels MD Maternal Medicine, [facility] 11/28/2024 documented in this encounter Plan of Treatment Upcoming Encounters Date Type Department Care Team (Late st Contact Info) Description 01/29/2025 3:15 PM EST Office Visit [facility] MATERNAL MEDICINE [address] [facility] [address] [place] [address] 01/29/2025 3:15 PM EST Appointment [facility] [address] [place] [address] documented as of this encounter Visit Diagnoses Diagnosis Dichorionic diamniotic twin , antepartum- Primary Morbid obesity with BMI of 45.0-49.9, adult Chronic hypertension during , antepartum Family history of congenital anomaly Family history of congenital anomalies 23 weeks gestation of Antepartum multigravida of advanced maternal age documented in this encounter Care Teams Cnc Machinist 2Nd Shift Relationship Specialty Start Date End Date Provider, [place] [address] PCP - General 08/10/24 documented as of this encounter
--- OUTSIDE RECORDS SUMMARY | 2025-01-01 14:31 | XMS_ITS | Encounter Summary ---
[facility] Address [address] [place] [address] Care Team Providers Care Medical Office Coordinator Name Role Phone Provider, No Known Primary Care Provider Unavail able Reason for Visit * Diagnostic Imaging (Routine) - Authorized Specialty Diagnoses / Procedures Referred By Contmarlen t Referred To Contact Radiology Diagnoses Chronic hypertension during , antepartum Dichorionic diamniotic twin , antepartum Procedures [facility] Taylor, David Pearl MD [address] [place] [address] Phone: tel: fax: [facility] US PER DIAG CTR [address] [place] [address] Phone: tel: Referral ID Status Reason Start Date Expiration Date V isits Requested Visits Authorized [id number] Authorized 10/31/2024 01/30/2026 4 4 Encounter Details Date Type Department Care Team (Latest Contact Info) Description 01/01/2025 2:31 PM EST - 01/01/2025 11:59 PM EST Hospital Encounter [facility] US PER DIAG CTR [address] [place] [address] Kayli Cedeno, [address] [place] [address] [address] [place] [address] Discharge Disposition: Home or Self Care Social [...] Description 01/29/2025 3:15 PM EST Office Visit [facility] MAT[facility]IC[facility] [address] [place] [address] 01/29/2025 3:15 PM EST Appointment [facility] US PER DIAG CTR [address] [place] [address] documented as of this encounter Procedures Procedure Name Priority Date/Time Associated Diagnosis Comments [facility] Routine 01/01/2025 3:27 PM EST Chronic hypertension during , antepartum Dichorionic diamniotic twin , antepartum documented in this encounter Results * [facility] (01/01/2025 3:27 PM EST) Anatomical Region Laterality Modality Ultrasound 01/01/2025 2:55 PM EST Narrative 01/02/2025 7:32 PM EST PAT NAME: ROXANA NIETO [facility] REC#: [id number] DA: [id number] PAT GEND: F PAT TYPE: O EXAM AWILDA: [id number] REF PHYS KAYLI CEDENO Comparison Studies The [...] EFW (oz) 11 oz EFW by: Hadlock (HEQ-RP-BQ-FL) Extended Cav. septi pel. tr 7.1 mm Clinical Haematologist 6.4 mm CM 6.4 mm 42% Nicolaides [...] EFW (oz) 14 oz EFW by: Hadlock (YOR-QF-PS-FL) Extended Cav. septi pel. tr 6.4 mm Clinical Haematologist 6.8 mm CM 8.2 mm 87% Nicolaides [...] Heart / Thorax 3-vessel view: Appears normal 7-obpjue-zqynfde view: Appears normal Cord insertion: Appears normal [...] doppler normal x 2 Coding ======= Description: 23548-12 Follow Up Ultrasound Description: 03621-76-24 Follow up Ultrasound additional fetus Shoe Parts Caser: RT Geoff Hines , [facility] Physician: Radha Burnett MD, FACOG Electronically signed by: Radha Burnett MD, FACOG at: 19:32 Procedure Note Radha Burnett MD - 01/02/2025 PAT NAME: ROXANA NIETO MED REC#: [id number] DA: [id number] PAT GEND: F PAT TYPE: O EXAM AWILDA: [id number] REF PHYS KAYLI CEDENO Comparison Studies The findings of this study are compared to the prior ultrasound studydated 11/28/24 Patient Status Outpatient Indication ======== Di/Di twin . AMA. MO BMI 46. CHTN. Previous c/s x 3. H/Opreeclampsia. H/O abruption. 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 Maternal Assessment Ezkxxp869 cm Height (ft)5 ft Height (in)9 in Aibufq769 kg Weight (lb)305 lb BMI45.04 kg/m Method ======= Transabdominal ultrasound examination. View: limited by multiplegestation. Limited by patient body habitus ========= Twin . Dichorionic-diamniotic. Number of fetuses: 2 Dating ====== Method of dating:based on stated BONNIE GA by prior jjwetwosdw26 w + 6 d BONNIE by prior [...] GA27 w + 6 d Assigned BONNIE:03/27/2025 [id number] d Biometry Standard BPD68.8 mm 27w 5d 32% Hadlock OFD97.0 mm 31w 2d >99% Nyla HC266.3 mm 29w 0d 56% Hadlock Cerebellum tr37.1 mm 30w 4d 99% Hill AC243.3 mm 28w 4d 65% Hadlock Femur52.2 mm 27w 6d 34% Hadlock Otrclyu95.4 mm 29w 4d 87% Nyla HC / AC1.09 EFW1,207 g 28w 0d 55% Hadlock EFW discordance7.4 % EFW (lb)2 lb EFW (oz)11 oz EFW by:Hadlock (XFX-KV-YX-FL) Extended Cav. septi pel. tr7.1 mm Vp6.4 mm CM6.4 mm 42% Nicolaides Head / Face / Neck Cephalic index0.71 <1% Nicolaides Extremities / Bony Struc FL / BPD0.76 FL / HC0.20 FL / AC0.21 Other Structures VZQ259 bpm Biometry Standard BPD71.2 mm 28w 4d 63% Hadlock OFD91.8 mm 29w 4d 90% Nyla HC260.5 mm 28w 2d 34% Hadlock Cerebellum tr37.0 mm 30w 3d 99% Hill AC252.7 mm 29w 3d 86% Hadlock Femur53.3 mm 28w 2d 48% Hadlock Mtzimvd14.5 mm 30w 0d 94% Nyla HC / AC1.03 EFW1,303 g 28w 4d 77% Hadlock EFW discordance7.4 % EFW (lb)2 lb EFW (oz)14 oz EFW by:Hadlock (IJR-OU-QS-FL) Extended Cav. septi pel. tr6.4 mm Vp6.8 mm CM8.2 mm 87% Nicolaides Head / Face / Neck Cephalic index0.78 36% Nicolaides Extremities / Bony Struc FL / BPD0.75 FL / HC0.20 FL / AC0.21 Other Structures BVQ949 bpm General Evaluation Cardiac activity present. FHR [...] normal Heart / Thorax 3-vessel view:Appears normal 9-qkpnxt-xayxqwg view:Appears normal Cord insertion:Appears normal Stomach:Appears normal [...] UA doppler normal x 2 Coding ======= Description:27267-90 Follow Up Ultrasound Description:88639-83-23 Follow up Ultrasound additional fetus Shoe Parts Caser: RT Geoff Hines , [facility] Physician: Radha Burnett MD, FACOG Electronically signed by: Radha Burnett MD, FACOG at: 9:32 us David Taylor MD IMG US ORDERABLES Final Result documented in this encounter Visit Diagnoses Not on filedocumented in this encounter Care Teams Medical Office Coordinator Relationship Specialty Start Date End Date Provider, [place] [address] PCP - General 08/10/24 documented as of this encounter
--- OUTSIDE RECORDS SUMMARY | 2025-01-01 15:15 | XMS_ITS | Encounter Summary ---
Author Organization [facility] Address [address] [place] [address] Care Team Providers Care Chinchilla Machine Operator Name Role Phone Provider, No Known Primary Care Provider Unavail able Reason for Visit * Reason Comments Di/Di twins; MO; AMA; CHTN; Prev C/W crate tier niosynostosis; Prev Encounter Details Date Type Department Care Team (Late st Contact Info) Description 01/01/2025 3:15 PM EST Office Visit [facility] MATERNAL MEDICINE [address] [phone] Radha Burnett MD [address] [place] [address] Dichorionic diamniotic twin , antepartum (Primary Dx); [...] under imaging tab of patient chart in [facility] (Viewpoint report). Radha Burnett MD documented in this encounter Plan of Treatment Upcoming Encounters Date Type Department Care Team (Late st Contact Info) Description 01/29/2025 3:15 PM EST Office Visit [facility] MATERNAL MEDICINE [address] [facility] [address] [place] [address] 01/29/2025 3:15 PM EST Appointment [facility] US PER DIAG CTR [address] [place] [address] documented as of this encounter Visit Diagnoses Diagnosis Dichorionic diamniotic twin , antepartum- Primary Chronic hypertension during , antepartum documented in this encounter Care Teams Chinchilla Machine Operator Relationship Specialty Start Date End Date Provider, [place] [address] PCP - General 08/10/24 documented as of this encounter
--- OUTSIDE RECORDS SUMMARY | 2025-01-23 12:57 | XMS_ITS | Encounter Summary ---
Author Organization [facility] Address [address] [place] [address] Care Team Providers Care Plant Health Manager Name Role Phone Provider, No Known [...] Description 01/29/2025 3:15 PM EST Office Visit [facility] MEDICAL [facility] MATERNAL MEDICINE [address] [place] [address] 01/29/2025 3:15 PM EST Appointment [facility] [address] [place] [address] documented as of this encounter Visit Diagnoses Not on filedocumented in this encounter Care Teams Plant Health Manager Relationship Specialty Start Date End Date Provider, [place] [address] PCP - General 08/10/24 documented as of this encounter
--- OUTSIDE RECORDS SUMMARY | 2025-01-23 12:57 | XMS_ITS | Clinical Summary ---
Author Organization [facility] Address [address] [place] [address] Care Team Providers Care Applied Science And Technologies Dean Name Role Phone Provider, No Known Primary [...] older obese women and in women of -Mauritian descent. Preexisting hypertension is a recognized risk [...] 3:15 PM EST Office Visit [facility] MATERNAL MEDICINE [address] [facility] [address] [place] [address] Radha Burnett MD Dichorionic diamniotic twin , antepartum (Primary Dx); Chronic hypertension during , antepartum 01/01/2025 2:31 PM EST - 01/01/2025 11:59 PM EST Hospital Encounter [facility] [address] [place] [address] Kayli Cedeno, DO Discharge Disposition: Home or Self Care 01/01/2025 Travel 11/28/2024 2:15 PM EDT Office Visit [facility] MED[facility] [address] [facility] [address] [place], [place] [address] Wayne Daniels MD Dichorionic diamniotic twin , antepartum (Primary Dx); Morbid obesity with BMI of 45.0-49.9, adult; Chronic hypertension during , antepartum; Family history of congenital anomaly; 23 weeks gestation of ; Antepartum multigravida of advanced maternal age 1011/28/2024 2:12 PM EDT - 11/28/2024 11:59 PM EDT Hospital Encounter [facility] [address] [place] [address] Kayli Cedeno, DO Discharge Disposition: Home or Self Care 11/28/2024 Travel 10/31/2024 1:15 PM EDT Office Visit [facility] MAT[facility]NAL MEDICINE [address] [facility] [place] [place] [address] David Taylor MD Chronic hypertension during , antepartum (Primary Dx); Dichorionic diamniotic twin , antepartum 10/31/2024 12:46 PM EDT - 10/31/2024 11:59 PM EDT Hospital Encounter [facility] [address] [place] [address] Wayne Daniels MD Antepartum multigravida [...] 01/29/2025 3:15 PM EST Office Visit [facility] MATERNAL MEDICINE [address] [facility] [address] [place] [address] 01/29/2025 3:15 PM EST Appointment [facility] [address] [place] [address] Health Maintenance Due Date Last Done Comments Annual Gynecologic Pelvic and Breast Exam 1985 PAP SMEAR 2006 ANNUAL PHYSICAL 08/10/2024 RSV Vaccine - Adults (1 - Risk 1-dose series) 01/30/2025 TDAP/TD VACCINES (4 - Td or Tdap) 12/22/2033 12/23/2023, 09/07/2022, 02/17/2019 HEPATITIS C SCREENING Completed 07/23/2023 , 07/23/2023, 04/16/2020, Additional history exists INFLUENZA VACCINE Completed 01/09/2025, , 02/17/2019 Pneumococcal Vaccine 0-49 Aged Out No longer eligible based on patient's age to complete this topic Procedures Procedure Name Priority Date/Time Associated Diagnosis Comments [facility] Routine 01/01/2025 3:27 PM EST Chronic hypertension during , antepartum Dichorionic diamniotic twin , antepartum [facility] Routine 11/28/2024 3:05 PM EDT Chronic hypertension during , antepartum Dichorionic diamniotic twin , antepartum [facility] Routine 10/31/2024 1:57 PM EDT Antepartum multigravida of advanced maternal age Dichorionic diamniotic twin , antepartum Family history of congenital anomaly , unspecified gestational age Chronic hypertension during , antepartum from Last 3 Months Results * [facility] [place] (01/01/2025 3:27 PM EST) Only the most recent of3 resultswithin the time period is included. Anatomical Region Laterality Modality Ultrasound 01/01/2025 2:55 PM EST Narrative 01/02/2025 7:32 PM EST PAT NAME: ROXANA NIETO [facility] REC#: [id number] DA: [id number] PAT GEND: F PAT TYPE: O EXAM AWILDA: [id number] REF PHYS KAYLI CEDENO Comparison Studies The [...] EFW (oz) 11 oz EFW by: Hadlock (WKG-ST-WO-FL) Extended Cav. septi pel. tr 7.1 mm Silhouette Artist 6.4 mm CM 6.4 mm 42% Nicolaides [...] EFW (oz) 14 oz EFW by: Hadlock (AYL-FN-ZJ-FL) Extended Cav. septi pel. tr 6.4 mm Silhouette Artist 6.8 mm CM 8.2 mm 87% Nicolaides [...] Heart / Thorax 3-vessel view: Appears normal 5-zyohhb-ukcnyhp view: Appears normal Cord insertion: Appears normal [...] doppler normal x 2 Coding ======= Description: 63309-44 Follow Up Ultrasound Description: 55355-80-76 Follow up Ultrasound additional fetus Jig Fitter: RT Geoff Hines , [facility] Physician: Radha Burnett MD, FACOG Electronically signed by: Radha Burnett MD, FACOG at: 19:32 Procedure Note Radha Burnett MD - 01/02/2025 PAT NAME: ROXANA NIETO [facility] REC#: [id number] DA: [id number] PAT GEND: F PAT TYPE: O EXAM AWILDA: [id number] REF PHYS KAYLI CEDENO Comparison Studies The findings of this study are compared to the prior ultrasound studydated 11/28/24 Patient Status Outpatient Indication ======== Di/Di twin . AMA. MO BMI 46. CHTN. Previous c/s x 3. H/Opreeclampsia. H/O abruption. 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 Maternal Assessment Rusuxx170 cm Height (ft)5 ft Height (in)9 in Kvdxep803 kg Weight (lb)305 lb BMI45.04 kg/m Method ======= Transabdominal ultrasound examination. View: limited by multiplegestation. Limited by patient body habitus ========= Twin . Dichorionic-diamniotic. Number of fetuses: 2 Dating ====== Method of dating:based on stated BONNIE GA by prior hrvhpfiqgy93 w + 6 d BONNIE by prior [...] GA27 w + 6 d Assigned BONNIE:03/27/[birth year]25 ikabad030 d Biometry Standard BPD68.8 mm 27w 5d 32% Hadlock OFD97.0 mm 31w 2d >99% Nyla HC266.3 mm 29w 0d 56% Hadlock Cerebellum tr37.1 mm 30w 4d 99% Hill AC243.3 mm 28w 4d 65% Hadlock Femur52.2 mm 27w 6d 34% Hadlock Bvprywb60.4 mm 29w 4d 87% Nyla HC / AC1.09 EFW1,207 g 28w 0d 55% Hadlock EFW discordance7.4 % EFW (lb)2 lb EFW (oz)11 oz EFW by:Hadlock (ZJU-DQ-GF-FL) Extended Cav. septi pel. tr7.1 mm Vp6.4 mm CM6.4 mm 42% Nicolaides Head / Face / Neck Cephalic index0.71 <1% Nicolaides Extremities / Bony Struc FL / BPD0.76 FL / HC0.20 FL / AC0.21 Other Structures [id number] bpm Biometry Standard BPD71.2 mm 28w 4d 63% Hadlock OFD91.8 mm 29w 4d 90% Nyla HC260.5 mm 28w 2d 34% Hadlock Cerebellum tr37.0 mm 30w 3d 99% Hill AC252.7 mm 29w 3d 86% Hadlock Femur53.3 mm 28w 2d 48% Hadlock Fypdjls06.5 mm 30w 0d 94% Nyla HC / AC1.03 EFW1,303 g 28w 4d 77% Hadlock EFW discordance7.4 % EFW (lb)2 lb EFW (oz)14 oz EFW by:Hadlock (LJT-HC-AM-FL) Extended Cav. septi pel. tr6.4 mm Vp6.8 mm CM8.2 mm 87% Nicolaides Head / Face / Neck Cephalic index0.78 36% Nicolaides Extremities / Bony Struc FL / BPD0.75 FL / HC0.20 FL / AC0.21 Other Structures YKT003 bpm General Evaluation Cardiac activity present. FHR [...] normal Heart / Thorax 3-vessel view:Appears normal 1-kklmje-nxtjjxi view:Appears normal Cord insertion:Appears normal Stomach:Appears normal [...] UA doppler normal x 2 Coding ======= Description:99727-23 Follow Up Ultrasound Description:67774-47-08 Follow up Ultrasound additional fetus Jig Fitter: Taryn Hernandez RT R , [facility] Physician: Radha Burnett MD, FACOG Electronically signed by: Radha Burnett MD, FACOG at: 1119:32 us David Taylor MD [facility] US ORDERABLES Final Result from Last 3 Months Insurance [employer] [address] Care Teams [employer] Science [employer] Technologies Dean Relationship Specialty Start Date End Date Provider, [place] [address] PCP - General 08/10/24
--- OUTSIDE RECORDS SUMMARY | 2025-01-23 12:58 | XMS_ITS | Clinical Summary ---
Author Organization Healthcare Address [address] [place] [address] Care Team Providers Care Recreation Counselor Name Role Phone Pcp, No Primary Care [...] testing 4 Active Lancets (OneTouch Delica Plus Ygapzj53P) [facility] USE TO TEST 4 TIMES A [...] by mouth every 6 (six) hours. Under [place] law, monthly prescriptions (30 days) can be [...] How often do you attend chur or christian services? More than 4 times per year 08/16/2023 Do you belong to any clubs o r organizations such as shinto groups, unions, fraternal or athletic groups, or [...] Recorded Patient Health Questionnaire-2 Score 0 02/03/2024 [facility] of Occupat ional Health - Occupational Stress [...] place to sleep or slept in a assisted (including now)? No 08/16/2023 [place] Depression Scale Answer Date Recorded [place] Depression Scale Total 6 12/07/2022 The thought [...] were you homeless or living in a assisted (including now)? No 02/24/2024 Utilities Answer Date [...] - 3-dose SCDM series) 2012 [facility]-HPV/Cotest 11/23/2015 [facility]-FLSEY-50 Vaccine (1 - season) 2024 [facility]-Influenza Vaccine [...] ORDERABLES Final Resu lt Performing Organization Address City/[facility] Co de Phone Number [facility] [address] [place] [address] * (ABNORMAL) Hepatitis C Antibody (07/23/2023 8:37 AM EDT) Hepatitis C Antibody Positive( A) Negative 07/23/2023 2:24 PM EDT [facility] Comment:This specimen is sarah ng sent for confirmation by RT-PCR. Blood Venous blood specimen / Unknown Venipuncture / Unknown 07/23/2023 8:37 AM EDT 07/23/2023 12:38 PM EDT Result Hoda Rojas MD LAB BLOOD ORDERABLES Final Resu lt Performing Organization Address City/[facility]/ZIP Co de Phone Number [facility] [address] [place] [address] from Last 3 Months or Most Recently Relevant to Health Maintenance Additional Health Concerns Active Problems Noted Date Diagnosed Date CPM S22 PP LABOR (OBSTETRICS) 08/16/2023 Insurance REPLACED BY [facility] MEDICAID Advance Directives * Full Code (Latest Code Status on File) Date Activated Date Inactivated Comments 02/15/2024 3:52 PM 02/18/2024 5:18 PM Question Answer Comments Patient has decision-making capacity? Yes Care Teams Recreation Counselor Relationship Specialty Start Date End Date Pcp, No [address] [place] [address] PCP - General Family Medicine 09/21/23
--- OUTSIDE RECORDS SUMMARY | 2025-01-23 12:58 | XMS_ITS | Referral Summary ---
Author Organization [employer] ([place], [place], [place], [place], [place]) Address [address] [place] [address] Care Team Providers Care Applied Biology Professor Name Role Phone Unavailable Primary Care Provider Unavailabl e Social History Tobacco Use Types Packs/Day Years Used Date Smoking Tobacco: Never Assessed Comments Unknown Sex and Gender Information Value Date Recorded Sex Assigned at Not on file Legal Sex Female 12:29 PM IT PROJECT MANAGER Gender Identity Not on file Sexual Orientation Not on file Plan of Treatment Upcoming Encounters Date Type Department Care Team (Late st Contact Info) Description 01/30/2025 11:00 AM EST Office Visit [facility] [address] [facility] [address] [place] [address] Yenny Muir MD [address] [facility] [address] [place], [place] [address]
--- OUTSIDE RECORDS SUMMARY | 2025-01-23 12:58 | XMS_ITS | Encounter Summary ---
Author Organization [facility] Address [address] [place] [address] Care Team Providers Care Combine Mechanic Name Role Phone Provider, No Known [...] Description 01/29/2025 3:15 PM EST Office Visit [facility] MATERNAL MEDICINE [address] [place] [address] 01/29/2025 3:15 PM EST Appointment [facility] [address] [place] [address] documented as of this encounter Visit Diagnoses Not on filedocumented in this encounter Care Teams Combine Mechanic Relationship Specialty Start Date End Date Provider, [place] [address] PCP - General 08/10/24 documented as of this encounter
--- OUTSIDE RECORDS SUMMARY | 2025-01-23 12:58 | XMS_ITS | Clinical Summary ---
Author Organization [employer] ([place], [place], [place], [place], [place]) Address [address] [place] [address] Care Team Providers Care Stand Up Forklift Operator Name Role Phone Unavailable Primary Care Provider Unavailabl e Social History Tobacco Use Types Packs/Day Years Used Date Smoking Tobacco: Never Assessed Comments Unknown Sex and Gender Information Value Date Recorded Sex Assigned at Not on file Legal Sex Female 12:29 PM STRAP BUCKLER Gender Identity Not on file Sexual Orientation Not on file Plan of Treatment Upcoming Encounters Date Type Department Care Team (Late st Contact Info) Description 01/30/2025 11:00 AM EST Office Visit [facility] [address] [facility] [address] [place] [address] Yenny Muir MD [address] [facility] [address] [place], [place] [id number] Health Maintenance Due Date Last Done Comments [...]
[2025-01-23 17:13] LABS: Collection Time,Urine 1255 hours; Total Volume,Urine 1200 mL (600-1600)
[2025-01-23 17:19] LABS: Total Protein 24 Hour,Urine 108 mg/24 hr (40-90)
[2025-01-23 17:20] LABS: Creatinine 24 Hour,Urine 1200 mg/24hr (630-2500)
== END 2025-01-23 23:59 | disposition home or self-care (01) ==
LOC: LAB 12:53
PROVIDERS: Visit Provider Obstetrics & Gynecology
DX: O10.919 Unspecified pre-existing hypertension complicating pregnancy, unspecified trimester (principal); O30.009 Twin pregnancy, unspecified number of placenta and unspecified number of amniotic sacs, unspecified trimester; O09.299 Supervision of pregnancy with other poor reproductive or obstetric history, unspecified trimester; O34.219 Maternal care for unspecified type scar from previous cesarean delivery; Z86.32 Personal history of gestational diabetes; Z3A.00 Weeks of gestation of pregnancy not specified
CPT/HCPCS: 82570; 84155

== ENCOUNTER 2025-01-23 14:03 | Outpatient (CLI) | payer MEDICAID, SELFPAY ==
--- OUTSIDE RECORDS SUMMARY | 2024-11-28 13:12 | XMS_ITS | Encounter Summary ---
[facility] Address [address] [place] [address] Care Team Providers Care Diplomatic Interpreter Name Role Phone Provider, No Known Primary Care Provider Unavail able Reason for Visit * Diagnostic Imaging (Routine) - Authorized Specialty Diagnoses / Procedures Referred By Contmarlen t Referred To Contact Radiology Diagnoses Chronic hypertension during , antepartum Dichorionic diamniotic twin , antepartum Procedures [facility] Taylor, David Pearl MD [address] [place] [address] Phone: tel: fax: [facility] [address] [place] [address] Phone: tel: Referral ID Status Reason Start Date Expiration Date V isits Requested Visits Authorized [id number] Authorized 10/31/2024 01/30/2026 4 4 Encounter Details Date Type Department Care Team (Latest Contact Info) Description 11/28/2024 2:12 PM EDT - 11/28/2024 11:59 PM EDT Hospital Encounter [facility] DI[facility] [address] [place] [address] Kayli Cedeno, [address] [facility] [address] [place] [address] Discharge Disposition: Home or Self Care Social [...] Description 01/29/2025 3:15 PM EST Office Visit [facility] [address] [place] [address] 01/29/2025 3:15 PM EST Appointment [facility] [address] [address] documented as of this encounter Procedures Procedure Name Priority Date/Time Associated Diagnosis Comments [facility] Routine 11/28/2024 3:05 PM EDT Chronic hypertension during , antepartum Dichorionic diamniotic twin , antepartum documented in this encounter Results * [facility] (11/28/2024 3:05 PM EDT) Anatomical Region Laterality Modality Ultrasound 11/28/2024 2:17 PM EDT Narrative 11/28/2024 3:07 PM EDT PAT NAME: ROXANA NIETO MED REC#: [id number] DA: [id number] PAT GEND: F PAT TYPE: O EXAM AWILDA: [id number] REF PHYS KAYLI CEDENO Comparison Studies The [...] EFW (oz) 7 oz EFW by: Hadlock (XDK-GF-WE-FL) Extended Cav. septi pel. tr 6.4 mm Workers Compensation Legal Secretary 7.8 mm CM 5.5 mm 44% Nicolaides [...] EFW (oz) 5 oz EFW by: Hadlock (WPL-GA-KL-FL) Extended Cav. septi pel. tr 7.1 mm Workers Compensation Legal Secretary 6.2 mm CM 6.5 mm 74% Nicolaides [...] Heart / Thorax 3-vessel view: Appears normal 7-ktzadj-pfwumfh view: Appears normal Cord insertion: Normal Stomach: [...] IVC: Appears Normal 3-vessel view: not examined 1-xuclgk-gnxzets view: not examined Cord insertion: Appears normal [...] here in 4 weeks. Coding ====== Description: 74378-02 Follow Up Ultrasound Description: 56833-15-36 Follow up Ultrasound additional fetus Lock Fitter: RT Geoff Hines , [facility] Physician: Arturo Daniels MD, FACOG Electronically signed by: Arturo Daniels MD, FACOG at: 15:07 Procedure Note Wayne Daniels MD - 11/28/2024 PAT NAME: ROXANA NIETO MED REC#: [id number] DA: [id number] PAT GEND: F PAT TYPE: O EXAM AWILDA: [id number] REF PHYS KAYLI CEDENO Comparison Studies The findings of this study are compared to the prior ultrasound studydated 10/31/24 Patient Status Outpatient Indication ======== Di/Di twin . AMA. MO BMI 46. CHTN. Previous c/s x 3. H/Opreeclampsia. H/O abruption. 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 Maternal Assessment Vghynq714 cm Height (ft)5 ft Height (in)9 in Ezllgm678 kg Weight (lb)311 lb BMI45.93 kg/m Method ======= Transabdominal ultrasound examination. View: Limited by patient bodyhabitus ========= Twin . Dichorionic-diamniotic. Number of fetuses: 2 Dating ====== Method of dating:based on stated BONNIE GA by prior jqjcifedzm40 w + 0 d BONNIE by prior [...] GA23 w + 0 d Assigned BONNIE:03/[birth year]/2025 gjzexg546 d Biometry Standard BPD57.2 mm 23w 4d 65% Hadlock OFD81.5 mm 26w 4d >99% Nyla HC223.4 mm 24w 3d 85% Hadlock Cerebellum tr28.5 mm 25w 1d >99% Hill AC192.8 mm 24w 0d 73% Hadlock Femur42.5 mm 23w 6d 68% Hadlock Bkpplsk50.6 mm 25w 1d 93% Nyla HC / AC1.16 RBD688 g 23w 5d 85% Hadlock EFW discordance5.8 % EFW (lb)1 lb EFW (oz)7 oz EFW by:Hadlock (WTO-BV-AW-FL) Extended Cav. septi pel. tr6.4 mm Vp7.8 mm CM5.5 mm 44% Nicolaides Head / Face / Neck Cephalic index0.70 <1% Nicolaides Extremities / Bony Struc FL / BPD0.74 FL / HC0.19 FL / AC0.22 Other Structures JBU365 bpm Biometry Standard BPD56.8 mm 23w 3d 60% Hadlock OFD80.0 mm 26w 0d >99% Nyla HC220.0 mm 24w 0d 76% Hadlock Cerebellum tr26.2 mm 23w 4d 93% Hill AC188.6 mm 23w 4d 62% Hadlock Femur41.4 mm 23w 3d 54% Hadlock Hldvlrm84.9 mm 24w 6d 88% Nyla HC / AC1.17 TJK807 g 23w 3d 70% Hadlock EFW discordance5.8 % EFW (lb)1 lb EFW (oz)5 oz EFW by:Hadlock (ACV-RU-JS-FL) Extended Cav. septi pel. tr7.1 mm Vp6.2 mm CM6.5 mm 74% Nicolaides Head / Face / Neck Cephalic index0.71 1% Nicolaides Extremities / Bony Struc FL / BPD0.73 FL / HC0.19 FL / AC0.22 Other Structures AQQ156 bpm General Evaluation Cardiac activity present. FHR [...] normal Heart / Thorax 3-vessel view:Appears normal 1-txxtll-bcpibqu view:Appears normal Cord insertion:Normal Stomach:Appears normal Kidneys:Appears [...] SVC:Appears Normal IVC:Appears Normal 3-vessel view:not examined 9-qgxtvy-npceqmf view:not examined Cord insertion:Appears normal Stomach:Appears normal Kidneys:Appears normal Bladder:Appears normal Gender:male Wants to know gender:yes Maternal Structures Uterus / Cervix Cervix:Visualized Approach:Transabdominal Cervical alwwbd06.0 mm Doppler Arterial Umbilical A PI0.94 9% [...] scheduled here in 4 weeks. Coding ====== Description:41871-73 Follow Up Ultrasound Description:16073-94-66 Follow up Ultrasound additional fetus Lock Fitter: RT Geoff Hines , RUST Physician: Arturo Daniels MD, FACOG Electronically signed by: Arturo Daniels MD, FACOG at: 15:07 us David Taylor MD IMG US ORDERABLES Final Result documented in this encounter Visit Diagnoses Not on filedocumented in this encounter Care Teams Diplomatic Interpreter Relationship Specialty Start Date End Date Provider, No Known [facility] [place] [address] PCP - General 08/10/24 documented as of this encounter
--- OUTSIDE RECORDS SUMMARY | 2024-11-28 13:15 | XMS_ITS | Encounter Summary ---
Author Organization [facility] Address [address] [place] [address] Care Team Providers Care Door To Door Salesperson Name Role Phone Provider, No Known Primary Care Provider Unavail able Encounter Details Date Type Department Care Team (Late st Contact Info) Description 11/28/2024 2:15 PM EDT Office Visit [facility] MATERNAL MEDICINE [address] [facility] [address] [place] [phone] Wayne Daniels MD [address] [facility] [address] [place] [address] Dichorionic diamniotic twin , antepartum (Primary Dx); [...] Orders: - [facility]; Future - [facility]; Future 2. Morbid obesity with BMI of 45.0-49.9, adult - [facility]; Future - [facility]; Future 3. Chronic hypertension during [...] Orders: - [facility]; Future - [facility]; Future 4. Family history of congenital anomaly - [facility]; Future - [facility]; Future 5. 23 weeks gestation of - [facility]; Future - [facility]; Future 6. Antepartum multigravida of advanced maternal age - [facility]; Future - [facility]; Future Follow Up Return in [...] or CVS. Wayne Daniels MD Maternal Medicine, [facility] 11/28/2024 documented in this encounter Plan of Treatment Upcoming Encounters Date Type Department Care Team (Late st Contact Info) Description 01/29/2025 3:15 PM EST Office Visit [facility] MATERNAL MEDICINE [address] [facility] [address] [place] [address] 01/29/2025 3:15 PM EST Appointment [facility] [address] [place] [address] documented as of this encounter Visit Diagnoses Diagnosis Dichorionic diamniotic twin , antepartum- Primary Morbid obesity with BMI of 45.0-49.9, adult Chronic hypertension during , antepartum Family history of congenital anomaly Family history of congenital anomalies 23 weeks gestation of Antepartum multigravida of advanced maternal age documented in this encounter Care Teams Door To Door Salesperson Relationship Specialty Start Date End Date Provider, [place] [address] PCP - General 08/10/24 documented as of this encounter
--- OUTSIDE RECORDS SUMMARY | 2025-01-01 14:31 | XMS_ITS | Encounter Summary ---
[facility] Address [address] [place] [address] Care Team Providers Care Laser Engraver Name Role Phone Provider, No Known Primary Care Provider Unavail able Reason for Visit * Diagnostic Imaging (Routine) - Authorized Specialty Diagnoses / Procedures Referred By Contmarlen t Referred To Contact Radiology Diagnoses Chronic hypertension during , antepartum Dichorionic diamniotic twin , antepartum Procedures [facility] Taylor, David Pearl MD [address] [place] [address] Phone: tel: fax: [facility] US PER DIAG [facility] [address] [place] [address] Phone: tel: Referral ID Status Reason Start Date Expiration Date V isits Requested Visits Authorized [id number] Authorized 10/31/2024 01/30/2026 4 4 Encounter Details Date Type Department Care Team (Latest Contact Info) Description 01/01/2025 2:31 PM EST - 01/01/2025 11:59 PM EST Hospital Encounter [facility] US PER DIAG [facility] [address] [place] [address] Kayli Cedeno, [address] [place] [address] [address] [place] [address] Discharge Disposition: Home or Self Care Social [...] by mouth every night at bedtime. 08/31/2024 metoclopramide (REGLAN) 10 MG tablet Take 1 tablet by mouth 4 (Four) Times a Day Before Meals & at Bedtime As Needed (nausea). NIFEdipine XL (PROCARDIA XL) 30 MG 24 hr tablet Take 1 tablet by mouth Daily. 09/05/2024 Vit-Fe Fumarate-FA ( vitamin 28-0.8) 28-0.8 MG tablet tablet Take 1 tablet by mouth Daily. 02/18/2024 promethazine (PHENERGAN) 12.5 MG tablet Take 1 tablet by mouth Every 6 (Six) Hours As Needed. SUMAtriptan (IMITREX) 25 MG tablet Take 1 tablet by mouth 1 (One) Time. Please see attached for detailed directions 09/07/2024 documented as of this encounter Plan of Treatment Upcoming Encounters Date Type Department Care Team (Late st Contact Info) Description 01/29/2025 3:15 PM EST Office Visit [facility] [address] [place] [address] 01/29/2025 3:15 PM EST Appointment [facility] US PER DIAG [facility] [address] [place] [address] documented as of this encounter Procedures Procedure Name Priority Date/Time Associated Diagnosis Comments [facility] Routine 01/01/2025 3:27 PM EST Chronic hypertension during , antepartum Dichorionic diamniotic twin , antepartum documented in this encounter Results * [facility] (01/01/2025 3:27 PM EST) Anatomical Region Laterality Modality Ultrasound 01/01/2025 2:55 PM EST Narrative 01/02/2025 7:32 PM EST PAT NAME: ROXANA NIETO [facility] REC#: [id number] DA: [id number] PAT GEND: F PAT TYPE: O EXAM AWILDA: [id number] REF PHYS KAYLI CEDENO Comparison Studies The findings of this study are compared to the prior ultrasound study dated 11/28/24 Patient Status Outpatient Indication ======== Di/Di twin . AMA. MO BMI 46. CHTN. Previous c/s x 3. H/O preeclampsia. H/O abruption. 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 Maternal Assessment Height 175 cm Height (ft) 5 ft Height (in) 9 in Weight 138 kg Weight (lb) 305 lb BMI 45.04 kg/m Method ======= Transabdominal ultrasound examination. View: limited by multiple gestation. Limited by patient body habitus ========= Twin . Dichorionic-diamniotic. Number of fetuses: 2 Dating ====== Method of dating: based on stated BONNIE GA by prior assessment 27 w + 6 d BONNIE by prior assessment: 03/27/2025 Ultrasound examination on: 01/01/2025 GA by U/S based upon: AC, BPD, Femur, HC GA by U/S 28 w + 2 d BONNIE by U/S: 03/24/2025 GA by U/S based upon (Fetus 2): AC, BPD, Femur, HC GA by U/S (Fetus 2) 28 w + 5 d BONNIE by U/S (Fetus 2): 03/21/2025 Previous dating: based on stated BONNIE, selected on 11/28/2024 Agreed BONNIE of previous datin03/27/2025 Assigned: based on stated BONNIE, selected on 01/01/2025 Assigned GA 27 w + 6 d Assigned BONNIE: 03/27/2025 length 280 d Biometry Standard BPD 68.8 mm 27w 5d 32% Hadlock OFD 97.0 mm 31w 2d >99% Nyla HC 266.3 mm 29w 0d 56% Hadlock Cerebellum tr 37.1 mm 30w 4d 99% Hill AC 243.3 mm 28w 4d 65% Hadlock Femur 52.2 mm 27w 6d 34% Hadlock Humerus 50.4 mm 29w 4d 87% Nyla HC / AC 1.09 EFW 1,207 g 28w 0d 55% Hadlock EFW discordance 7.4 % EFW (lb) 2 lb EFW (oz) 11 oz EFW by: Hadlock (SLP-UW-EA-FL) Extended Cav. septi pel. tr 7.1 mm Yeast Cake Cutter 6.4 mm CM 6.4 mm 42% Nicolaides Head / Face / Neck Cephalic index 0.71 <1% Nicolaides Extremities / Bony Struc FL / BPD 0.76 FL / HC 0.20 FL / AC 0.21 Other Structures FHR 138 bpm Biometry Standard BPD 71.2 mm 28w 4d 63% Hadlock OFD 91.8 mm 29w 4d 90% Nyla HC 260.5 mm 28w 2d 34% Hadlock Cerebellum tr 37.0 mm 30w 3d 99% Hill AC 252.7 mm 29w 3d 86% Hadlock Femur 53.3 mm 28w 2d 48% Hadlock Humerus 51.5 mm 30w 0d 94% Nyla HC / AC 1.03 EFW 1,303 g 28w 4d 77% Hadlock EFW discordance 7.4 % EFW (lb) 2 lb EFW (oz) 14 oz EFW by: Hadlock (HSV-ZH-GW-FL) Extended Cav. septi pel. tr 6.4 mm Yeast Cake Cutter 6.8 mm CM 8.2 mm 87% Nicolaides Head / Face / Neck Cephalic index 0.78 36% Nicolaides Extremities / Bony Struc FL / BPD 0.75 FL / HC 0.20 FL / AC 0.21 Other Structures FHR 144 bpm General Evaluation Cardiac activity present. FHR 138 bpm. movements present. Presentation breech, maternal left. Placenta Placental site: anterior. Amniotic fluid Amount of AF: normal. MVP 4.9 cm. General Evaluation Cardiac activity present. FHR 144 bpm. movements present. Presentation cephalic, maternal right. Placenta Placental site: anterior. Amniotic fluid Amount of AF: normal. MVP 5.7 cm. Anatomy Cranium: Normal Cavum septi pellucidi: Normal Cerebellum: Normal Cisterna magna: Normal Head / Neck Rt lateral ventricle: Normal Lt lateral ventricle: Normal Cord insertion: Normal Stomach: Appears normal Kidneys: Appears normal Bladder: Appears normal Gender: male Wants to know gender: yes Anatomy Cranium: Normal Cavum septi pellucidi: Normal Cerebellum: Normal Cisterna magna: Normal Head / Neck Rt lateral ventricle: Normal Lt lateral ventricle: Normal Lips: Normal Profile: Nasal Bone Present Nose: not examined Face Palate: not examined 4-chamber view: visualized RVOT view: visualized LVOT view: Appears normal Heart / Thorax 3-vessel view: Appears normal 5-bfzdcz-wvlbddl view: Appears normal Cord insertion: Appears normal Stomach: Appears normal Kidneys: Appears normal Bladder: Appears normal Gender: male Wants to know gender: yes Doppler Arterial Umbilical A PI 0.88 21% Luly Umbilical A RI 0.62 27% Luly Umbilical A PS 36.98 cm/s 14% Ebbing Umbilical A ED 14.22 cm/s Umbilical A TAmax 25.74 cm/s 29% Ebbing Umbilical A MD 13.65 cm/s Umbilical A S / D 2.60 22% Luly Umbilical A HR 147 bpm Doppler Arterial Umbilical A PI 0.81 10% Luly Umbilical A RI 0.61 22% Luly Umbilical A PS 26.76 cm/s <1% Ebbing Umbilical A ED 10.37 cm/s Umbilical A TAmax 20.30 cm/s 3% Ebbing Umbilical A MD 9.82 cm/s Umbilical A S / D 2.58 21% Luly Umbilical A HR 158 bpm Consultation / Office Visit Office note to follow Impression Dichorionic diamniotic twin gestation Appropriate and concordant growth Normal appearing limited anatomy x 2 Normal fluid x 2 UA doppler normal x 2 Coding ======= Description: 06518-76 Follow Up Ultrasound Description: 25596-95-82 Follow up Ultrasound additional fetus Grants Assistant: RT Geoff Hines , [facility] Physician: Radha Burnett MD, FACOG Electronically signed by: Radha Burnett MD, FACOG at: 19:32 Procedure Note Radha Burnett MD - 01/02/2025 PAT NAME: ROXANA NIETO MED REC#: [id number] DA: [id number] PAT GEND: F PAT TYPE: O EXAM AWILDA: [id number] REF PHYS KAYLI CEDENO Comparison Studies The findings of this study are compared to the prior ultrasound studydated 11/28/24 Patient Status Outpatient Indication ======== Di/Di twin . AMA. MO BMI 46. CHTN. Previous c/s x 3. H/Opreeclampsia. H/O abruption. 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 Maternal Assessment Xrzvyx817 cm Height (ft)5 ft Height (in)9 in Soeocg637 kg Weight (lb)305 lb BMI45.04 kg/m Method ======= Transabdominal ultrasound examination. View: limited by multiplegestation. Limited by patient body habitus ========= Twin . Dichorionic-diamniotic. Number of fetuses: 2 Dating ====== Method of dating:based on stated BONNIE GA by prior cfmncemown80 w + 6 d BONNIE by prior assessment:03/27/2025 Ultrasound examination on:01/01/2025 GA by U/S based upon:AC, BPD, Femur, HC GA by U/S28 w + 2 d BONNIE by U/S:03/24/2025 GA by U/S based upon (Fetus 2):AC, BPD, Femur, HC GA by U/S (Fetus 2)28 w + 5 d BONNIE by U/S (Fetus 2):03/21/2025 Previous dating:based on stated BONNIE, selected on 11/28/2024 Agreed BONNIE of previous datin03/27/2025 Assigned:based on stated BONNIE, selected on 01/01/2025 Assigned GA27 w + 6 d Assigned BONNIE:03/27/2025 d Biometry Standard BPD68.8 mm 27w 5d 32% Hadlock OFD97.0 mm 31w 2d >99% Nyla HC266.3 mm 29w 0d 56% Hadlock Cerebellum tr37.1 mm 30w 4d 99% Hill AC243.3 mm 28w 4d 65% Hadlock Femur52.2 mm 27w 6d 34% Hadlock Gocjdkb36.4 mm 29w 4d 87% Nyla HC / AC1.09 EFW1,207 g 28w 0d 55% Hadlock EFW discordance7.4 % EFW (lb)2 lb EFW (oz)11 oz EFW by:Hadlock (URE-PA-LH-FL) Extended Cav. septi pel. tr7.1 mm Vp6.4 mm CM6.4 mm 42% Nicolaides Head / Face / Neck Cephalic index0.71 <1% Nicolaides Extremities / Bony Struc FL / BPD0.76 FL / HC0.20 FL / AC0.21 Other Structures [id number] bpm Biometry Standard BPD71.2 mm 28w 4d 63% Hadlock OFD91.8 mm 29w 4d 90% Nyla HC260.5 mm 28w 2d 34% Hadlock Cerebellum tr37.0 mm 30w 3d 99% Hill AC252.7 mm 29w 3d 86% Hadlock Femur53.3 mm 28w 2d 48% Hadlock Gkunaxy37.5 mm 30w 0d 94% Nyla HC / AC1.03 EFW1,303 g 28w 4d 77% Hadlock EFW discordance7.4 % EFW (lb)2 lb EFW (oz)14 oz EFW by:Hadlock (XNP-KS-EY-FL) Extended Cav. septi pel. tr6.4 mm Vp6.8 mm CM8.2 mm 87% Nicolaides Head / Face / Neck Cephalic index0.78 36% Nicolaides Extremities / Bony Struc FL / BPD0.75 FL / HC0.20 FL / AC0.21 Other Structures [id number] bpm General Evaluation Cardiac activity present. FHR 138 bpm. movements present. Presentation breech, maternal left. Placenta Placental site: anterior. Amniotic fluid Amount of AF: normal. MVP 4.9 cm. General Evaluation Cardiac activity present. FHR 144 bpm. movements present. Presentation cephalic, maternal right. Placenta Placental site: anterior. Amniotic fluid Amount of AF: normal. MVP 5.7 cm. Anatomy Cranium:Normal Cavum septi pellucidi:Normal Cerebellum:Normal Cisterna magna:Normal Head / Neck Rt lateral ventricle:Normal Lt lateral ventricle:Normal Cord insertion:Normal Stomach:Appears normal Kidneys:Appears normal Bladder:Appears normal Gender:male Wants to know gender:yes Anatomy Cranium:Normal Cavum septi pellucidi:Normal Cerebellum:Normal Cisterna magna:Normal Head / Neck Rt lateral ventricle:Normal Lt lateral ventricle:Normal Lips:Normal Profile:Nasal Bone Present Nose:not examined Face Palate:not examined 4-chamber view:visualized RVOT view:visualized LVOT view:Appears normal Heart / Thorax 3-vessel view:Appears normal 0-logvyw-psohrsq view:Appears normal Cord insertion:Appears normal Stomach:Appears normal Kidneys:Appears normal Bladder:Appears normal Gender:male Wants to know gender:yes Doppler Arterial Umbilical A PI0.88 21% Luly Umbilical A RI0.62 27% Luly Umbilical A PS36.98 cm/s 14% Ebbing Umbilical A ED14.22 cm/s Umbilical A TAmax25.74 cm/s 29% Ebbing Umbilical A MD13.65 cm/s Umbilical A S / D2.60 22% Luly Umbilical A HR147 bpm Doppler Arterial Umbilical A PI0.81 10% Luly Umbilical A RI0.61 22% Luly Umbilical A PS26.76 cm/s <1% Ebbing Umbilical A ED10.37 cm/s Umbilical A TAmax20.30 cm/s 3% Ebbing Umbilical A MD9.82 cm/s Umbilical A S / D2.58 21% Luly Umbilical A HR158 bpm Consultation / Office Visit Office note to follow Impression Dichorionic diamniotic twin gestation Appropriate and concordant growth Normal appearing limited anatomy x 2 Normal fluid x 2 UA doppler normal x 2 Coding ======= Description:48747-16 Follow Up Ultrasound Description:84629-09-94 Follow up Ultrasound additional fetus Grants Assistant: RT Geoff Hines , [facility] Physician: Radha Burnett MD, FACOG Electronically signed by: Radha Burnett MD, FACOG at: 9:32 us David Taylor MD IMG US ORDERABLES Final Result documented in this encounter Visit Diagnoses Not on filedocumented in this encounter Care Teams Laser Engraver Relationship Specialty Start Date End Date Provider, [place] [address] PCP - General 08/10/24 documented as of this encounter
--- OUTSIDE RECORDS SUMMARY | 2025-01-01 15:15 | XMS_ITS | Encounter Summary ---
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 Reports occasional [place] Cunningham contractions. Denies vaginal bleeding, leakingof fluid. * Radha Burnett MD - 01/01/2025 3:15 PM EST Patient seen in Diagnostic Center today for ultrasound. Please see ultrasound report under imaging tab of patient chart in [facility] (Viewpoint report). Radha Burnett MD documented in this encounter Plan of Treatment Upcoming Encounters Date Type Department Care Team (Late st Contact Info) Description 01/29/2025 3:15 PM EST Office Visit [facility] MATERNAL MEDICINE [address] [facility] [address] [place] [address] 01/29/2025 3:15 PM EST Appointment [facility] US PER DIAG CTR [address] [place] [address] documented as of this encounter Visit Diagnoses Diagnosis Dichorionic diamniotic twin , antepartum- Primary Chronic hypertension during , antepartum documented in this encounter Care Teams Systems Mgr Relationship Specialty Start Date End Date Provider, [place] [address] PCP - General 08/10/24 documented as of this encounter
[2025-01-23 14:07] VITALS: BMI 46.2
--- OUTSIDE RECORDS SUMMARY | 2025-01-23 14:10 | XMS_ITS | Clinical Summary ---
Author Organization [facility] Address [address] [place] [address] Care Team Providers Care Care Taker Name Role Phone Provider, No Known Primary [...] older obese women and in women of -[place] descent. Preexisting hypertension is a recognized risk [...] Description 01/01/2025 3:15 PM EST Office Visit [facility] MATERNAL MEDICINE [address] [facility] [address] [place] [address] Radha Burnett MD Dichorionic diamniotic twin , antepartum (Primary Dx); Chronic hypertension during , antepartum 01/01/2025 2:31 PM EST - 01/01/2025 11:59 PM EST Hospital Encounter [facility] [address] [place] [address] Kayli Cedeno, DO Discharge Disposition: Home or Self Care 01/01/2025 Travel 11/28/2024 2:15 PM EDT Office Visit [facility] MATERNAL MEDICINE [address] [facility] [address] [place], [place] [phone] Wayne Daniels MD Dichorionic diamniotic twin , antepartum (Primary Dx); Morbid obesity with BMI of 45.0-49.9, adult; Chronic hypertension during , antepartum; Family history of congenital anomaly; 23 weeks gestation of ; Antepartum multigravida of advanced maternal age 1011/28/2024 2:12 PM EDT - 11/28/2024 11:59 PM EDT Hospital Encounter [facility] [address] [place] [address] Kayli Cedeno, DO Discharge Disposition: Home or Self Care 11/28/2024 Travel 10/31/2024 1:15 PM EDT Office Visit [facility] MATERNAL MEDICINE [address] [facility] [place] [address] David Taylor MD Chronic hypertension during , antepartum (Primary Dx); Dichorionic diamniotic twin , antepartum 10/31/2024 12:46 PM EDT - 10/31/2024 11:59 PM EDT Hospital Encounter [facility] [address] [place] [address] Wayne Daniels MD Antepartum multigravida [...] Description 01/29/2025 3:15 PM EST Office Visit [facility] MATERNAL MEDICINE [address] [facility] [address] [place] [address] 01/29/2025 3:15 PM EST Appointment [facility] [address] [place] [address] Health Maintenance Due Date Last Done Comments [...] , antepartum Dichorionic diamniotic twin , antepartum [facility] Routine 11/28/2024 3:05 PM EDT Chronic hypertension during , antepartum Dichorionic diamniotic twin , antepartum [facility] Routine 10/31/2024 1:57 PM EDT Antepartum multigravida of advanced maternal age Dichorionic diamniotic twin , antepartum Family history of congenital anomaly , unspecified gestational age Chronic hypertension during , antepartum from Last 3 Months Results * [facility] [place] (01/01/2025 3:27 PM EST) Only the most recent of3 resultswithin the time period is included. Anatomical Region Laterality Modality Ultrasound 01/01/2025 2:55 PM EST Narrative 01/02/2025 7:32 PM EST PAT NAME: ROXANA NIETO [facility] REC#: [id number] DA: [id number] PAT GEND: F PAT TYPE: O EXAM AWILDA: [id number] REF PHYS KAYLI CEDENO Comparison Studies The [...] EFW (oz) 11 oz EFW by: Hadlock (LCR-XG-NI-FL) Extended Cav. septi pel. tr 7.1 mm Supervisor Seaming 6.4 mm CM 6.4 mm 42% Nicolaides [...] EFW (oz) 14 oz EFW by: Hadlock (NLV-AT-WF-FL) Extended Cav. septi pel. tr 6.4 mm Supervisor Seaming 6.8 mm CM 8.2 mm 87% Nicolaides [...] Heart / Thorax 3-vessel view: Appears normal 0-vsllqf-mmmuxtt view: Appears normal Cord insertion: Appears normal [...] doppler normal x 2 Coding ======= Description: 16283-44 Follow Up Ultrasound Description: 85993-14-25 Follow up Ultrasound additional fetus Grain Merchandiser: RT Geoff Hines , [facility] Physician: Radha Burnett MD, FACOG Electronically signed by: Radha Burnett MD, FACOG at: 19:32 Procedure Note Radha Burnett MD - 01/02/2025 PAT NAME: ROXANA NIETO [facility] REC#: [id number] DA: [id number] PAT GEND: F PAT TYPE: O EXAM AWILDA: [id number] REF PHYS KAYLI CEDENO Comparison Studies The findings of this study are compared to the prior ultrasound studydated 11/28/24 Patient Status Outpatient Indication ======== Di/Di twin . AMA. MO BMI 46. CHTN. Previous c/s x 3. H/Opreeclampsia. H/O abruption. 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 Maternal Assessment Iebxxi238 cm Height (ft)5 ft Height (in)9 in Kvnetm985 kg Weight (lb)305 lb BMI45.04 kg/m Method ======= Transabdominal ultrasound examination. View: limited by multiplegestation. Limited by patient body habitus ========= Twin . Dichorionic-diamniotic. Number of fetuses: 2 Dating ====== Method of dating:based on stated BONNIE GA by prior ycpxudatax67 w + 6 d BONNIE by prior [...] GA27 w + 6 d Assigned BONNIE:03/27/2025 guofgx591 d Biometry Standard BPD68.8 mm 27w 5d 32% Hadlock OFD97.0 mm 31w 2d >99% Nyla HC266.3 mm 29w 0d 56% Hadlock Cerebellum tr37.1 mm 30w 4d 99% Hill AC243.3 mm 28w 4d 65% Hadlock Femur52.2 mm 27w 6d 34% Hadlock Lrzcsru40.4 mm 29w 4d 87% Nyla HC / AC1.09 EFW1,207 g 28w 0d 55% Hadlock EFW discordance7.4 % EFW (lb)2 lb EFW (oz)11 oz EFW by:Hadlock (LNZ-DY-MM-FL) Extended Cav. septi pel. tr7.1 mm Vp6.4 mm CM6.4 mm 42% Nicolaides Head / Face / Neck Cephalic index0.71 <1% Nicolaides Extremities / Bony Struc FL / BPD0.76 FL / HC0.20 FL / AC0.21 Other Structures NDZ891 bpm Biometry Standard BPD71.2 mm 28w 4d 63% Hadlock OFD91.8 mm 29w 4d 90% Nyla HC260.5 mm 28w 2d 34% Hadlock Cerebellum tr37.0 mm 30w 3d 99% Hill AC252.7 mm 29w 3d 86% Hadlock Femur53.3 mm 28w 2d 48% Hadlock Lljmyjp04.5 mm 30w 0d 94% Nyla HC / AC1.03 EFW1,303 g 28w 4d 77% Hadlock EFW discordance7.4 % EFW (lb)2 lb EFW (oz)14 oz EFW by:Hadlock (VLX-LX-CP-FL) Extended Cav. septi pel. tr6.4 mm Vp6.8 mm CM8.2 mm 87% Nicolaides Head / Face / Neck Cephalic index0.78 36% Nicolaides Extremities / Bony Struc FL / BPD0.75 FL / HC0.20 FL / AC0.21 Other Structures JDV993 bpm General Evaluation Cardiac activity present. FHR [...] normal Heart / Thorax 3-vessel view:Appears normal 5-rsshqm-uqjxbxg view:Appears normal Cord insertion:Appears normal Stomach:Appears normal [...] UA doppler normal x 2 Coding ======= Description:23881-58 Follow Up Ultrasound Description:65401-49-61 Follow up Ultrasound additional fetus Grain Merchandiser: Taryn Hernandez RT R , RDWA Physician: Radha Burnett MD, FACOG Electronically signed by: Radha Burnett MD, FACOG at: 1119:32 us David Taylor MD [facility] [place] ORDERABLES Final Result from Last 3 Months Insurance [employer] [address] Care Teams Care Taker Relationship Specialty Start Date End Date Provider, [place] [address] PCP - General 08/10/24
--- OUTSIDE RECORDS SUMMARY | 2025-01-23 14:10 | XMS_ITS | Referral Summary ---
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
--- OUTSIDE RECORDS SUMMARY | 2025-01-23 14:10 | XMS_ITS | Encounter Summary ---
Author Organization [facility] Address [address] [place] [address] Care Team Providers Care Sheet Metal Lay Out Worker Name Role Phone Provider, No Known Primary [...] Description 01/29/2025 3:15 PM EST Office Visit [facility] [address] [place] [address] 01/29/2025 3:15 PM EST Appointment [facility] [address] [place] [address] documented as of this encounter Visit Diagnoses Not on filedocumented in this encounter Care Teams Sheet Metal Lay Out Worker Relationship Specialty Start Date End Date Provider, [place] [address] PCP - General 08/10/24 documented as of this encounter
--- OUTSIDE RECORDS SUMMARY | 2025-01-23 14:10 | XMS_ITS | Encounter Summary ---
Author Organization [facility] Address [address] [place] [address] Care Team Providers Care Home Care Music Therapist Name Role Phone Provider, No Known Primary [...] Description 01/29/2025 3:15 PM EST Office Visit [facility] MAT[facility]NAL MEDICINE [address] [place] [address] 01/29/2025 3:15 PM EST [facility]ointment [facility] [address] [place] [address] documented as of this encounter Visit Diagnoses Not on filedocumented in this encounter Care Teams Home Care Music Therapist Relationship Specialty Start Date End Date Provider, [place] [address] PCP - General 08/10/24 documented as of this encounter
--- OUTSIDE RECORDS SUMMARY | 2025-01-23 14:11 | XMS_ITS | Clinical Summary ---
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
--- OUTSIDE RECORDS SUMMARY | 2025-01-23 14:11 | XMS_ITS | Clinical Summary ---
Author Organization [facility] Address [address] [place] [address] Care Team Providers Care Mast Maker Name Role Phone Pcp, No Primary Care [...] testing 4 Active Lancets (OneTouch Delica Plus Fuhwes21B) [facility] USE TO TEST 4 TIMES [...] by mouth every 6 (six) hours. Under [place] law, monthly prescriptions (30 days) can be [...] How often do you attend chur or yazidi services? More than 4 times per year 08/16/2023 Do you belong to any clubs o r organizations such as islam groups, unions, fraternal or athletic groups, or [...] Recorded Patient Health Questionnaire-2 Score 0 02/03/2024 [facility] [...] place to sleep or slept in a [place] facility (including now)? No 08/16/2023 Outlook Depression Scale Answer Date Recorded Outlook Depression Scale Total 6 12/07/2022 The thought [...] were you homeless or living in a [place] facility (including now)? No 02/24/2024 Utilities Answer Date [...] - 3-dose SCDM series) 2012 [facility]-HPV/Cotest 11/23/2015 [facility]-LDTRW-12 Vaccine (1 - season) 2024 [facility]-Influenza Vaccine [...] ORDERABLES Final Resu lt Performing Organization Address City/[facility] Co de Phone Number [facility] [address] [place] [address] * (ABNORMAL) Hepatitis C Antibody (07/23/2023 8:37 AM EDT) Hepatitis C Antibody Positive( A) Negative 07/23/2023 2:24 PM EDT [facility] Comment:This specimen is sarah ng sent for confirmation by RT-PCR. Blood Venous blood specimen / Unknown Venipuncture / Unknown 07/23/2023 8:37 AM EDT 07/23/2023 12:38 PM EDT Result Hoda Rojas MD LAB BLOOD ORDERABLES Final Resu lt Performing Organization Address City/[facility]/ZIP Co de Phone Number [facility] [address] [place] [address] from Last 3 Months or Most Recently Relevant to Health Maintenance Additional Health Concerns Active Problems Noted Date Diagnosed Date CPM S22 PP LABOR (OBSTETRICS) 08/16/2023 Insurance [facility] MEDICAID Advance Directives * Full Code (Latest Code Status on File) Date Activated Date Inactivated Comments 02/15/2024 3:52 PM 02/18/2024 5:18 PM Question Answer Comments Patient has decision-making capacity? Yes Care Teams Mast Maker Relationship Specialty Start Date End Date Pcp, No [address] [place] [address] PCP - General Family Medicine 09/21/23
[2025-01-23 14:44] VITALS: BP 144/89; PULSE 120; RESP 19; TEMP 36.8; O2SAT 96; BMI 46.2
--- NOTE | 2025-01-23 15:00 | US_ITS ---
PROCEDURE: US OB BIOPHYSICAL PROFILE CLINICAL INDICATION: variables on twin B COMPARISON: US US OB TRANSVAGINAL from 08/08/2024 US US OB <= 14 WEEKS FETUS from 09/05/2024 FINDINGS: Transabdominal sonographic images of the uterus were obtained. From her established due date she is 31weeks 1day. The following parameters are obtained -TWIN A: Viable Fetus in the breech presentation with an anterior placenta grade 1-2. Measurements: heart Rate = 138bpm Amniotic fluid: MVP 3.34 cm Qualitative AFV:2 Breathing movements: 2 Gross Body Movements: 2 Tone: 2 Biophysical profile score: 8 No obvious anomalies evident.Kidneys, bladder, stomach, three-vessel cord appear normal. The following parameters are obtained -TWIN B: Viable Fetus in the cephalic presentation with an anterior placenta grade 1- 2. Measurements: heart Rate = 149bpm Amniotic fluid: MVP 4.72 cm Qualitative AFV:2 Breathing movements: 2 Gross Body Movements: 2 Tone: 2 Biophysical profile score: 8 No obvious anomalies evident.Kidneys, stomach, bladder, four-chamber heart, three-vessel cord appear normal. IMPRESSION: 1. Viable twin breech/cephalic. The placenta is anterior and fused grade 1-2. 2. The fluid is within normal limits with fetus A MVP 3.34 cm., fetus B MVP 4.72 cm. 3. There are 2 separate amniotic sacs seen. 4. There is good breathing movement and movement in both fetuses. Biophysical profile 8/8 for each fetus. 5. Limited anatomical scans appear normal. Dictated by: Jason Erickson MD 01/23/2025 16:22 Jason Erickson MD in OV 01/23/2025 16:22
== END 2025-01-23 16:11 | disposition home or self-care (01) ==
LOC: OBOUT 14:04 → OB 14:05
PROVIDERS: Visit Provider Nurse Practitioner Obstetrics & Gynecology
DX: O32.1XX1 Maternal care for breech presentation, fetus 1 (principal); O36.8332 Maternal care for abnormalities of the fetal heart rate or rhythm, third trimester, fetus 2; O30.033 Twin pregnancy, monochorionic/diamniotic, third trimester; Z3A.31 31 weeks gestation of pregnancy
CPT/HCPCS: 76819; 99212

== ENCOUNTER 2025-02-01 12:43 | Outpatient (CLI) | payer MEDICAID, SELFPAY ==
[2025-02-01 13:24] VITALS: BP 119/93; PULSE 105; RESP 18; TEMP 36.6; O2SAT 95; BMI 46.2
--- NOTE | 2025-02-01 14:52 | US_ITS ---
PROCEDURE: US OB BIOPHYSICAL PROFILE CLINICAL INDICATION: Twins COMPARISON: US US OB <= 14 WEEKS FETUS from 09/05/2024 US US OB BIOPHYSICAL PROFILE from 01/23/2025 FINDINGS: Transabdominal sonographic images of the uterus were obtained. From her established due date she is 32weeks 2days. Diamniotic, dichorionic twins. The following parameters are obtained: TWIN A Viable Fetus in the breech presentation with and anterior placenta grade 1. Measurements: heart Rate = 136bpm Amniotic fluid: MVP 4.51 cm Qualitative AFV:2 Breathing movements: 2 Gross Body Movements: 2 Tone: 2 Biophysical profile score: 8 No obvious anomalies evident.Kidneys, stomach, bladder, three-vessel cord appear normal. The following parameters are obtained: TWIN B Viable Fetus in the breech presentation with and anterior placenta grade 1. The cervix measures 3.77 cm in length. Measurements: heart Rate = 143 bpm Amniotic fluid: MVP 5.48 cm Qualitative AFV:2 Breathing movements: 2 Gross Body Movements: 2 Tone: 2 Biophysical profile score: 8 No obvious anomalies evident.Kidneys, bladder, three-vessel cord appear normal. IMPRESSION: 1. Viable twin breech/breech presentations. There is 2 separate anterior placentas grade 1. 2. The fluid is within normal limits with an MVP for twin A 4.51 cm. Twin B MVP 5.48 cm. 3. Biophysical profile for each fetus is 8/8 with good breathing movement and movement seen for both. 4. Limited anatomical scans appear normal. Dictated by: Jason Erickson MD 02/01/2025 16:53 Jason Erickson MD in OV 02/01/2025 16:53
== END 2025-02-01 15:49 | disposition home or self-care (01) ==
LOC: OBOUT 12:45 → OB 12:47
PROVIDERS: Visit Provider Obstetrics & Gynecology
DX: O32.1XX1 Maternal care for breech presentation, fetus 1 (principal); O32.1XX2 Maternal care for breech presentation, fetus 2; O30.043 Twin pregnancy, dichorionic/diamniotic, third trimester; Z3A.32 32 weeks gestation of pregnancy
CPT/HCPCS: 76819; 99211; 99212

== ENCOUNTER 2025-02-05 12:50 | Outpatient (CLI) | payer MEDICAID, SELFPAY ==
[2025-02-05 13:21] VITALS: BP 138/88; PULSE 110; RESP 17; TEMP 36.9; O2SAT 95; BMI 46.2
--- NOTE | 2025-02-05 13:39 | US_ITS ---
PROCEDURE: US OB BIOPHYSICAL PROFILE CLINICAL INDICATION: Twins, non-reactive strips COMPARISON: US US OB TRANSVAGINAL from 08/08/2024 US US OB <= 14 WEEKS FETUS from 09/05/2024 US US OB BIOPHYSICAL PROFILE from 01/23/2025 US US OB BIOPHYSICAL PROFILE from 02/01/2025 FINDINGS: Transabdominal sonographic images of the uterus were obtained. From her established due date she is 33weeks. The following parameters are obtained: TWIN A: Viable Fetus in the breech presentation with and anterior placenta grade 2. Measurements: heart Rate = 139bpm Amniotic fluid: MVP 4.01 cm Qualitative AFV:2 Breathing movements: 2 Gross Body Movements: 2 Tone: 2 Biophysical profile score: 8 No obvious anomalies evident.Kidneys, four-chamber heart, three-vessel cord appear normal. TWIN B: Viable Fetus in the transverse with head on the right presentation with and anterior placenta grade 2. Measurements: heart Rate = 149bpm Amniotic fluid: MVP 4.71 cm Qualitative AFV:2 Breathing movements: 2 Gross Body Movements: 2 Tone: 2 Biophysical profile score: 8 No obvious anomalies evident.Kidneys, stomach four-chamber heart, three-vessel cord appear normal. IMPRESSION: 1. Viable twin breech/transverse right with an anterior placenta grade 2. 2. Fluid is within normal limits with an MVP 4.01 cm for twin A and MVP 4.71 cm for twin B. 3. Biophysical profile is 8/8 for both fetuses. 4. Follow-up in the office in 4 days as planned. Dictated by: Jason Erickson MD 02/05/2025 16:03 Jason Erickson MD in OV 02/05/2025 16:03
== END 2025-02-05 14:36 | disposition home or self-care (01) ==
LOC: OBOUT 12:52 → OB 12:53
PROVIDERS: Visit Provider Nurse Practitioner Obstetrics & Gynecology
DX: O32.1XX1 Maternal care for breech presentation, fetus 1 (principal); O32.2XX2 Maternal care for transverse and oblique lie, fetus 2; O30.003 Twin pregnancy, unspecified number of placenta and unspecified number of amniotic sacs, third trimester; Z3A.33 33 weeks gestation of pregnancy
CPT/HCPCS: 76819; 99213

== ENCOUNTER 2025-02-08 12:42 | Outpatient (CLI) | payer MEDICAID, SELFPAY ==
--- OUTSIDE RECORDS SUMMARY | 2025-01-01 14:31 | XMS_ITS | Encounter Summary ---
[facility] Address [address] [place] [address] Care Team Providers Care It Systems Analyst Consultant Name Role Phone Provider, No Known Primary Care Provider Unavail able Reason for Visit * Diagnostic Imaging (Routine) - Authorized Specialty Diagnoses / Procedures Referred By Contmarlen t Referred To Contact Radiology Diagnoses Chronic hypertension during , antepartum Dichorionic diamniotic twin , antepartum Procedures [facility] Taylor, David Pearl MD [address] [place] [address] Phone: tel: fax: [facility] US PER DIAG CTR [address] [place] [address] Phone: tel: Referral ID Status Reason Start Date Expiration Date V isits Requested Visits Authorized [id number] Authorized 10/31/2024 01/30/2026 4 4 Encounter Details Date Type Department Care Team (Latest Contact Info) Description 01/01/2025 2:31 PM EST - 01/01/2025 11:59 PM EST Hospital Encounter [facility] US PER DIAG CTR [address] [place] [address] Kayli Cedeno, [address] [place] [address] [address] [id number] Discharge Disposition: Home or Self Care Social [...] Procedure Name Priority Date/Time Associated Diagnosis Comments [facility] Routine 01/01/2025 3:27 PM EST Chronic hypertension during , antepartum Dichorionic diamniotic twin , antepartum documented in this encounter Results * [facility] (01/01/2025 3:27 PM EST) Anatomical Region Laterality Modality Ultrasound 01/01/2025 2:55 PM EST Narrative 01/02/2025 7:32 PM EST PAT NAME: ROXANA NIETO MED REC#: [id number] DA: [id number] PAT GEND: F PAT TYPE: O EXAM AWILDA: [id number] REF PHYS KAYLI CEDENO Comparison Studies The [...] EFW (oz) 11 oz EFW by: Hadlock (MOZ-FT-EU-FL) Extended Cav. septi pel. tr 7.1 mm Soldering Machine Operator Helper 6.4 mm CM 6.4 mm 42% Nicolaides [...] EFW (oz) 14 oz EFW by: Hadlock (YEZ-BC-HG-FL) Extended Cav. septi pel. tr 6.4 mm Soldering Machine Operator Helper 6.8 mm CM 8.2 mm 87% Nicolaides [...] Heart / Thorax 3-vessel view: Appears normal 0-hmcrlj-xxtnsns view: Appears normal Cord insertion: Appears normal [...] doppler normal x 2 Coding ======= Description: 53938-60 Follow Up Ultrasound Description: 40524-83-81 Follow up Ultrasound additional fetus Lithographer Apprentice: RT Geoff Hines , [facility] Physician: Radha Burnett MD, FACOG Electronically signed by: Radha Burnett MD, FACOG at: 19:32 Procedure Note Radha Burnett MD - 01/02/2025 PAT NAME: ROXANA NIETO MED REC#: [id number] DA: [id number] PAT GEND: F PAT TYPE: O EXAM AWILDA: [id number] REF PHYS KAYLI CEDENO Comparison Studies The findings of this study are compared to the prior ultrasound studydated 11/28/24 Patient Status Outpatient Indication ======== Di/Di twin . AMA. MO BMI 46. CHTN. Previous c/s x 3. H/Opreeclampsia. H/O abruption. 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 Maternal Assessment Lsaqko142 cm Height (ft)5 ft Height (in)9 in Dmskxc749 kg Weight (lb)305 lb BMI45.04 kg/m Method ======= Transabdominal ultrasound examination. View: limited by multiplegestation. Limited by patient body habitus ========= Twin . Dichorionic-diamniotic. Number of fetuses: 2 Dating ====== Method of dating:based on stated BONNIE GA by prior vhaaxozgzy11 w + 6 d BONNIE by prior [...] GA27 w + 6 d Assigned BONNIE:03/27/2025 anxijo429 d Biometry Standard BPD68.8 mm 27w 5d 32% Hadlock OFD97.0 mm 31w 2d >99% Nyla HC266.3 mm 29w 0d 56% Hadlock Cerebellum tr37.1 mm 30w 4d 99% Hill AC243.3 mm 28w 4d 65% Hadlock Femur52.2 mm 27w 6d 34% Hadlock Xdhnluy68.4 mm 29w 4d 87% Nyla HC / AC1.09 EFW1,207 g 28w 0d 55% Hadlock EFW discordance7.4 % EFW (lb)2 lb EFW (oz)11 oz EFW by:Hadlock (HTR-HJ-VQ-FL) Extended Cav. septi pel. tr7.1 mm Vp6.4 mm CM6.4 mm 42% Nicolaides Head / Face / Neck Cephalic index0.71 <1% Nicolaides Extremities / Bony Struc FL / BPD0.76 FL / HC0.20 FL / AC0.21 Other Structures SBA705 bpm Biometry Standard BPD71.2 mm 28w 4d 63% Hadlock OFD91.8 mm 29w 4d 90% Nyla HC260.5 mm 28w 2d 34% Hadlock Cerebellum tr37.0 mm 30w 3d 99% Hill AC252.7 mm 29w 3d 86% Hadlock Femur53.3 mm 28w 2d 48% Hadlock Mownnna81.5 mm 30w 0d 94% Nyla HC / AC1.03 EFW1,303 g 28w 4d 77% Hadlock EFW discordance7.4 % EFW (lb)2 lb EFW (oz)14 oz EFW by:Hadlock (LMC-IF-JL-FL) Extended Cav. septi pel. tr6.4 mm Vp6.8 mm CM8.2 mm 87% Nicolaides Head / Face / Neck Cephalic index0.78 36% Nicolaides Extremities / Bony Struc FL / BPD0.75 FL / HC0.20 FL / AC0.21 Other Structures CID738 bpm General Evaluation Cardiac activity present. FHR [...] normal Heart / Thorax 3-vessel view:Appears normal 4-stiikr-oiaqast view:Appears normal Cord insertion:Appears normal Stomach:Appears normal [...] UA doppler normal x 2 Coding ======= Description:27504-88 Follow Up Ultrasound Description:14042-01-35 Follow up Ultrasound additional fetus Lithographer Apprentice: RT Geoff Hines , [facility] Physician: Radha Burnett MD, FACOG Electronically signed by: Radha Burnett MD, FACOG at: 1119:32 us David Taylor MD IMG US ORDERABLES Final Result documented in this encounter Visit Diagnoses Not on filedocumented in this encounter Care Teams It Systems Analyst Consultant Relationship Specialty Start Date End Date Provider, No Known [facility] [place] [address] PCP - General 08/10/24 documented as of this encounter
--- OUTSIDE RECORDS SUMMARY | 2025-01-01 15:15 | XMS_ITS | Encounter Summary ---
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 MATERNAL MEDICINE [address] [phone] Radha Burnett MD [address] [place] [address] Dichorionic diamniotic twin , antepartum (Primary Dx); [...] Pt reports +FM x 2. Reports occasional Holmen Cunningham contractions. Denies vaginal bleeding, leakingof fluid. * Radha Burnett MD - 01/01/2025 3:15 PM EST Patient seen in [facility] today for ultrasound. Please see ultrasound report under imaging tab of patient chart in [facility] (Viewpoint report). Radha Burnett MD documented in this encounter Plan of Treatment Not on file documented as of this encounter Visit Diagnoses Diagnosis Dichorionic diamniotic twin , antepartum- Primary Chronic hypertension during , antepartum documented in this encounter Care Teams Loan Funder Relationship Specialty Start Date End Date Provider, [place] [address] PCP - General 08/10/24 documented as of this encounter
--- OUTSIDE RECORDS SUMMARY | 2025-01-29 14:43 | XMS_ITS | Encounter Summary ---
[facility] Address [address] [place] [address] Care Team Providers Care Manager Clinical Name Role Phone Provider, No Known Primary Care Provider Unavail able Reason for Visit * Diagnostic Imaging (Routine) - Authorized Specialty Diagnoses / Procedures Referred By Contmarlen t Referred To Contact Radiology Diagnoses Chronic hypertension during , antepartum Dichorionic diamniotic twin , antepartum Procedures [facility] Taylor, David Pearl MD [address] [place] [address] Phone: tel: fax: [facility] PER DIAG [facility] [address] [place] [address] Phone: tel: Referral ID Status Reason Start Date Expiration Date V isits Requested Visits Authorized [id number] Authorized 10/31/2024 01/30/2026 4 4 Encounter Details Date Type Department Care Team (Latest Contact Info) Description 01/29/2025 2:43 PM EST - 01/29/2025 11:59 PM EST Hospital Encounter [facility] PER DIAG [facility] [address] [place] [address] Kayli Cedeno, [address] [place] [address] [address] [id number] Discharge Disposition: Home or Self Care Social [...] Procedure Name Priority Date/Time Associated Diagnosis Comments [facility] Routine 01/29/2025 3:54 PM EST Chronic hypertension during , antepartum Dichorionic diamniotic twin , antepartum documented in this encounter Results * [facility] (01/29/2025 3:54 PM EST) Anatomical Region Laterality Modality Ultrasound 01/29/2025 3:02 PM EST Narrative 01/29/2025 4:01 PM EST PAT NAME: ROXANA NIETO MED REC#: [id number] DA: [id number] PAT GEND: F PAT TYPE: O EXAM AWILDA: [id number] REF PHYS KAYLI CEDENO Comparison Studies The [...] EFW (oz) 10 oz EFW by: Hadlock (YQN-AM-DT-FL) Extended Cav. septi pel. tr 7.9 mm Keyboard Instrument Tuner 6.4 mm CM 6.3 mm 23% Nicolaides [...] EFW (oz) 10 oz EFW by: Hadlock (DLO-GC-VG-FL) Extended Nasal bone 10.8 mm Head / [...] Normal Heart / Thorax 3-vessel view: Normal 4-eiylta-kwtovyg view: normal Cord insertion: Normal Stomach: Appears [...] Heart / Thorax 3-vessel view: Appears normal 6-stixdz-nryoghj view: Appears normal Cord insertion: Appears normal [...] fetus Description: BPP without NST additional fetus Cnc Machine Operator: Jennifer Collazo RDMS Physician: Radha Burnett MD, FACOG Electronically signed by: Radha Burnett MD, FACOG at: 16:01 Procedure Note Radha Burnett MD - 01/29/2025 PAT NAME: ROXANA NIETO [facility] REC#: [id number] DA: [id number] PAT GEND: F PAT TYPE: O EXAM AWILDA: [id number] REF PHYS KAYLI CEDENO Comparison Studies The findings of this study are compared to the prior ultrasound studydated Patient Status Outpatient Indication ======== Di/Di twin . AMA. MO BMI 44. CHTN. Previous c/s x 3. H/Opreeclampsia. H/O abruption. 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 Maternal Assessment Paigar744 cm Height (ft)5 ft Height (in)9 in Kodhje805 kg Weight (lb)300 lb BMI44.30 kg/m Method ======= Transabdominal ultrasound examination. View: limited by multiplegestation ========= Twin . Dichorionic-diamniotic. Number of fetuses: 2 Dating ====== Method of dating:based on stated BONNIE GA by prior smiyihdwcd10 w + 6 d BONNIE by prior [...] Assigned GA31 w + 6 d Assigned BONNEI:03/27/2025 d Biometry Standard BPD77.0 mm 30w 6d 15% Hadlock VLL443.0 mm 35w 2d 98% Nyla HC295.7 mm 32w 5d 34% Hadlock Cerebellum tr38.1 mm 31w 1d 14% Hill AC301.0 mm 34w 0d 95% Hadlock Femur61.0 mm 31w 5d 32% Hadlock Rmcxpyp64.8 mm 31w 2d 35% Nyla HC / AC0.98 EFW2,085 g 32w 4d 74% Hadlock EFW discordance0.3 % EFW (lb)4 lb EFW (oz)10 oz EFW by:Hadlock (WPW-QF-JZ-FL) Extended Cav. septi pel. tr7.9 mm Vp6.4 mm CM6.3 mm 23% Nicolaides Nasal bone10.6 mm Head / Face / Neck Cephalic index0.72 1% Nicolaides Extremities / Bony Struc FL / BPD0.79 FL / HC0.21 FL / AC0.20 Other Structures NKN639 bpm Biometry Standard BPD79.4 mm 31w 6d 41% Hadlock VYM366.2 mm 34w 4d 94% Nyla HC303.8 mm 33w 5d 66% Hadlock AC287.3 mm 32w 5d 74% Hadlock Femur64.8 mm 33w 3d 79% Hadlock Ixyeiny68.4 mm 32w 2d 61% Nyla HC / AC1.06 EFW2,090 g 32w 5d 74% Hadlock EFW discordance0.3 % EFW (lb)4 lb EFW (oz)10 oz EFW by:Hadlock (OZE-XX-WC-FL) Extended Nasal bone10.8 mm Head / Face / Neck Cephalic index0.75 11% Nicolaides Extremities / Bony Struc FL / BPD0.82 FL / HC0.21 FL / AC0.23 Other Structures WDK264 bpm General Evaluation Cardiac activity present. FHR [...] LVOT view:Normal Heart / Thorax 3-vessel view:Normal 6-dfjaov-zfqvctc view:normal Cord insertion:Normal Stomach:Appears normal Kidneys:Appears normal Bladder:Appears normal Gender:male Wants to know gender:yes Anatomy Cranium:Normal Cavum septi pellucidi:documented previously Cerebellum:documented previously Cisterna magna:documented previously Head / Neck Rt lateral ventricle:documented previously Lt lateral ventricle:documented previously Lips:Normal Profile:Normal Nose:Normal 4-chamber view:Appears normal RVOT view:Appears normal LVOT view:documented previously Heart / Thorax 3-vessel view:Appears normal 9-cpawot-zqbjgzi view:Appears normal Cord insertion:Appears normal Stomach:Appears normal [...] fetus Description: BPP without NST additional fetus Cnc Machine Operator: Jennifer Collazo RDMS Physician: Radha Burnett MD, FACOG Electronically signed by: Radha Burnett MD, FACOG at: 16:01 us David Taylor MD IMG US ORDERABLES Final Result documented in this encounter Visit Diagnoses Not on filedocumented in this encounter Care Teams Manager Clinical Relationship Specialty Start Date End Date Provider, [place] [address] PCP - General 08/10/24 documented as of this encounter
--- OUTSIDE RECORDS SUMMARY | 2025-01-29 15:15 | XMS_ITS | Encounter Summary ---
Author Organization [facility] Address [address] [place] [address] Care Team Providers Care Lead Web Application Developer Name Role Phone Provider, No Known Primary Care Provider Unavail able Reason for Visit * Reason Comments AMA, di/di twins, MO, CHTN, HX C/S x3 Encounter Details Date Type Department Care Team (Late st Contact Info) Description 01/29/2025 3:15 PM EST Office Visit [facility] MATERNAL MEDICINE [address] [facility] [address] [place], [place] [address] Radha Burnett MD [address] [place] [address] Chronic hypertension during , antepartum (Primary Dx); [...] CVS. Radha Burnett MD FACOG Maternal Medicine, [facility] 01/29/2025 documented in this encounter Plan of Treatment Not on file documented as of this encounter Visit Diagnoses Diagnosis Chronic hypertension during , antepartum- Primary Dichorionic diamniotic twin , antepartum Antepartum multigravida of advanced maternal age documented in this encounter Care Teams Lead Web Application Developer Relationship Specialty Start Date End Date Provider, [place] [address] PCP - General 08/10/24 documented as of this encounter
--- NOTE | 2025-02-08 | US_ITS ---
PROCEDURE: US OB BIOPHYSICAL PROFILE CLINICAL INDICATION: COMPARISON: US US OB TRANSVAGINAL from 08/08/2024 US US OB <= 14 WEEKS FETUS from 09/05/2024 US US OB BIOPHYSICAL PROFILE from 01/23/2025 US US OB BIOPHYSICAL PROFILE from 02/01/2025 US US OB BIOPHYSICAL PROFILE from 02/05/2025 FINDINGS: Transabdominal sonographic images of the uterus were obtained. From her established due date she is 33weeks 2days. The cervix measures 4.30 cm in length. The following parameters are obtained: TWIN A Viable Fetus in the BREECH presentation with and anterior placenta grade 2. Measurements: heart Rate = 144bpm Amniotic fluid: MVP 4.72 cm Qualitative AFV:2 Breathing movements: 2 Gross Body Movements: 2 Tone: 2 Biophysical profile score: 8 No obvious anomalies evident.Kidneys, stomach, bladder, three-vessel cord appear normal. The following parameters are obtained: TWIN B Viable Fetus in the breech presentation with and anterior placenta grade 2. Measurements: heart Rate = 138 BPM Amniotic fluid: MVP 9.28 cm Qualitative AFV:2 Breathing movements: 2 Gross Body Movements: 2 Tone: 2 Biophysical profile score: 8 No obvious anomalies evident. IMPRESSION: 1. Viable twin both fetus is in the breech presentation with an anterior placenta grade 2. 2. The fluid is within normal limits around each fetus. 3. Biophysical profile is 8/8 for both twins. There is good breathing movement and movement seen in both. 4. Limited anatomical scans are normal. Dictated by: Jason Erickson MD 02/08/2025 17:04 Jason Erickson MD in OV 02/08/2025 17:04
--- OUTSIDE RECORDS SUMMARY | 2025-02-08 12:51 | XMS_ITS | Clinical Summary ---
Author Organization Healthcare Address [address] [place] [address] Care Team Providers Care Toilet And Laundry Soap Supervisor Name Role Phone Pcp, No Primary Care Provider Unavailabl e Allergies Active Allergy Reactions Criticality Noted Date Comments Cephalexin Rash Low 11/05/2022 Ciprofloxacin Hives Medium 01/14/2017 Ketorolac Unknown - Patient states they do not know rxn details Low 01/14/2017 Makes my seizures worse Latex Hives Medium 03/04/2017 Shellfish Protein-Containing Drug Products Anaphylaxis High 02/23/2018 Medications Vit-Fe Fumarate-FA ( VITAMINS PO) Take 1 tablet by mouth 1 (one) time each day. Active Blood Glucose Monitoring Suppl (OneTouch Verio Flex System) w/Device kit USE TO TEST 4 TIMES A DAY 4 Active OneTouch Verio test strip 4 (four) times a day. for testing 4 Active Lancets (OneTouch Delica Plus [id number]) [facility] USE TO TEST 4 TIMES A DAY [...] by mouth every 6 (six) hours. Under [place] law, monthly prescriptions (30 days) can be [...] How often do you attend chur or latter day services? More than 4 times per year 08/16/2023 Do you belong to any clubs o r organizations such as presybeterian groups, unions, fraternal or athletic groups, or [...] Recorded Patient Health Questionnaire-2 Score 0 02/03/2024 [facility] [place] of Occupat ional Health - Occupational Stress [...] place to sleep or slept in a long term (including now)? No 08/16/2023 [place] Depression Scale Answer Date Recorded [place] Depression Scale Total 6 12/07/2022 The thought [...] any time in the past 12 m [facility], were you homeless or living in a long term (including now)? No 02/24/2024 Utilities Answer Date [...] of 2 - PCV) 2004 [facility]-HPV/Cotest 11/23/2015 [id number] Vaccine (1 - 2024- season) 2024 [facility]-Influenza Vaccine (#1) 2024 10/28/2023, [facility]-Cervical Cancer Screening 01/08/2025 [facility]-Pap Smear 01/08/2025 01/08/2022 [facility]-Depression Screening 02/02/2025 024, 08/06/2023, 12/07/2022 [facility]-DTaP,Tdap,and Td Vaccines (4 - Td or Tdap) 12/22/2033 12/23/2023, 09/07/2022, 02/17/2019 [facility]-Zoster Vaccines (1 of 2) 11/23/2035 [facility]-HIV Screening Completed 07/23/2023, 09/06/2022 [facility]-Hepatitis C Screening Completed 2023, 07/23/2023, 09/06/2022 [facility]-Obesity Intervention Completed 024, 01/24/2024, 01/06/2024, Additional history exists HPV Vaccines (No Doses Required) Completed [facility]-HIB Vaccines Aged Out No longer e [...] Non Reactive 07/23/2023 1:19 PM EDT [facility] Comment:Screening for HIV 1 & 2 antibodies, and P24 antigen is NONREACTIVE. No confirmatory testing is required. Blood Venous blood specimen / Unknown Venipuncture / Unknown 07/23/2023 8:37 AM EDT 07/23/2023 12:39 PM EDT Result Hoda Rojas MD LAB BLOOD ORDERABLES Final Resu lt Performing Organization Address City/[facility] Co de Phone Number [facility] [address] [place] [address] * (ABNORMAL) Hepatitis C Antibody (07/23/2023 8:37 AM EDT) Hepatitis C Antibody Positive( A) Negative 07/23/2023 2:24 PM EDT [facility] Comment:This specimen is sarah ng sent for confirmation by RT-PCR. Blood Venous blood specimen / Unknown Venipuncture / Unknown 07/23/2023 8:37 AM EDT 07/23/2023 12:38 PM EDT Result Hoda Rojas MD LAB BLOOD ORDERABLES Final Resu lt Performing Organization Address City/[facility] Co de Phone Number [facility] [address] [place] [address] from Last 3 Months or Most Recently Relevant to Health Maintenance Additional Health Concerns Active Problems Noted Date Diagnosed Date CPM S22 PP LABOR (OBSTETRICS) 08/16/2023 Insurance Advance Directives * Full Code (Latest Code Status on File) Date Activated Date Inactivated Comments 02/15/2024 3:52 PM 02/18/2024 5:18 PM Question Answer Comments Patient has decision-making capacity? Yes Care Teams Toilet And Laundry Soap Supervisor Relationship Specialty Start Date End Date Pcp, No [address] [place] [address] PCP - General Family Medicine 09/21/23
--- OUTSIDE RECORDS SUMMARY | 2025-02-08 12:51 | XMS_ITS | Encounter Summary ---
Author Organization [facility] Address [address] [place] [address] Care Team Providers Care Design Engineering Manager Name Role Phone Provider, No Known [...] on filedocumented in this encounter Care Teams Design Engineering Manager Relationship Specialty Start Date End Date Provider, No Known [facility] [place] [address] PCP - General 08/10/24 documented as of this encounter
--- OUTSIDE RECORDS SUMMARY | 2025-02-08 12:51 | XMS_ITS | Encounter Summary ---
Author Organization [facility] Address [address] [place] [address] Care Team Providers Care Lead Refinery Supervisor Name Role Phone Provider, No Known Primary Care Provider Unavail able Encounter Details Date Type Department Care Team (Latest Contact Info) Description 01/29/2025 Travel Social History Tobacco Use Types Packs/Day [...] on filedocumented in this encounter Care Teams Lead Refinery Supervisor Relationship Specialty Start Date End Date Provider, No Known [facility] [place] [address] PCP - General 08/10/24 documented as of this encounter
--- OUTSIDE RECORDS SUMMARY | 2025-02-08 12:51 | XMS_ITS | Clinical Summary ---
Author Organization [facility] Address [address] [place] [address] Care Team Providers Care Poultry Farmworker Name Role Phone Provider, No Known Primary [...] & at Bedtime As Needed (nausea). Active Banophen 25 MG capsule Take 1 capsule by mouth Every 4 (Four) Hours As Needed for Sleep. Active Active Problems Problem Noted Date Diagnosed Date Morbid obesity with BMI of 45.0-49.9, adult 08/2024 Antepartum multigravida of advanced maternal age 0709/12/2024 Assessment & Plan (01/29/2025 4:02 PM EST): Appropriate and concordant growth BP well controlled Recommend twice weekly testing starting at 32 weeks GA Delivery planned at 37 weeks GA Follow up PRN Assessment & Plan (09/12/2024 2:05 PM EDT): [...] older obese women and in women of -Thai descent. Preexisting hypertension is a recognized risk [...] Encounters Date Type Department Care Team Description 01/29/2025 3:15 PM EST Office Visit [facility] MATERNAL MEDICINE [address] [phone] Radha Burnett MD Chronic hypertension during , antepartum (Primary Dx); Dichorionic diamniotic twin , antepartum; Antepartum multigravida of advanced maternal age 1201/29/2025 2:43 PM EST - 01/29/2025 11:59 PM EST Hospital Encounter [facility] US PER DIAG CTR [address] [place] [phone] Kayli Cedeno, Discharge Disposition: Home or Self Care 01/29/2025 Travel 01/01/2025 3:15 PM EST Office Visit [facility] MATERNAL MEDICINE [address] [phone] Radha Burnett MD Dichorionic diamniotic twin , antepartum (Primary Dx); Chronic hypertension during , antepartum 01/01/2025 2:31 PM EST - 01/01/2025 11:59 PM EST Hospital Encounter [facility] US PER DIAG [facility] [address] [place] [phone] Kayli Cedeno, Discharge Disposition: Home or Self Care 01/01/2025 Travel 11/28/2024 2:15 PM EDT Office Visit [facility] MATERNAL MEDICINE [address] [phone] Wayne Daniels MD Dichorionic diamniotic twin , antepartum (Primary Dx); Morbid obesity with BMI of 45.0-49.9, adult; Chronic hypertension during , antepartum; Family history of congenital anomaly; 23 weeks gestation of ; Antepartum multigravida of advanced maternal age 1011/28/2024 2:12 PM EDT - 11/28/2024 11:59 PM EDT Hospital Encounter [facility] US PER DI[facility] [address] [place] [address] Kayli Cedeno DO Discharge Disposition: Home or Self Care 11/28/2024 Travel from Last 3 Months Family History [...] oz) 01/29/2025 2:48 P M EST Height 180.3 cm (5' 11 ) 01/01/2025 2:50 PM EST Body Mass Index 41.81 01/01/2025 2:50 PM EST Plan of Treatment Health Maintenance Due Date Last Done Comments Annual Gynecologic Pelvic and Breast Exam 1985 PAP SMEAR 2006 ANNUAL PHYSICAL 08/10/2024 RSV Vaccine - Adults (1 - Risk 1-dose series) 01/30/2025 TDAP/TD VACCINES (5 - Td or Tdap) 01/09/2035 01/09/2025, 12/23/2023, 09/07/2022, Additional history exists HEPATITIS C SCREENING Completed 07/23/2023 , 07/23/2023, 04/16/2020, Additional history exists INFLUENZA VACCINE Completed 01/09/2025, , 02/17/2019 Pneumococcal Vaccine 0-49 Aged Out No longer eligible based on patient's age to complete this topic Procedures Procedure Name Priority Date/Time Associated Diagnosis Comments [facility] Routine 01/29/2025 3:54 PM EST Chronic hypertension during , antepartum Dichorionic diamniotic twin , antepartum [facility] Routine 01/01/2025 3:27 PM EST Chronic hypertension during , antepartum Dichorionic diamniotic twin , antepartum [facility] Routine 11/28/2024 3:05 PM EDT Chronic hypertension during , antepartum Dichorionic diamniotic twin , antepartum from Last 3 Months Results * [facility] (01/29/2025 3:54 PM EST) Only the most recent of3 resultswithin the time period is included. Anatomical Region Laterality Modality Ultrasound 01/29/2025 3:02 PM EST Narrative 01/29/2025 4:01 PM EST PAT NAME: ROXANA NIETO [facility] REC#: [id number] DA: [id number] PAT GEND: F PAT TYPE: O EXAM AWILDA: [id number] REF PHYS KAYLI CEDENO Comparison Studies The [...] EFW (oz) 10 oz EFW by: Hadlock (CNH-TX-GA-FL) Extended Cav. septi pel. tr 7.9 mm Health Consultant 6.4 mm CM 6.3 mm 23% Nicolaides [...] EFW (oz) 10 oz EFW by: Hadlock (NEP-DQ-YC-FL) Extended Nasal bone 10.8 mm Head / [...] Normal Heart / Thorax 3-vessel view: Normal 4-szmwtt-nuvarmo view: normal Cord insertion: Normal Stomach: Appears [...] Heart / Thorax 3-vessel view: Appears normal 9-udmfon-gktnsgk view: Appears normal Cord insertion: Appears normal [...] fetus Description: BPP without NST additional fetus Gun Stocker: Jennifer Collazo RDMS Physician: Radha Burnett MD, FACOG Electronically signed by: Radha Burnett MD, FACOG at: 16:01 Procedure Note Radha Burnett MD - 01/29/2025 PAT NAME: ROXANA NIETO [facility] REC#: [id number] DA: [id number] PAT GEND: F PAT TYPE: O EXAM AWILDA: [id number] REF PHYS KAYLI CEDENO Comparison Studies The findings of this study are compared to the prior ultrasound studydated Patient Status Outpatient Indication ======== Di/Di twin . AMA. MO BMI 44. CHTN. Previous c/s x 3. H/Opreeclampsia. H/O abruption. 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 Maternal Assessment Jfxomi461 cm Height (ft)5 ft Height (in)9 in Ugttlp591 kg Weight (lb)300 lb BMI44.30 kg/m Method ======= Transabdominal ultrasound examination. View: limited by multiplegestation ========= Twin . Dichorionic-diamniotic. Number of fetuses: 2 Dating ====== Method of dating:based on stated BONNIE GA by prior [id number] w + 6 d BONNIE by prior [...] GA31 w + 6 d Assigned BONNIE:03/27[birth year]25 [id number] d Biometry Standard BPD77.0 mm 30w 6d 15% Hadlock RVR013.0 mm 35w 2d 98% Nyla HC295.7 mm 32w 5d 34% Hadlock Cerebellum tr38.1 mm 31w 1d 14% Hill AC301.0 mm 34w 0d 95% Hadlock Femur61.0 mm 31w 5d 32% Hadlock Tsnqtht43.8 mm 31w 2d 35% Nyla HC / AC0.98 EFW2,085 g 32w 4d 74% Hadlock EFW discordance0.3 % EFW (lb)4 lb EFW (oz)10 oz EFW by:Hadlock (BHF-TY-ZP-FL) Extended Cav. septi pel. tr7.9 mm Vp6.4 mm CM6.3 mm 23% Nicolaides Nasal bone10.6 mm Head / Face / Neck Cephalic index0.72 1% Nicolaides Extremities / Bony Struc FL / BPD0.79 FL / HC0.21 FL / AC0.20 Other Structures FRP424 bpm Biometry Standard BPD79.4 mm 31w 6d 41% Hadlock SGX216.2 mm 34w 4d 94% Nyla HC303.8 mm 33w 5d 66% Hadlock AC287.3 mm 32w 5d 74% Hadlock Femur64.8 mm 33w 3d 79% Hadlock Vtlhjpo68.4 mm 32w 2d 61% Nyla HC / AC1.06 EFW2,090 g 32w 5d 74% Hadlock EFW discordance0.3 % EFW (lb)4 lb EFW (oz)10 oz EFW by:Hadlock (QME-HD-DJ-FL) Extended Nasal bone10.8 mm Head / Face / Neck Cephalic index0.75 11% Nicolaides Extremities / Bony Struc FL / BPD0.82 FL / HC0.21 FL / AC0.23 Other Structures GRO344 bpm General Evaluation Cardiac activity present. FHR [...] LVOT view:Normal Heart / Thorax 3-vessel view:Normal 9-wywcte-mwhjlpi view:normal Cord insertion:Normal Stomach:Appears normal Kidneys:Appears normal Bladder:Appears normal Gender:male Wants to know gender:yes Anatomy Cranium:Normal Cavum septi pellucidi:documented previously Cerebellum:documented previously Cisterna magna:documented previously Head / Neck Rt lateral ventricle:documented previously Lt lateral ventricle:documented previously Lips:Normal Profile:Normal Nose:Normal 4-chamber view:Appears normal RVOT view:Appears normal LVOT view:documented previously Heart / Thorax 3-vessel view:Appears normal 9-yfsbnk-lcqojxu view:Appears normal Cord insertion:Appears normal Stomach:Appears normal [...] fetus Description: BPP without NST additional fetus Gun Stocker: Jennifer Collazo RDMN Physician: Radha Burnett MD, FACOG Electronically signed by: Radha Burnett MD, FACOG at: 0816:01 us David Taylor MD [facility] ORDERABLES Final Result from Last 3 Months Insurance [employer] [place]ICA[place] Care Teams Poultry Farmworker Relationship Specialty Start Date End Date Provider, No Known [facility] [place] [address] PCP - General 08/10/24
[2025-02-08 13:40] VITALS: BP 128/89; PULSE 113; RESP 18; TEMP 36.8; O2SAT 96; BMI 46.5
[2025-02-08 14:35] LABS: Hematocrit 37.2 % (37.0-47.0); Hemoglobin 12.8 g/dL (12.2-16.2); Immature Granulocytes % 0.6 %; Mean Corpuscular HGB Conc 34.4 g/dL (31.8-35.4); Mean Corpuscular Hemoglobin 30.2 pg (27.0-31.2); Mean Corpuscular Volume 87.7 fl (81-99); Nucleated Red Blood Cells % 0 %; Platelet Count 204 K/mm3 (142-424); Red Blood Count 4.24 M/mm3 (4.20-5.40); Red Cell Distribution Width-SD 44.2 fL; White Blood Count 9.1 K/mm3 (4.8-10.8)
[2025-02-08 14:49] LABS: Albumin Level 3.4 g/dl (3.5-5.0); Chloride 107 mmol/L (98-107); Potassium 3.7 mmoL/L (3.5-5.1); Sodium 132 mmol/L (136-145)
[2025-02-08 14:52] LABS: Alanine Aminotransferase 23 U/L (12-78); Albumin/Globulin Ratio 1.2 (1.1-1.8); Alkaline Phosphatase 147 U/L (38-126); Anion Gap 6.7 mEq/L (5-15); Aspartate Amino Transferase 31 U/L (14-36); Bilirubin,Total 0.4 mg/dl (0.2-1.3); Blood Urea Nitrogen 5 mg/dl (7-17); Calcium 9.0 mg/dl (8.4-10.2); Carbon Dioxide 22 mmol/L (22.0-30.0); Creatinine Clearance Estimated 122 mL/min (50-200); Creatinine,Serum 0.60 mg/dl (0.52-1.04); Estimated Glomerular Filt Rate 111 ml/min (>60); GFR (African American) 135 ML/MIN (>60); Globulin 2.9 g/dL (1.3-3.2); Glucose 102 mg/dl (74-100); Total Protein,Serum 6.3 g/dl (6.3-8.2)
[2025-02-08 14:58] LABS: Microscopic, Urine URINE MICROSCOPIC (MICROSCOPIC)
[2025-02-08 15:01] LABS: Bilirubin,Urine Negative (Negative); Color,Urine YELLOW (Yellow); Glucose,Urine (UA) Negative (Negative); Ketones,Urine Negative (Negative); Leukocyte Esterase,Urine Negative (Negative); PH,Urine 6.5 (5.0-8.5); Protein,Urine Negative (Negative); Specific Gravity, Urine 1.010 (1.005-1.030); Urobilinogen,Urine 1.0 EU/dl (0.2)
[2025-02-08 15:23] LABS: Bacteria,Urine 3+ /lpf
== END 2025-02-08 16:15 | disposition home or self-care (01) ==
LOC: OBOUT 12:43 → OB 12:44
PROVIDERS: Visit Provider Obstetrics & Gynecology
DX: O32.1XX1 Maternal care for breech presentation, fetus 1 (principal); O32.1XX2 Maternal care for breech presentation, fetus 2; O30.003 Twin pregnancy, unspecified number of placenta and unspecified number of amniotic sacs, third trimester; Z3A.33 33 weeks gestation of pregnancy
CPT/HCPCS: 36415; 76819; 80053; 81001; 82570; 84156; 85025; 87086; 99212; 99213

== ENCOUNTER 2025-02-12 12:45 | Outpatient (CLI) | payer MEDICAID, SELFPAY ==
--- OUTSIDE RECORDS SUMMARY | 2025-01-01 14:31 | XMS_ITS | Encounter Summary ---
[facility] Address [address] [place] [address] Care Team Providers Care Direct Mail Manager Name Role Phone Provider, No Known Primary Care Provider Unavail able Reason for Visit * Diagnostic Imaging (Routine) - Authorized Specialty Diagnoses / Procedures Referred By Contmarlen t Referred To Contact Radiology Diagnoses Chronic hypertension during , antepartum Dichorionic diamniotic twin , antepartum Procedures [facility] Taylor, David Pearl MD [address] [place] [address] Phone: tel: fax: [facility] US PER DIAG CTR [address] [place] [address] Phone: tel: Referral ID Status Reason Start Date Expiration Date V isits Requested Visits Authorized [id number] Authorized 10/31/2024 01/30/2026 4 4 Encounter Details Date Type Department Care Team (Latest Contact Info) Description 01/01/2025 2:31 PM EST - 01/01/2025 11:59 PM EST Hospital Encounter [facility] US PER DIAG CTR [address] [place] [address] Kayli Cedeno, [address] [place] [address] [address] [id number] Discharge Disposition: Home or Self Care Social [...] Procedure Name Priority Date/Time Associated Diagnosis Comments [facility] Routine 01/01/2025 3:27 PM EST Chronic hypertension during , antepartum Dichorionic diamniotic twin , antepartum documented in this encounter Results * [facility] (01/01/2025 3:27 PM EST) Anatomical Region Laterality Modality Ultrasound 01/01/2025 2:55 PM EST Narrative 01/02/2025 7:32 PM EST PAT NAME: ROXANA NIETO MED REC#: [id number] DA: [id number] PAT GEND: F PAT TYPE: O EXAM AWILDA: [id number] REF PHYS KAYLI CEDENO Comparison Studies The [...] EFW (oz) 11 oz EFW by: Hadlock (ZCZ-MM-OP-FL) Extended Cav. septi pel. tr 7.1 mm Speedboat Driver 6.4 mm CM 6.4 mm 42% Nicolaides [...] EFW (oz) 14 oz EFW by: Hadlock (OIR-BM-MJ-FL) Extended Cav. septi pel. tr 6.4 mm Speedboat Driver 6.8 mm CM 8.2 mm 87% Nicolaides [...] Heart / Thorax 3-vessel view: Appears normal 9-tdbjaw-peenagv view: Appears normal Cord insertion: Appears normal [...] Doppler Arterial Umbilical A PI 0.81 10% Lluy Umbilical A RI 0.61 22% Luly Umbilical [...] doppler normal x 2 Coding ======= Description: 81765-33 Follow Up Ultrasound Description: 63332-18-85 Follow up Ultrasound additional fetus Coat Fitter: RT Geoff Hines , [facility] Physician: Radha Burnett MD, FACOG Electronically signed by: Radha Burnett MD, FACOG at: 19:32 Procedure Note Radha Burnett MD - 01/02/2025 PAT NAME: ROXANA NIETO MED REC#: [id number] DA: [id number] PAT GEND: F PAT TYPE: O EXAM AWILDA: [id number] REF PHYS KAYLI CEDENO Comparison Studies The findings of this study are compared to the prior ultrasound studydated 11/28/24 Patient Status Outpatient Indication ======== Di/Di twin . AMA. MO BMI 46. CHTN. Previous c/s x 3. H/Opreeclampsia. H/O abruption. 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 Maternal Assessment Lgjifs270 cm Height (ft)5 ft Height (in)9 in Lpzroi791 kg Weight (lb)305 lb BMI45.04 kg/m Method ======= Transabdominal ultrasound examination. View: limited by multiplegestation. Limited by patient body habitus ========= Twin . Dichorionic-diamniotic. Number of fetuses: 2 Dating ====== Method of dating:based on stated BONNIE GA by prior qoxvchrbbv68 w + 6 d BONNIE by prior [...] GA27 w + 6 d Assigned BONNIE:03/27/2025 rajkpw212 d Biometry Standard BPD68.8 mm 27w 5d 32% Hadlock OFD97.0 mm 31w 2d >99% Nyla HC266.3 mm 29w 0d 56% Hadlock Cerebellum tr37.1 mm 30w 4d 99% Hill AC243.3 mm 28w 4d 65% Hadlock Femur52.2 mm 27w 6d 34% Hadlock Cctpfcd66.4 mm 29w 4d 87% Nyla HC / AC1.09 EFW1,207 g 28w 0d 55% Hadlock EFW discordance7.4 % EFW (lb)2 lb EFW (oz)11 oz EFW by:Hadlock (AXA-UF-SM-FL) Extended Cav. septi pel. tr7.1 mm Vp6.4 mm CM6.4 mm 42% Nicolaides Head / Face / Neck Cephalic index0.71 <1% Nicolaides Extremities / Bony Struc FL / BPD0.76 FL / HC0.20 FL / AC0.21 Other Structures IXZ183 bpm Biometry Standard BPD71.2 mm 28w 4d 63% Hadlock OFD91.8 mm 29w 4d 90% Nyla HC260.5 mm 28w 2d 34% Hadlock Cerebellum tr37.0 mm 30w 3d 99% Hill AC252.7 mm 29w 3d 86% Hadlock Femur53.3 mm 28w 2d 48% Hadlock Etjiopb66.5 mm 30w 0d 94% Nyla HC / AC1.03 EFW1,303 g 28w 4d 77% Hadlock EFW discordance7.4 % EFW (lb)2 lb EFW (oz)14 oz EFW by:Hadlock (PGL-YV-VV-FL) Extended Cav. septi pel. tr6.4 mm Vp6.8 mm CM8.2 mm 87% Nicolaides Head / Face / Neck Cephalic index0.78 36% Nicolaides Extremities / Bony Struc FL / BPD0.75 FL / HC0.20 FL / AC0.21 Other Structures IIA571 bpm General Evaluation Cardiac activity present. FHR [...] normal Heart / Thorax 3-vessel view:Appears normal 3-jhdycz-ljtbkos view:Appears normal Cord insertion:Appears normal Stomach:Appears normal [...] UA doppler normal x 2 Coding ======= Description:59774-60 Follow Up Ultrasound Description:31970-23-26 Follow up Ultrasound additional fetus Coat Fitter: RT Geoff Hines , [facility] Physician: Radha Burnett MD, FACOG Electronically signed by: Radha Burnett MD, FACOG at: 1119:32 us David Taylor MD IMG US ORDERABLES Final Result documented in this encounter Visit Diagnoses Not on filedocumented in this encounter Care Teams Direct Mail Manager Relationship Specialty Start Date End Date Provider, No Known [facility] [place] [address] PCP - General 08/10/24 documented as of this encounter
--- OUTSIDE RECORDS SUMMARY | 2025-01-01 15:15 | XMS_ITS | Encounter Summary ---
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 Reports occasional [place] [employer] Cunningham contractions. Denies vaginal bleeding, leakingof fluid. * Radha Burnett MD - 01/01/2025 3:15 PM EST Patient seen in Diagnostic Center today for ultrasound. Please see ultrasound report under imaging tab of [facility] chart in [facility] (Viewpoint report). Radha Burnett MD documented in this encounter Plan of Treatment Not on file documented as of this encounter Visit Diagnoses Diagnosis Dichorionic diamniotic twin , antepartum- Primary Chronic hypertension during , antepartum documented in this encounter Care Teams Golf Course Mechanic Relationship Specialty Start Date End Date Provider, [place] [address] PCP - General 08/10/24 documented as of this encounter
--- OUTSIDE RECORDS SUMMARY | 2025-01-29 14:43 | XMS_ITS | Encounter Summary ---
[facility] Address [address] [place] [address] Care Team Providers Care Manager Sterile Name Role Phone Provider, No Known Primary Care Provider Unavail able Reason for Visit * Diagnostic Imaging (Routine) - Authorized Specialty Diagnoses / Procedures Referred By Contmarlen t Referred To Contact Radiology Diagnoses Chronic hypertension during , antepartum Dichorionic diamniotic twin , antepartum Procedures [facility] Taylor, David Pearl MD [address] [place] [address] Phone: tel: fax: [facility] DI[facility] [address] [place] [address] Phone: tel: Referral ID Status Reason Start Date Expiration Date V isits Requested Visits Authorized [id number] Authorized 10/31/2024 01/30/2026 4 4 Encounter Details Date Type Department Care Team (Latest Contact Info) Description 01/29/2025 2:43 PM EST - 01/29/2025 11:59 PM EST Hospital Encounter [facility] [address] [place] [address] Kayli Cedeno, [address] [place] [address] [address] [id number] Discharge Disposition: Home or Self Care Social [...] Priority Date/Time Associated Diagnosis Comments [facility] Routine 01/29/2025 3:54 PM EST Chronic hypertension during , antepartum Dichorionic diamniotic twin , antepartum documented in this encounter Results * [facility] (01/29/2025 3:54 PM EST) Anatomical Region Laterality Modality Ultrasound 01/29/2025 3:02 PM EST Narrative 01/29/2025 4:01 PM EST PAT NAME: ROXANA NIETO MED REC#: [id number] DA: [id number] PAT GEND: F PAT TYPE: O EXAM AWILDA: [id number] REF PHYS KAYLI CEDENO Comparison Studies The [...] EFW (oz) 10 oz EFW by: Hadlock (NGF-QE-CT-FL) Extended Cav. septi pel. tr 7.9 mm Director Advanced 6.4 mm CM 6.3 mm 23% Nicolaides [...] EFW (oz) 10 oz EFW by: Hadlock (OKA-CE-WA-FL) Extended Nasal bone 10.8 mm Head / [...] Normal Heart / Thorax 3-vessel view: Normal 7-jkxzti-klqnwwt view: normal Cord insertion: Normal Stomach: Appears [...] Heart / Thorax 3-vessel view: Appears normal 6-hfptpl-pxgnqiy view: Appears normal Cord insertion: Appears normal [...] fetus Description: BPP without NST additional fetus Nuclear Chemistry Technician: Jennifer Collazo RDMS Physician: Radha Burnett MD, FACOG Electronically signed by: Radha Burnett MD, FACOG at: 16:01 Procedure Note Radha Burnett MD - 01/29/2025 PAT NAME: ROXANA NIETO [facility] REC#: [id number] DA: [id number] PAT GEND: F PAT TYPE: O EXAM AWILDA: [id number] REF PHYS KAYLI CEDENO Comparison Studies The findings of this study are compared to the prior ultrasound studydated Patient Status Outpatient Indication ======== Di/Di twin . AMA. MO BMI 44. CHTN. Previous c/s x 3. H/Opreeclampsia. H/O abruption. 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 Maternal Assessment Wbwbiy048 cm Height (ft)5 ft Height (in)9 in Nvvvmr242 kg Weight (lb)300 lb BMI44.30 kg/m Method [...] GA31 w + 6 d Assigned BONNIE:03/27/2025 tbexle563 d Biometry Standard BPD77.0 mm 30w 6d 15% Hadlock TTP409.0 mm 35w 2d 98% Nyla HC295.7 mm 32w 5d 34% Hadlock Cerebellum tr38.1 mm 31w 1d 14% Hill AC301.0 mm 34w 0d 95% Hadlock Femur61.0 mm 31w 5d 32% Hadlock Krixhpu28.8 mm 31w 2d 35% Nyla HC / AC0.98 EFW2,085 g 32w 4d 74% Hadlock EFW discordance0.3 % EFW (lb)4 lb EFW (oz)10 oz EFW by:Hadlock (WIK-LS-SQ-FL) Extended Cav. septi pel. tr7.9 mm Vp6.4 mm CM6.3 mm 23% Nicolaides Nasal bone10.6 mm Head / Face / Neck Cephalic index0.72 1% Nicolaides Extremities / Bony Struc FL / BPD0.79 FL / HC0.21 FL / AC0.20 Other Structures BGN576 bpm Biometry Standard BPD79.4 mm 31w 6d 41% Hadlock FXY113.2 mm 34w 4d 94% Nyla HC303.8 mm 33w 5d 66% Hadlock AC287.3 mm 32w 5d 74% Hadlock Femur64.8 mm 33w 3d 79% Hadlock Nlgijxj12.4 mm 32w 2d 61% Nyla HC / AC1.06 EFW2,090 g 32w 5d 74% Hadlock EFW discordance0.3 % EFW (lb)4 lb EFW (oz)10 oz EFW by:Hadlock (HEK-HD-RU-FL) Extended Nasal bone10.8 mm Head / Face / Neck Cephalic index0.75 11% Nicolaides Extremities / Bony Struc FL / BPD0.82 FL / HC0.21 FL / AC0.23 Other Structures NZH654 bpm General Evaluation Cardiac activity present. FHR [...] LVOT view:Normal Heart / Thorax 3-vessel view:Normal 1-zmafbu-ollbkch view:normal Cord insertion:Normal Stomach:Appears normal Kidneys:Appears normal Bladder:Appears normal Gender:male Wants to know gender:yes Anatomy Cranium:Normal Cavum septi pellucidi:documented previously Cerebellum:documented previously Cisterna magna:documented previously Head / Neck Rt lateral ventricle:documented previously Lt lateral ventricle:documented previously Lips:Normal Profile:Normal Nose:Normal 4-chamber view:Appears normal RVOT view:Appears normal LVOT view:documented previously Heart / Thorax 3-vessel view:Appears normal 4-goqsgq-ubksoed view:Appears normal Cord insertion:Appears normal Stomach:Appears normal [...] fetus Description: BPP without NST additional fetus Nuclear Chemistry Technician: Jennifer Collazo RDMS Physician: Radha Burnett MD, FACOG Electronically signed by: Radha Burnett MD, FACOG at: 16:01 us David Taylor MD IMG US ORDERABLES Final Result documented in this encounter Visit Diagnoses Not on filedocumented in this encounter Care Teams Manager Sterile Relationship Specialty Start Date End Date Provider, [place] [address] PCP - General 08/10/24 documented as of this encounter
--- OUTSIDE RECORDS SUMMARY | 2025-01-29 15:15 | XMS_ITS | Encounter Summary ---
Author Organization [facility] Address [address] [place] [address] Care Team Providers Care Babcock Tester Name Role Phone Provider, No Known Primary Care Provider Unavail able Reason for Visit * Reason Comments AMA, di/di twins, MO, CHTN, HX C/S x3 Encounter Details Date Type Department Care Team (Late st Contact Info) Description 01/29/2025 3:15 PM EST Office Visit [facility] MATERNAL MEDICINE [address] [facility] [address] [place], [place] [phone] Radha Burnett MD [address] [place] [address] Chronic hypertension during , antepartum (Primary Dx); [...] CVS. Radha Burnett MD FACOG Maternal Medicine, [facility] 01/29/2025 documented in this encounter Plan of Treatment Not on file documented as of this encounter Visit Diagnoses Diagnosis Chronic hypertension during , antepartum- Primary Dichorionic diamniotic twin , antepartum Antepartum multigravida of advanced maternal age documented in this encounter Care Teams Babcock Tester Relationship Specialty Start Date End Date Provider, [place] [address] PCP - General 08/10/24 documented as of this encounter
--- OUTSIDE RECORDS SUMMARY | 2025-02-12 12:48 | XMS_ITS | Encounter Summary ---
Author Organization [facility] Address [address] [place] [address] Care Team Providers Care Pulp Roller Name Role Phone Provider, No Known Primary [...] on filedocumented in this encounter Care Teams Pulp Roller Relationship Specialty Start Date End Date Provider, No Known [facility] [address] PCP - General 08/10/24 documented as of this encounter
--- OUTSIDE RECORDS SUMMARY | 2025-02-12 12:48 | XMS_ITS | Clinical Summary ---
Author Organization [facility] Address [address] [place] [address] Care Team Providers Care Typer Name Role Phone Provider, No Known Primary [...] older obese women and in women of -[place] Islander descent. Preexisting hypertension is a recognized risk [...] [facility] [address] [phone] Radha Burnett MD Chronic hypertension during , antepartum (Primary Dx); Dichorionic diamniotic twin , antepartum; Antepartum multigravida of advanced maternal age 1201/29/2025 2:43 PM EST - 01/29/2025 11:59 PM EST Hospital Encounter [facility] [address] [place] [phone] Kayli Cedeno, Discharge Disposition: Home or Self Care 01/29/2025 Travel 01/01/2025 3:15 PM EST Office Visit [facility] [address] [phone] Radha Burnett MD Dichorionic diamniotic twin , antepartum (Primary Dx); Chronic hypertension during , antepartum 01/01/2025 2:31 PM EST - 01/01/2025 11:59 PM EST Hospital Encounter [facility] [address] [place] [phone] Kayli Cedeno, Discharge Disposition: Home or Self Care 01/01/2025 Travel 11/28/2024 2:15 PM EDT Office Visit [facility] [address] [phone] Wayne Daniels MD Dichorionic diamniotic twin , antepartum (Primary Dx); Morbid obesity with BMI of 45.0-49.9, adult; Chronic hypertension during , antepartum; Family history of congenital anomaly; 23 weeks gestation of ; Antepartum multigravida of advanced maternal age 1011/28/2024 2:12 PM EDT - 11/28/2024 11:59 PM EDT Hospital Encounter [facility] [address] [place] [address] Kayli Cedeno DO Discharge Disposition: Home or [...] Procedure Name Priority Date/Time Associated Diagnosis Comments [facility] Routine 01/29/2025 3:54 PM EST Chronic hypertension during , antepartum Dichorionic diamniotic twin , antepartum [facility] Routine 01/01/2025 3:27 PM EST Chronic hypertension during , antepartum Dichorionic diamniotic twin , antepartum [facility] Routine 11/28/2024 3:05 PM EDT Chronic hypertension during , antepartum Dichorionic diamniotic twin , antepartum from Last 3 Months Results * [facility] (01/29/2025 3:54 PM EST) Only the most recent of3 resultswithin the time period is included. Anatomical Region Laterality Modality Ultrasound 01/29/2025 3:02 PM EST Narrative 01/29/2025 4:01 PM EST PAT NAME: ROXANA NIETO [facility] REC#: [id number] DA: [id number] PAT GEND: F PAT TYPE: O EXAM AWILAD: [id number] REF PHYS KAYLI CEDENO Comparison Studies The [...] EFW (oz) 10 oz EFW by: Hadlock (YMQ-IX-LL-FL) Extended Cav. septi pel. tr 7.9 mm Children'S Counselor 6.4 mm CM 6.3 mm 23% Nicolaides [...] EFW (oz) 10 oz EFW by: Hadlock (PZS-KB-OZ-FL) Extended Nasal bone 10.8 mm Head / [...] Normal Heart / Thorax 3-vessel view: Normal 2-suiwbu-tpomlxf view: normal Cord insertion: Normal Stomach: Appears [...] Heart / Thorax 3-vessel view: Appears normal 2-cldfuo-qnpgsrz view: Appears normal Cord insertion: Appears normal [...] fetus Description: BPP without NST additional fetus Mechanical Maintenance Worker: Jennifer Collazo RDMS Physician: Radha Burnett MD, FACOG Electronically signed by: Radha Burnett MD, FACOG at: 16:01 Procedure Note Radha Burnett MD - 01/29/2025 PAT NAME: ROXANA NIETO [facility] REC#: [id number] DA: [id number] PAT GEND: F PAT TYPE: O EXAM AWILDA: [id number] REF PHYS KAYLI CEDENO Comparison Studies The findings of this study are compared to the prior ultrasound studydated Patient Status Outpatient Indication ======== Di/Di twin . AMA. MO BMI 44. CHTN. Previous c/s x 3. H/Opreeclampsia. H/O abruption. 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 Maternal Assessment Jsuaoo543 cm Height (ft)5 ft Height (in)9 in Tnsema889 kg Weight (lb)300 lb BMI44.30 kg/m Method ======= Transabdominal ultrasound examination. View: limited by multiplegestation ========= Twin . Dichorionic-diamniotic. Number of fetuses: 2 Dating ====== Method of dating:based on stated BONNIE GA by prior [id number] w + 6 d BONNIE by prior [...] GA31 w + 6 d Assigned BONNIE:03/27/2025 [id number] d Biometry Standard BPD77.0 mm 30w 6d 15% Hadlock ODF678.0 mm 35w 2d 98% Nyla HC295.7 mm 32w 5d 34% Hadlock Cerebellum tr38.1 mm 31w 1d 14% Hill AC301.0 mm 34w 0d 95% Hadlock Femur61.0 mm 31w 5d 32% Hadlock Yilsbvv97.8 mm 31w 2d 35% Nyla HC / AC0.98 EFW2,085 g 32w 4d 74% Hadlock EFW discordance0.3 % EFW (lb)4 lb EFW (oz)10 oz EFW by:Hadlock (LAT-OA-EE-FL) Extended Cav. septi pel. tr7.9 mm Vp6.4 mm CM6.3 mm 23% Nicolaides Nasal bone10.6 mm Head / Face / Neck Cephalic index0.72 1% Nicolaides Extremities / Bony Struc FL / BPD0.79 FL / HC0.21 FL / AC0.20 Other Structures IAK183 bpm Biometry Standard BPD79.4 mm 31w 6d 41% Hadlock CZQ350.2 mm 34w 4d 94% Nyla HC303.8 mm 33w 5d 66% Hadlock AC287.3 mm 32w 5d 74% Hadlock Femur64.8 mm 33w 3d 79% Hadlock Cmcudky46.4 mm 32w 2d 61% Nyla HC / AC1.06 EFW2,090 g 32w 5d 74% Hadlock EFW discordance0.3 % EFW (lb)4 lb EFW (oz)10 oz EFW by:Hadlock (OQC-BP-BJ-FL) Extended Nasal bone10.8 mm Head / Face / Neck Cephalic index0.75 11% Nicolaides Extremities / Bony Struc FL / BPD0.82 FL / HC0.21 FL / AC0.23 Other Structures RXG819 bpm General Evaluation Cardiac activity present. FHR [...] LVOT view:Normal Heart / Thorax 3-vessel view:Normal 3-lzvrug-tubwfnl view:normal Cord insertion:Normal Stomach:Appears normal Kidneys:Appears normal Bladder:Appears normal Gender:male Wants to know gender:yes Anatomy Cranium:Normal Cavum septi pellucidi:documented previously Cerebellum:documented previously Cisterna magna:documented previously Head / Neck Rt lateral ventricle:documented previously Lt lateral ventricle:documented previously Lips:Normal Profile:Normal Nose:Normal 4-chamber view:Appears normal RVOT view:Appears normal LVOT view:documented previously Heart / Thorax 3-vessel view:Appears normal 2-ozswuk-wbnxbtm view:Appears normal Cord insertion:Appears normal Stomach:Appears normal [...] fetus Description: BPP without NST additional fetus Mechanical Maintenance Worker: Jennifer oCllazo RDKY Physician: Radha Burnett MD, FACOG Electronically signed by: Radha Burnett MD, FACOG at: 0816:01 us David Taylor MD [facility] ORDERABLES Final Result from Last 3 Months Insurance [employer] MEDICAID [place] Care Teams Typer Relationship Specialty Start Date End Date Provider, No Known [facility] [place] [address] PCP - General 08/10/24
--- OUTSIDE RECORDS SUMMARY | 2025-02-12 12:48 | XMS_ITS | Encounter Summary ---
Author Organization [facility] Address [address] [place] [address] Care Team Providers Care Home Improvement Installer Name Role Phone Provider, No Known Primary [...] filedocumented in this encounter Care Teams Home Improvement Installer Relationship Specialty Start Date End Date Provider, No Known [facility] [place] [address] PCP - General 08/10/24 documented as of this encounter
--- OUTSIDE RECORDS SUMMARY | 2025-02-12 12:49 | XMS_ITS | Clinical Summary ---
Author Organization Healthcare Address [address] [place] [address] Care Team Providers Care Chaplain Resident Name Role Phone Pcp, No Primary Care [...] testing 4 Active Lancets (OneTouch Delica Plus Tcmkxi48X) [facility] USE TO TEST 4 TIMES A [...] by mouth every 6 (six) hours. Under [place] law, monthly prescriptions (30 days) can be [...] any clubs o r organizations such as baptist groups, unions, fraternal or athletic groups, or [...] Recorded Patient Health Questionnaire-2 Score 0 02/03/2024 [facility] [place] of Occupat ional Health - Occupational Stress [...] in a assisted (including now)? No 08/16/2023 [place] Depression Scale Answer Date Recorded [place] Depression Scale Total 6 12/07/2022 The thought [...] any time in the past 12 m [facility], were you homeless or living in a [...] of 2 - PCV) 2004 [facility]-HPV/Cotest 11/23/2015 [id number]-81 Vaccine (1 - 2024- season) 2024 [facility]-Influenza [...] Non Reactive 07/23/2023 1:19 PM EDT [facility] Comment:Screening for HIV 1 & 2 antibodies, and P24 antigen is NONREACTIVE. No confirmatory testing is required. Blood Venous blood specimen / Unknown Venipuncture / Unknown 07/23/2023 8:37 AM EDT 07/23/2023 12:39 PM EDT Result Hoda Rojas MD LAB BLOOD ORDERABLES Final Resu lt Performing Organization Address City/[facility] Co de Phone Number HEALTHCARE LAB [address] [place] [address] * (ABNORMAL) Hepatitis C Antibody (07/23/2023 8:37 AM EDT) Hepatitis C Antibody Positive( A) Negative 07/23/2023 2:24 PM EDT [facility] Comment:This specimen is sarah ng sent for confirmation by RT-PCR. Blood Venous blood specimen / Unknown Venipuncture / Unknown 07/23/2023 8:37 AM EDT 07/23/2023 12:38 PM EDT Result Hoda Rojas MD LAB BLOOD ORDERABLES Final Resu lt Performing Organization Address City/[facility] Co de Phone Number [facility] [address] [place] [address] from Last 3 Months or Most Recently Relevant to Health Maintenance Additional Health Concerns Active Problems Noted Date Diagnosed Date CPM S22 PP LABOR (OBSTETRICS) 08/16/2023 Insurance Advance Directives * Full Code (Latest Code Status on File) Date Activated Date Inactivated Comments 02/15/2024 3:52 PM 02/18/2024 5:18 PM Question Answer Comments Patient has decision-making capacity? Yes Care Teams Chaplain Resident Relationship Specialty Start Date End Date Pcp, No [address] [place] [address] PCP - General Family Medicine 09/21/23
[2025-02-12 14:00] VITALS: BP 129/84; PULSE 104; RESP 18; TEMP 36.7; O2SAT 99; BMI 46.5
[2025-02-12 14:07] LABS: Microscopic, Urine URINE MICROSCOPIC (MICROSCOPIC)
[2025-02-12 14:14] LABS: Color,Urine YELLOW (Yellow); Glucose,Urine (UA) Negative (Negative); Ketones,Urine 3+ (Negative); Leukocyte Esterase,Urine Negative (Negative); PH,Urine 6.0 (5.0-8.5); Protein,Urine TRACE (Negative); Specific Gravity, Urine >= 1.030 (1.005-1.030); Urobilinogen,Urine 1.0 EU/dl (0.2)
[2025-02-12 14:29] LABS: Bilirubin,Urine 2+ (Negative)
[2025-02-12 14:31] LABS: Bacteria,Urine 3+ /lpf; Calcium Oxalate Crystals,Urine Trace /lpf; Squamous Epithelial Cell,Urine 20-50 #/hpf (0-5)
[2025-02-12] MEDS: BETAMETHASONE ACET/PHOS 6MG/ML 5ML MDV 12 MG IM (14:32)
== END 2025-02-12 15:37 | disposition home or self-care (01) ==
LOC: OBOUT 12:46 → OB 12:47 → 2ND 15:12
PROVIDERS: Visit Provider Obstetrics & Gynecology
DX: Z34.83 Encounter for supervision of other normal pregnancy, third trimester (principal); Z3A.33 33 weeks gestation of pregnancy
CPT/HCPCS: 81001; 87086; 99211; 99212; J0702

== ENCOUNTER 2025-02-13 14:15 | Outpatient (CLI) | payer MEDICAID, SELFPAY ==
--- OUTSIDE RECORDS SUMMARY | 2025-01-01 14:31 | XMS_ITS | Encounter Summary ---
[facility] Address [address] [place] [address] Care Team Providers Care Grants Officer Name Role Phone Provider, No Known Primary Care Provider Unavail able Reason for Visit * Diagnostic Imaging (Routine) - Authorized Specialty Diagnoses / Procedures Referred By Contmarlen t Referred To Contact Radiology Diagnoses Chronic hypertension during , antepartum Dichorionic diamniotic twin , antepartum Procedures [facility] Taylor, David Pearl MD [address] [place] [address] Phone: tel: fax: [facility] US PER DIAG CTR [address] [place] [address] Phone: tel: Referral ID Status Reason Start Date Expiration Date V isits Requested Visits Authorized [id number] Authorized 10/31/2024 01/30/2026 4 4 Encounter Details Date Type Department Care Team (Latest Contact Info) Description 01/01/2025 2:31 PM EST - 01/01/2025 11:59 PM EST Hospital Encounter [facility] US PER DIAG CTR [address] [place] [address] Kayli Cedeno, [address] [place] [address] [facility] [address] [id number] Discharge Disposition: Home or Self Care Social [...] Procedure Name Priority Date/Time Associated Diagnosis Comments [facility] Routine 01/01/2025 3:27 PM EST Chronic hypertension during , antepartum Dichorionic diamniotic twin , antepartum documented in this encounter Results * [facility] (01/01/2025 3:27 PM EST) Anatomical Region Laterality Modality Ultrasound 01/01/2025 2:55 PM EST Narrative 01/02/2025 7:32 PM EST PAT NAME: ROXANA NIETO MED REC#: [id number] DA: [id number] PAT GEND: F PAT TYPE: O EXAM AWILDA: [id number] REF PHYS KAYLI CEDENO Comparison Studies The [...] EFW (oz) 11 oz EFW by: Hadlock (PYK-CD-MM-FL) Extended Cav. septi pel. tr 7.1 mm Ripsawyer 6.4 mm CM 6.4 mm 42% Nicolaides [...] EFW (oz) 14 oz EFW by: Hadlock (XLS-GV-VC-FL) Extended Cav. septi pel. tr 6.4 mm Ripsawyer 6.8 mm CM 8.2 mm 87% Nicolaides [...] Heart / Thorax 3-vessel view: Appears normal 5-rznqml-kknfabr view: Appears normal Cord insertion: Appears normal [...] doppler normal x 2 Coding ======= Description: 10259-34 Follow Up Ultrasound Description: 56715-18-61 Follow up Ultrasound additional fetus Fabric Designer: RT Geoff Hines , [facility] Physician: Radha Burnett MD, FACOG Electronically signed by: Radha Burnett MD, FACOG at: 19:32 Procedure Note Radha Burnett MD - 01/02/2025 PAT NAME: ROXANA NIETO MED REC#: [id number] DA: [id number] PAT GEND: F PAT TYPE: O EXAM AWILDA: [id number] REF PHYS KAYLI CEDENO Comparison Studies The findings of this study are compared to the prior ultrasound studydated 11/28/24 Patient Status Outpatient Indication ======== Di/Di twin . AMA. MO BMI 46. CHTN. Previous c/s x 3. H/Opreeclampsia. H/O abruption. 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 Maternal Assessment Ujbknj040 cm Height (ft)5 ft Height (in)9 in Ybyniy585 kg Weight (lb)305 lb BMI45.04 kg/m Method ======= Transabdominal ultrasound examination. View: limited by multiplegestation. Limited by patient body habitus ========= Twin . Dichorionic-diamniotic. Number of fetuses: 2 Dating ====== Method of dating:based on stated BONNIE GA by prior uvugvdcdhv20 w + 6 d BONNIE by prior [...] GA27 w + 6 d Assigned BONNIE:03/27/2025 jxxtsa441 d Biometry Standard BPD68.8 mm 27w 5d 32% Hadlock OFD97.0 mm 31w 2d >99% Nyla HC266.3 mm 29w 0d 56% Hadlock Cerebellum tr37.1 mm 30w 4d 99% Hill AC243.3 mm 28w 4d 65% Hadlock Femur52.2 mm 27w 6d 34% Hadlock Dqwaqkg07.4 mm 29w 4d 87% Nyla HC / AC1.09 EFW1,207 g 28w 0d 55% Hadlock EFW discordance7.4 % EFW (lb)2 lb EFW (oz)11 oz EFW by:Hadlock (YAT-QI-XM-FL) Extended Cav. septi pel. tr7.1 mm Vp6.4 mm CM6.4 mm 42% Nicolaides Head / Face / Neck Cephalic index0.71 <1% Nicolaides Extremities / Bony Struc FL / BPD0.76 FL / HC0.20 FL / AC0.21 Other Structures LQS506 bpm Biometry Standard BPD71.2 mm 28w 4d 63% Hadlock OFD91.8 mm 29w 4d 90% Nyla HC260.5 mm 28w 2d 34% Hadlock Cerebellum tr37.0 mm 30w 3d 99% Hill AC252.7 mm 29w 3d 86% Hadlock Femur53.3 mm 28w 2d 48% Hadlock Yqvwdfo41.5 mm 30w 0d 94% Nyla HC / AC1.03 EFW1,303 g 28w 4d 77% Hadlock EFW discordance7.4 % EFW (lb)2 lb EFW (oz)14 oz EFW by:Hadlock (CFO-PG-TK-FL) Extended Cav. septi pel. tr6.4 mm Vp6.8 mm CM8.2 mm 87% Nicolaides Head / Face / Neck Cephalic index0.78 36% Nicolaides Extremities / Bony Struc FL / BPD0.75 FL / HC0.20 FL / AC0.21 Other Structures HYF581 bpm General Evaluation Cardiac activity present. FHR [...] normal Heart / Thorax 3-vessel view:Appears normal 9-hzcxdb-izgmyio view:Appears normal Cord insertion:Appears normal Stomach:Appears normal [...] UA doppler normal x 2 Coding ======= Description:12725-40 Follow Up Ultrasound Description:86108-96-97 Follow up Ultrasound additional fetus Fabric Designer: RT Geoff Hines , [facility] Physician: Radha Burnett MD, FACOG Electronically signed by: Radha Burnett MD, FACOG at: 1119:32 us David Taylor MD IMG US ORDERABLES Final Result documented in this encounter Visit Diagnoses Not on filedocumented in this encounter Care Teams Grants Officer Relationship Specialty Start Date End Date Provider, No Known [facility] [place] [address] PCP - General 08/10/24 documented as of this encounter
--- OUTSIDE RECORDS SUMMARY | 2025-01-01 15:15 | XMS_ITS | Encounter Summary ---
Author Organization [facility] Address [address] [place] [address] Care Team Providers Care Wool Scourer Name Role Phone Provider, No Known Primary Care Provider Unavail able Reason for Visit * Reason Comments Di/Di twins; MO; AMA; CHTN; Prev C/W scratcher niosynostosis; Prev Encounter Details Date Type Department Care Team (Late st Contact Info) Description 01/01/2025 3:15 PM EST Office Visit [facility] MATERNAL MEDICINE [address] [place] [phone] Radha Burnett MD [address] [place] [address] Dichorionic diamniotic twin , antepartum (Primary Dx); [...] kg (305 lb 9.6 oz) 01/01/2025 2:48 P M EST Height 180.3 cm (5' 11 ) 01/01/2025 2:50 PM EST Body Mass Index 42.62 01/01/2025 2:48 PM EST documented in this encounter Progress Notes * Christel Park RN - 01/01/2025 3:15 PM EST F/U with Dr. Cedeno 01/09/25. NIPT insufficient DNA. Pt reports +FM x 2. Reports occasional [place] Cunningham contractions. Denies vaginal bleeding, leakingof fluid. * Rdaha Burnett MD - 01/01/2025 3:15 PM EST Patient seen in Diagnostic Center today for ultrasound. Please see ultrasound report under imaging tab of patient chart in [facility] (Viewpoint report). Radha Burnett MD documented in this encounter Plan of Treatment Not on file documented as of this encounter Visit Diagnoses Diagnosis Dichorionic diamniotic twin , antepartum- Primary Chronic hypertension during , antepartum documented in this encounter Care Teams Wool Scourer Relationship Specialty Start Date End Date Provider, No Known [facility] [place] [address] PCP - General 08/10/24 documented as of this encounter
--- OUTSIDE RECORDS SUMMARY | 2025-01-29 14:43 | XMS_ITS | Encounter Summary ---
[facility] Organization [facility] Address [address] [place] [address] Care Team Providers Care Clay Products Machine Operator Name Role Phone Provider, No Known Primary Care Provider Unavail able Reason for Visit * Diagnostic Imaging (Routine) - Authorized Specialty Diagnoses / Procedures Referred By Contmarlen t Referred To Contact Radiology Diagnoses Chronic hypertension during , antepartum Dichorionic diamniotic twin , antepartum Procedures [facility] Taylor, David Pearl MD [address] [place] [address] Phone: tel: fax: [facility] DI[facility] [address] [place] [address] Phone: tel: Referral ID Status Reason Start Date Expiration Date V isits Requested Visits Authorized [id number] Authorized 10/31/2024 01/30/2026 4 4 Encounter Details Date Type Department Care Team (Latest Contact Info) Description 01/29/2025 2:43 PM EST - 01/29/2025 11:59 PM EST Hospital Encounter [facility] DI[facility] [address] [place] [address] Kayli Cedeno, [address] [place] [address] [address] [phone] Discharge Disposition: Home or Self Care Social [...] Name Priority Date/Time Associated Diagnosis Comments [facility] Routine 01/29/2025 3:54 PM EST Chronic hypertension during , antepartum Dichorionic diamniotic twin , antepartum documented in this encounter Results * [facility] (01/29/2025 3:54 PM EST) Anatomical Region Laterality Modality Ultrasound 01/29/2025 3:02 PM EST Narrative 01/29/2025 4:01 PM EST PAT NAME: ORXANA NIETO MED REC#: [id number] DA: [id number] PAT GEND: F PAT TYPE: O EXAM AWILDA: [id number] REF PHYS KAYLI CEDENO Comparison Studies The [...] EFW (oz) 10 oz EFW by: Hadlock (ZNQ-OQ-RF-FL) Extended Cav. septi pel. tr 7.9 mm Front Desk Auxiliary 6.4 mm CM 6.3 mm 23% Nicolaides [...] EFW (oz) 10 oz EFW by: Hadlock (FFM-AU-FO-FL) Extended Nasal bone 10.8 mm Head / [...] Normal Heart / Thorax 3-vessel view: Normal 9-ubkkac-icnecsq view: normal Cord insertion: Normal Stomach: Appears [...] Heart / Thorax 3-vessel view: Appears normal 0-uvbefj-lwammar view: Appears normal Cord insertion: Appears normal [...] fetus Description: BPP without NST additional fetus Flight Software Test Engineer: Jennifer Collazo RDMS Physician: Radha Burnett MD, FACOG Electronically signed by: Radha Burnett MD, FACOG at: 16:01 Procedure Note Radha Burnett MD - 01/29/2025 PAT NAME: ROXANA NIETO [facility] REC#: [id number] DA: [id number] PAT GEND: F PAT TYPE: O EXAM AWILDA: [id number] REF PHYS KAYLI CEDENO Comparison Studies The findings of this study are compared to the prior ultrasound studydated Patient Status Outpatient Indication ======== Di/Di twin . AMA. MO BMI 44. CHTN. Previous c/s x 3. H/Opreeclampsia. H/O abruption. 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 Maternal Assessment Ifwuse434 cm Height (ft)5 ft Height (in)9 in Ugrjtb716 kg Weight (lb)300 lb BMI44.30 kg/m Method ======= Transabdominal ultrasound examination. View: limited by multiplegestation ========= Twin . Dichorionic-diamniotic. Number of fetuses: 2 Dating ====== Method of dating:based on stated BONNIE GA by prior [id number] w + 6 d BONNIE by prior [...] GA31 w + 6 d Assigned BONNIE:03/27/2025 [id number] d Biometry Standard BPD77.0 mm 30w 6d 15% Hadlock MHR078.0 mm 35w 2d 98% Nyla HC295.7 mm 32w 5d 34% Hadlock Cerebellum tr38.1 mm 31w 1d 14% Hill AC301.0 mm 34w 0d 95% Hadlock Femur61.0 mm 31w 5d 32% Hadlock Cqpcoxz01.8 mm 31w 2d 35% Nyla HC / AC0.98 EFW2,085 g 32w 4d 74% Hadlock EFW discordance0.3 % EFW (lb)4 lb EFW (oz)10 oz EFW by:Hadlock (KQE-HH-JE-FL) Extended Cav. septi pel. tr7.9 mm Vp6.4 mm CM6.3 mm 23% Nicolaides Nasal bone10.6 mm Head / Face / Neck Cephalic index0.72 1% Nicolaides Extremities / Bony Struc FL / BPD0.79 FL / HC0.21 FL / AC0.20 Other Structures JCL485 bpm Biometry Standard BPD79.4 mm 31w 6d 41% Hadlock LBX733.2 mm 34w 4d 94% Nyla HC303.8 mm 33w 5d 66% Hadlock AC287.3 mm 32w 5d 74% Hadlock Femur64.8 mm 33w 3d 79% Hadlock Omfnbka76.4 mm 32w 2d 61% Nyla HC / AC1.06 EFW2,090 g 32w 5d 74% Hadlock EFW discordance0.3 % EFW (lb)4 lb EFW (oz)10 oz EFW by:Hadlock (NGA-AU-MS-FL) Extended Nasal bone10.8 mm Head / Face / Neck Cephalic index0.75 11% Nicolaides Extremities / Bony Struc FL / BPD0.82 FL / HC0.21 FL / AC0.23 Other Structures SON247 bpm General Evaluation Cardiac activity present. FHR [...] LVOT view:Normal Heart / Thorax 3-vessel view:Normal 9-jerhhm-bcsmdoz view:normal Cord insertion:Normal Stomach:Appears normal Kidneys:Appears normal Bladder:Appears normal Gender:male Wants to know gender:yes Anatomy Cranium:Normal Cavum septi pellucidi:documented previously Cerebellum:documented previously Cisterna magna:documented previously Head / Neck Rt lateral ventricle:documented previously Lt lateral ventricle:documented previously Lips:Normal Profile:Normal Nose:Normal 4-chamber view:Appears normal RVOT view:Appears normal LVOT view:documented previously Heart / Thorax 3-vessel view:Appears normal 8-ryvvhl-uvtpqxp view:Appears normal Cord insertion:Appears normal Stomach:Appears normal [...] fetus Description: BPP without NST additional fetus Flight Software Test Engineer: Jennifer Collazo RDMS Physician: Radha Burnett MD, FACOG Electronically signed by: Radha Burnett MD, FACOG at: 16:01 us David Taylor MD IMG US ORDERABLES Final Result documented in this encounter Visit Diagnoses Not on filedocumented in this encounter Care Teams Clay Products Machine Operator Relationship Specialty Start Date End Date Provider, [place] [address] PCP - General 08/10/24 documented as of this encounter
--- OUTSIDE RECORDS SUMMARY | 2025-01-29 15:15 | XMS_ITS | Encounter Summary ---
Author Organization [facility] Address [address] [place] [address] Care Team Providers Care Industrial Gas Servicer Helper Name Role Phone Provider, No Known Primary Care Provider Unavail able Reason for Visit * Reason Comments AMA, di/di twins, MO, CHTN, HX C/S x3 Encounter Details Date Type Department Care Team (Late st Contact Info) Description 01/29/2025 3:15 PM EST Office Visit [facility]ERNAL MEDIC[facility] [address] [facility] [address] [place], [place] [address] Radha Burnett MD [address] [place] [address] Chronic hypertension during , antepartum (Primary Dx); Dichorionic diamniotic twin , antepartum; Antepartum multigravida of advanced maternal age Social [...] Sign Reading Time Taken Comments Blood Pressure 135/85 01/29/2025 2:48 PM EST Pulse - - Temperature - - Respiratory Rate - - Oxygen Saturation - - Inhaled Oxygen Concentration - - Weight 136 kg (299 lb 12.8 oz) 01/29/2025 2:48 P M EST Height - - Body Mass Index 41.81 01/01/2025 2:50 PM EST documented in this encounter Progress Notes * Radha Burnett MD - 01/29/2025 4:02 PM ESTAssociated Problem(s): Antepartum multigravida of advanced maternal age Appropriate and concordant growth BP well controlled Recommend twice weekly testing starting at 32 weeks GA Delivery planned at 37 weeks GA Follow up PRN * Taryn Nuno RN - 01/29/2025 3:15 PM EST Denies vaginal bleeding, leaking fluid, and contractions Endorses normal movement with both NIPT insufficient DNA Next OB follow up appointment with Natalie Cedeno DO on 02/01/25 * Radha Burnett MD - 01/29/2025 3:15 PM EST Maternal/ Medicine Follow Up Note Name: Roxana Fried : 1985 Referring Provider: Natalie Cedeno DO Chief Complaint AMA, di/di twins, MO, CHTN, HX C/S x3 Subjective History of Present Illness: Roxana Fried is a 39 y.o. 31w6d who presents today for follow up BONNIE: Estimated Date of Delivery: 03/27/25 ROS: As noted in HPI. Objective Vital Signs BP 135/85 Wt 136 kg (299 lb 12.8 oz) LMP 06/11/2024 Estimated body mass index is 41.81 kg/m?? as calculated from the following: Height as of 01/01/25: 180.3 cm (71 ). Weight as of this encounter: 136 kg (299 lb 12.8 oz). Ultrasound Impression: See viewpoint Assessment and Plan Roxana Fried is a 39 y.o. 31w6d Diagnoses and all orders for this visit: 1. Chronic hypertension during , antepartum (Primary) 2. Dichorionic diamniotic twin , antepartum 3. Antepartum multigravida of advanced maternal age Assessment & Plan: Appropriate and concordant growth BP well controlled Recommend twice weekly testing starting at 32 weeks GA Delivery planned at 37 weeks GA Follow up PRN Follow Up No follow-ups on file. I spent 10 minutes caring for the [...] other procedures such as amniocentesis or CVS. Radha Burnett MD FACOG Maternal Medicine, [facility] 01/29/2025 documented in this encounter Plan of Treatment Not on file documented as of this encounter Visit Diagnoses Diagnosis Chronic hypertension during , antepartum- Primary Dichorionic diamniotic twin , antepartum Antepartum multigravida of advanced maternal age documented in this encounter Care Teams Industrial Gas Servicer Helper Relationship Specialty Start Date End Date Provider, [place] [address] PCP - General 08/10/24 documented as of this encounter
--- OUTSIDE RECORDS SUMMARY | 2025-02-13 14:20 | XMS_ITS | Encounter Summary ---
Author Organization [facility] Address [address] [place] [address] Care Team Providers Care Compliance Professional Name Role Phone Provider, No Known Primary [...] on filedocumented in this encounter Care Teams Compliance Professional Relationship Specialty Start Date End Date Provider, No Known [facility] [place] [address] PCP - General 08/10/24 documented as of this encounter
--- OUTSIDE RECORDS SUMMARY | 2025-02-13 14:20 | XMS_ITS | Encounter Summary ---
Author Organization [facility] Address [address] [place] [address] Care Team Providers Care Accountant Supervisor Name Role Phone Provider, No Known [...] on filedocumented in this encounter Care Teams Accountant Supervisor Relationship Specialty Start Date End Date Provider, No Known [place] [place] [address] PCP - General 08/10/24 documented as of this encounter
--- OUTSIDE RECORDS SUMMARY | 2025-02-13 14:20 | XMS_ITS | Clinical Summary ---
Author Organization [facility] Address [address] [place] [address] Care Team Providers Care Leasing Specialist Name Role Phone Provider, No Known Primary [...] older obese women and in women of -[place]raqi descent. Preexisting hypertension is a recognized risk [...] 01/29/2025 3:15 PM EST Office Visit [facility] [address] [phone] Radha Burnett MD Chronic hypertension during , antepartum (Primary Dx); Dichorionic diamniotic twin , antepartum; Antepartum multigravida of advanced maternal age 1201/29/2025 2:43 PM EST - 01/29/2025 11:59 PM EST Hospital Encounter [facility] [address] [place] [phone] Kayli Cedeno, Discharge Disposition: Home or Self Care 01/29/2025 Travel 01/01/2025 3:15 PM EST Office Visit [facility] MEDIC[facility] [address] [phone] Radha Burnett MD Dichorionic diamniotic twin , antepartum (Primary Dx); Chronic hypertension during , antepartum 01/01/2025 2:31 PM EST - 01/01/2025 11:59 PM EST Hospital Encounter [facility] [address] [place] [phone] Kayli Cedeno, Discharge Disposition: Home or Self Care 01/01/2025 Travel 11/28/2024 2:15 PM EDT Office Visit [facility] MEDIC[facility] [address] [phone] Wayne Daniels MD Dichorionic diamniotic twin , antepartum (Primary Dx); Morbid obesity with BMI of 45.0-49.9, adult; Chronic hypertension during , antepartum; Family history of congenital anomaly; 23 weeks gestation of ; Antepartum multigravida of advanced maternal age 1011/28/2024 2:12 PM EDT - 11/28/2024 11:59 PM EDT Hospital Encounter [facility] [address] [place] [address] Kayil Cedeno DO Discharge Disposition: Home or Self [...] Name Priority Date/Time Associated Diagnosis Comments [facility] Routine 01/29/2025 3:54 PM EST Chronic hypertension during , antepartum Dichorionic diamniotic twin , antepartum [facility] Routine 01/01/2025 3:27 PM EST Chronic hypertension during , antepartum Dichorionic diamniotic twin , antepartum [facility] Routine 11/28/2024 3:05 PM EDT Chronic hypertension during , antepartum Dichorionic diamniotic twin , antepartum from Last 3 Months Results * [facility] (01/29/2025 3:54 PM EST) Only the most recent of3 resultswithin the time period is included. Anatomical Region Laterality Modality Ultrasound 01/29/2025 3:02 PM EST Narrative 01/29/2025 4:01 PM EST PAT NAME: ROXANA NIETO [facility] REC#: [id number] DA: [id number] PAT GEND: F PAT TYPE: O EXAM AWILDA: [id number] REF PHYS KAYLI CEDENO Comparison Studies The [...] EFW (oz) 10 oz EFW by: Hadlock (DQT-BQ-TY-FL) Extended Cav. septi pel. tr 7.9 mm Ferryboat Operator 6.4 mm CM 6.3 mm 23% Nicolaides [...] EFW (oz) 10 oz EFW by: Hadlock (ECE-DW-GX-FL) Extended Nasal bone 10.8 mm Head / [...] Normal Heart / Thorax 3-vessel view: Normal 9-ahyiyo-batqsjl view: normal Cord insertion: Normal Stomach: Appears [...] Heart / Thorax 3-vessel view: Appears normal 8-ewicig-ahnsmvl view: Appears normal Cord insertion: Appears normal [...] fetus Description: BPP without NST additional fetus Stallion Keeper: Jennifer Collazo RDMS Physician: Radha Burnett MD, FACOG Electronically signed by: Radha Burnett MD, FACOG at: 16:01 Procedure Note Radha Burnett MD - 01/29/2025 PAT NAME: ROXANA NIETO [facility] REC#: [id number] DA: [id number] PAT GEND: F PAT TYPE: O EXAM AWILDA: [id number] REF PHYS KAYLI CEDENO Comparison Studies The findings of this study are compared to the prior ultrasound studydated Patient Status Outpatient Indication ======== Di/Di twin . AMA. MO BMI 44. CHTN. Previous c/s x 3. H/Opreeclampsia. H/O abruption. 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 Maternal Assessment Yzftix519 cm Height (ft)5 ft Height (in)9 in Olfotv702 kg Weight (lb)300 lb BMI44.30 kg/m Method ======= Transabdominal ultrasound examination. View: limited by multiplegestation ========= Twin . Dichorionic-diamniotic. Number of fetuses: 2 Dating ====== Method of dating:based on stated BONNIE GA by prior dqtuxptsrx42 w + 6 d BONNIE by prior [...] GA31 w + 6 d Assigned BONNIE:03/[birth year]/2025 d Biometry Standard BPD77.0 mm 30w 6d 15% Hadlock FQN312.0 mm 35w 2d 98% Nyla HC295.7 mm 32w 5d 34% Hadlock Cerebellum tr38.1 mm 31w 1d 14% Hill AC301.0 mm 34w 0d 95% Hadlock Femur61.0 mm 31w 5d 32% Hadlock Grujyhs02.8 mm 31w 2d 35% Nyla HC / AC0.98 EFW2,085 g 32w 4d 74% Hadlock EFW discordance0.3 % EFW (lb)4 lb EFW (oz)10 oz EFW by:Hadlock (EGN-QQ-ZM-FL) Extended Cav. septi pel. tr7.9 mm Vp6.4 mm CM6.3 mm 23% Nicolaides Nasal bone10.6 mm Head / Face / Neck Cephalic index0.72 1% Nicolaides Extremities / Bony Struc FL / BPD0.79 FL / HC0.21 FL / AC0.20 Other Structures PCO838 bpm Biometry Standard BPD79.4 mm 31w 6d 41% Hadlock KZH726.2 mm 34w 4d 94% Nyla HC303.8 mm 33w 5d 66% Hadlock AC287.3 mm 32w 5d 74% Hadlock Femur64.8 mm 33w 3d 79% Hadlock Wornsqi09.4 mm 32w 2d 61% Nyla HC / AC1.06 EFW2,090 g 32w 5d 74% Hadlock EFW discordance0.3 % EFW (lb)4 lb EFW (oz)10 oz EFW by:Hadlock (AKT-TQ-PV-FL) Extended Nasal bone10.8 mm Head / Face / Neck Cephalic index0.75 11% Nicolaides Extremities / Bony Struc FL / BPD0.82 FL / HC0.21 FL / AC0.23 Other Structures NTA198 bpm General Evaluation Cardiac activity present. FHR [...] LVOT view:Normal Heart / Thorax 3-vessel view:Normal 7-cllycr-lamfspy view:normal Cord insertion:Normal Stomach:Appears normal Kidneys:Appears normal Bladder:Appears normal Gender:male Wants to know gender:yes Anatomy Cranium:Normal Cavum septi pellucidi:documented previously Cerebellum:documented previously Cisterna magna:documented previously Head / Neck Rt lateral ventricle:documented previously Lt lateral ventricle:documented previously Lips:Normal Profile:Normal Nose:Normal 4-chamber view:Appears normal RVOT view:Appears normal LVOT view:documented previously Heart / Thorax 3-vessel view:Appears normal 2-mwgexo-jatduwn view:Appears normal Cord insertion:Appears normal Stomach:Appears normal [...] fetus Description: BPP without NST additional fetus Stallion Keeper: Jennifer Collazo RDDC Physician: Radha Burnett MD, FACOG Electronically signed by: Radha Burnett MD, FACOG at: 0816:01 us David Taylor MD [email or web address]] ORDERABLES Final Result from Last 3 Months Insurance [employer] MEDICAID [place] Care Teams Leasing Specialist Relationship Specialty Start Date End Date Provider, No Known [place] [address] PCP - General 08/10/24
--- OUTSIDE RECORDS SUMMARY | 2025-02-13 14:21 | XMS_ITS | Clinical Summary ---
Author Organization Healthcare Address [address] [place] [address] Care Team Providers Care Safety Scientist Name Role Phone Pcp, No Primary Care [...] testing 4 Active Lancets (OneTouch Delica Plus Oztbgp68K) [facility] USE TO TEST 4 TIMES A DAY [...] How often do you attend chur or bahai services? More than 4 times per year 08/16/2023 Do you belong to any clubs o r organizations such as confucianist groups, unions, fraternal or athletic groups, or [...] Recorded Patient Health Questionnaire-2 Score 0 02/03/2024 [facility] [place] of Occupat ional Health - Occupational Stress [...] place to sleep or slept in a retirement (including now)? No 08/16/2023 [place] Depression Scale Answer Date Recorded [place] Depression Scale Total 6 12/07/2022 The thought [...] any time in the past 12 m [facility], were you homeless or living in a retirement (including now)? No 02/24/2024 Utilities Answer Date [...] of 2 - PCV) 2004 [facility]-HPV/Cotest 11/23/2015 RAW-TDMBO-02 Vaccine (1 - 2024- season) 2024 [facility]-Influenza [...] Non Reactive 07/23/2023 1:19 PM EDT [facility] Comment:Screening for HIV 1 & 2 antibodies, and P24 antigen is NONREACTIVE. No confirmatory testing is required. Blood Venous blood specimen / Unknown Venipuncture / Unknown 07/23/2023 8:37 AM EDT 07/23/2023 12:39 PM EDT Result Hoda Rojas MD LAB BLOOD ORDERABLES Final Resu lt Performing Organization Address City/[facility] Co de Phone Number HEALTHCARE LAB [address] [place] [address] * (ABNORMAL) Hepatitis C Antibody (07/23/2023 8:37 AM EDT) Hepatitis C Antibody Positive( A) Negative 07/23/2023 2:24 PM EDT [facility] Comment:This specimen is sarah ng sent for confirmation by RT-PCR. Blood Venous blood specimen / Unknown Venipuncture / Unknown 07/23/2023 8:37 AM EDT 07/23/2023 12:38 PM EDT Result Hoda Rojas MD LAB BLOOD ORDERABLES Final Resu lt Performing Organization Address City/[facility] Co de Phone Number [facility] [address] [place] [address] from Last 3 Months or Most Recently Relevant to Health Maintenance Additional Health Concerns Active Problems Noted Date Diagnosed Date CPM S22 PP LABOR (OBSTETRICS) 08/16/2023 Insurance Advance Directives * Full Code (Latest Code Status on File) Date Activated Date Inactivated Comments 02/15/2024 3:52 PM 02/18/2024 5:18 PM Question Answer Comments Patient has decision-making capacity? Yes Care Teams Safety Scientist Relationship Specialty Start Date End Date Pcp, No [address] [place] [address] PCP - General Family Medicine 09/21/23
[2025-02-13] MEDS: BETAMETHASONE ACET/PHOS 6MG/ML 5ML MDV 12 MG IM (14:40)
[2025-02-13 14:47] VITALS: BP 131/95; PULSE 95; RESP 16; TEMP 36.6; O2SAT 96
== END 2025-02-13 23:59 | disposition home or self-care (01) ==
LOC: INF 14:16
PROVIDERS: Visit Provider Obstetrics & Gynecology
DX: O30.043 Twin pregnancy, dichorionic/diamniotic, third trimester (principal); O34.219 Maternal care for unspecified type scar from previous cesarean delivery; O09.293 Supervision of pregnancy with other poor reproductive or obstetric history, third trimester; O10.913 Unspecified pre-existing hypertension complicating pregnancy, third trimester; O09.523 Supervision of elderly multigravida, third trimester; O99.213 Obesity complicating pregnancy, third trimester; E66.9 Obesity, unspecified; G43.909 Migraine, unspecified, not intractable, without status migrainosus; Z86.32 Personal history of gestational diabetes; Z3A.33 33 weeks gestation of pregnancy
CPT/HCPCS: 96372; J0702

== ENCOUNTER 2025-02-16 14:54 | Outpatient (CLI) | payer MEDICAID, SELFPAY ==
--- OUTSIDE RECORDS SUMMARY | 2025-01-01 14:31 | XMS_ITS | Encounter Summary ---
[facility] Address [address] [place] [address] Care Team Providers Care Radiation Oncology Manager Name Role Phone Provider, No Known Primary Care Provider Unavail able Reason for Visit * Diagnostic Imaging (Routine) - Authorized Specialty Diagnoses / Procedures Referred By Contmarlen t Referred To Contact Radiology Diagnoses Chronic hypertension during , antepartum Dichorionic diamniotic twin , antepartum Procedures [facility] Taylor, David Pearl MD [address] [place] [address] Phone: tel: fax: [facility] PER DIAG [facility] [address] [place] [address] Phone: tel: Referral ID Status Reason Start Date Expiration Date V isits Requested Visits Authorized [id number] Authorized 10/31/2024 01/30/2026 4 4 Encounter Details Date Type Department Care Team (Latest Contact Info) Description 01/01/2025 2:31 PM EST - 01/01/2025 11:59 PM EST Hospital Encounter [facility] PER DIAG [facility] [address] [place] [address] Kayli Cedeno, [address] [place] [address] [facility] [address] [place] [address] Discharge Disposition: Home or Self Care Social [...] Procedure Name Priority Date/Time Associated Diagnosis Comments [facility] Routine 01/01/2025 3:27 PM EST Chronic hypertension during , antepartum Dichorionic diamniotic twin , antepartum documented in this encounter Results * [facility] (01/01/2025 3:27 PM EST) Anatomical Region Laterality Modality Ultrasound 01/01/2025 2:55 PM EST Narrative 01/02/2025 7:32 PM EST PAT NAME: ROXANA NIETO MED REC#: [id number] DA: [id number] PAT GEND: F PAT TYPE: O EXAM AWILDA: [id number] REF PHYS KAYLI CEDENO Comparison Studies The [...] EFW (oz) 11 oz EFW by: Hadlock (TKV-QH-ZA-FL) Extended Cav. septi pel. tr 7.1 mm Radiologic Electronic Specialist 6.4 mm CM 6.4 mm 42% Nicolaides [...] EFW (oz) 14 oz EFW by: Hadlock (UET-PS-HT-FL) Extended Cav. septi pel. tr 6.4 mm Radiologic Electronic Specialist 6.8 mm CM 8.2 mm 87% Nicolaides [...] Heart / Thorax 3-vessel view: Appears normal 5-beeczc-vhzfnab view: Appears normal Cord insertion: Appears normal [...] doppler normal x 2 Coding ======= Description: 12568-50 Follow Up Ultrasound Description: 59450-97-82 Follow up Ultrasound additional fetus Recreational Therapist: RT Geoff Hines , [facility] Physician: Radha Burnett MD, FACOG Electronically signed by: Radha Burnett MD, FACOG at: 19:32 Procedure Note Radha Burnett MD - 01/02/2025 PAT NAME: ROXANA NIETO MED REC#: [id number] DA: [id number] PAT GEND: F PAT TYPE: O EXAM AWILDA: [id number] REF PHYS KAYLI CEDENO Comparison Studies The findings of this study are compared to the prior ultrasound studydated 11/28/24 Patient Status Outpatient Indication ======== Di/Di twin . AMA. MO BMI 46. CHTN. Previous c/s x 3. H/Opreeclampsia. H/O abruption. 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 Maternal Assessment Rpljlk141 cm Height (ft)5 ft Height (in)9 in Edleqf132 kg Weight (lb)305 lb BMI45.04 kg/m Method ======= Transabdominal ultrasound examination. View: limited by multiplegestation. Limited by patient body habitus ========= Twin . Dichorionic-diamniotic. Number of fetuses: 2 Dating ====== Method of dating:based on stated BONNIE GA by prior afeygihkdk75 w + 6 d BONNIE by prior [...] GA27 w + 6 d Assigned BONNIE:03/27/2025 jamfdf355 d Biometry Standard BPD68.8 mm 27w 5d 32% Hadlock OFD97.0 mm 31w 2d >99% Nyla HC266.3 mm 29w 0d 56% Hadlock Cerebellum tr37.1 mm 30w 4d 99% Hill AC243.3 mm 28w 4d 65% Hadlock Femur52.2 mm 27w 6d 34% Hadlock Nnilvcj61.4 mm 29w 4d 87% Nyla HC / AC1.09 EFW1,207 g 28w 0d 55% Hadlock EFW discordance7.4 % EFW (lb)2 lb EFW (oz)11 oz EFW by:Hadlock (TOC-HZ-ZE-FL) Extended Cav. septi pel. tr7.1 mm Vp6.4 mm CM6.4 mm 42% Nicolaides Head / Face / Neck Cephalic index0.71 <1% Nicolaides Extremities / Bony Struc FL / BPD0.76 FL / HC0.20 FL / AC0.21 Other Structures GPE065 bpm Biometry Standard BPD71.2 mm 28w 4d 63% Hadlock OFD91.8 mm 29w 4d 90% Nyla HC260.5 mm 28w 2d 34% Hadlock Cerebellum tr37.0 mm 30w 3d 99% Hill AC252.7 mm 29w 3d 86% Hadlock Femur53.3 mm 28w 2d 48% Hadlock Jvreqjc51.5 mm 30w 0d 94% Nyla HC / AC1.03 EFW1,303 g 28w 4d 77% Hadlock EFW discordance7.4 % EFW (lb)2 lb EFW (oz)14 oz EFW by:Hadlock (BTM-SG-GH-FL) Extended Cav. septi pel. tr6.4 mm Vp6.8 mm CM8.2 mm 87% Nicolaides Head / Face / Neck Cephalic index0.78 36% Nicolaides Extremities / Bony Struc FL / BPD0.75 FL / HC0.20 FL / AC0.21 Other Structures LDN577 bpm General Evaluation Cardiac activity present. FHR [...] normal Heart / Thorax 3-vessel view:Appears normal 6-dyleer-bimbmtn view:Appears normal Cord insertion:Appears normal Stomach:Appears normal [...] UA doppler normal x 2 Coding ======= Description:10323-58 Follow Up Ultrasound Description:51356-90-60 Follow up Ultrasound additional fetus Recreational Therapist: RT Geoff Hines , [facility] Physician: Radha Burnett MD, FACOG Electronically signed by: Radha Burnett MD, FACOG at: 1119:32 us David Taylor MD IMG US ORDERABLES Final Result documented in this encounter Visit Diagnoses Not on filedocumented in this encounter Care Teams Radiation Oncology Manager Relationship Specialty Start Date End Date Provider, No Known [facility] [place] [address] PCP - General 08/10/24 documented as of this encounter
--- OUTSIDE RECORDS SUMMARY | 2025-01-01 15:15 | XMS_ITS | Encounter Summary ---
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 Reports occasional [place] Cunningham contractions. Denies vaginal bleeding, leakingof fluid. * Radha Burnett MD - 01/01/2025 3:15 PM EST Patient seen in Diagnostic Center today for ultrasound. Please see ultrasound report under imaging tab of patient chart in [facility] (Viewpoint report). Radha Burnett MD documented in this encounter Plan of Treatment Not on file documented as of this encounter Visit Diagnoses Diagnosis Dichorionic diamniotic twin , antepartum- Primary Chronic hypertension during , antepartum documented in this encounter Care Teams Head Mixer Relationship Specialty Start Date End Date Provider, [place] [address] PCP - General 08/10/24 documented as of this encounter
--- OUTSIDE RECORDS SUMMARY | 2025-01-29 14:43 | XMS_ITS | Encounter Summary ---
[facility] Address [address] [place] [address] Care Team Providers Care Baby Nurse Name Role Phone Provider, No Known Primary Care Provider Unavail able Reason for Visit * Diagnostic Imaging (Routine) - Authorized Specialty Diagnoses / Procedures Referred By Contmarlen t Referred To Contact Radiology Diagnoses Chronic hypertension during , antepartum Dichorionic diamniotic twin , antepartum Procedures [facility] Taylor, David Pearl MD [address] [place] [address] Phone: tel: fax: [facility] US PER DIAG CTR [address] [place] [address] Phone: tel: Referral ID Status Reason Start Date Expiration Date V isits Requested Visits Authorized [id number] Authorized 10/31/2024 01/30/2026 4 4 Encounter Details Date Type Department Care Team (Latest Contact Info) Description 01/29/2025 2:43 PM EST - 01/29/2025 11:59 PM EST Hospital Encounter [facility] US PER DIAG CTR [address] [place] [address] Kayli Cedeno, [address] [place] [address] [address] [phone] Discharge Disposition: Home or Self Care Social [...] Procedure Name Priority Date/Time Associated Diagnosis Comments [facility] Routine 01/29/2025 3:54 PM EST Chronic hypertension during , antepartum Dichorionic diamniotic twin , antepartum documented in this encounter Results * [facility] (01/29/2025 3:54 PM EST) Anatomical Region Laterality Modality Ultrasound 01/29/2025 3:02 PM EST Narrative 01/29/2025 4:01 PM EST PAT NAME: ROXANA NIETO MED REC#: [id number] DA: [id number] PAT GEND: F PAT TYPE: O EXAM AWILDA: [id number] REF PHYS KAYLI CEDENO Comparison Studies The [...] EFW (oz) 10 oz EFW by: Hadlock (RZR-TK-FZ-FL) Extended Cav. septi pel. tr 7.9 mm Retail Event And Sales Assistant 6.4 mm CM 6.3 mm 23% Nicolaides [...] EFW (oz) 10 oz EFW by: Hadlock (QYB-QT-KO-FL) Extended Nasal bone 10.8 mm Head / [...] Normal Heart / Thorax 3-vessel view: Normal 6-spxorf-alndhfq view: normal Cord insertion: Normal Stomach: Appears [...] Heart / Thorax 3-vessel view: Appears normal 2-kvrgkn-ehezzxm view: Appears normal Cord insertion: Appears normal [...] fetus Description: BPP without NST additional fetus [facility] Manager: Jennifer Collazo RDMS Physician: Radha Burnett MD, FACOG Electronically signed by: Radha Burnett MD, FACOG at: 16:01 Procedure Note Radha Burnett MD - 01/29/2025 PAT NAME: ROXANA NIETO [facility] REC#: [id number] DA: [id number] PAT GEND: F PAT TYPE: O EXAM AWILDA: [id number] REF PHYS KAYLI CEDENO Comparison Studies The findings of this study are compared to the prior ultrasound studydated Patient Status Outpatient Indication ======== Di/Di twin . AMA. MO BMI 44. CHTN. Previous c/s x 3. H/Opreeclampsia. H/O abruption. 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 Maternal Assessment Whqids573 cm Height (ft)5 ft Height (in)9 in Pabele878 kg Weight (lb)300 lb BMI44.30 kg/m Method ======= Transabdominal ultrasound examination. View: limited by multiplegestation ========= Twin . Dichorionic-diamniotic. Number of fetuses: 2 Dating ====== Method of dating:based on stated BONNIE GA by prior [id number] w + 6 d BONNIE by prior [...] GA31 w + 6 d Assigned BONNIE:03/27/2025 uemtuw014 d Biometry Standard BPD77.0 mm 30w 6d 15% Hadlock MDN817.0 mm 35w 2d 98% Nyla HC295.7 mm 32w 5d 34% Hadlock Cerebellum tr38.1 mm 31w 1d 14% Hill AC301.0 mm 34w 0d 95% Hadlock Femur61.0 mm 31w 5d 32% Hadlock Lqesvjm68.8 mm 31w 2d 35% Nyla HC / AC0.98 EFW2,085 g 32w 4d 74% Hadlock EFW discordance0.3 % EFW (lb)4 lb EFW (oz)10 oz EFW by:Hadlock (JHU-RZ-HB-FL) Extended Cav. septi pel. tr7.9 mm Vp6.4 mm CM6.3 mm 23% Nicolaides Nasal bone10.6 mm Head / Face / Neck Cephalic index0.72 1% Nicolaides Extremities / Bony Struc FL / BPD0.79 FL / HC0.21 FL / AC0.20 Other Structures [id number] bpm Biometry Standard BPD79.4 mm 31w 6d 41% Hadlock NVP547.2 mm 34w 4d 94% Nyla HC303.8 mm 33w 5d 66% Hadlock AC287.3 mm 32w 5d 74% Hadlock Femur64.8 mm 33w 3d 79% Hadlock Bhbpxba03.4 mm 32w 2d 61% Nyla HC / AC1.06 EFW2,090 g 32w 5d 74% Hadlock EFW discordance0.3 % EFW (lb)4 lb EFW (oz)10 oz EFW by:Hadlock (YZO-RD-GK-FL) Extended Nasal bone10.8 mm Head / Face / Neck Cephalic index0.75 11% Nicolaides Extremities / Bony Struc FL / BPD0.82 FL / HC0.21 FL / AC0.23 Other Structures GVS045 bpm General Evaluation Cardiac activity present. FHR [...] LVOT view:Normal Heart / Thorax 3-vessel view:Normal 0-vqtkqr-yqufajc view:normal Cord insertion:Normal Stomach:Appears normal Kidneys:Appears normal Bladder:Appears normal Gender:male Wants to know gender:yes Anatomy Cranium:Normal Cavum septi pellucidi:documented previously Cerebellum:documented previously Cisterna magna:documented previously Head / Neck Rt lateral ventricle:documented previously Lt lateral ventricle:documented previously Lips:Normal Profile:Normal Nose:Normal 4-chamber view:Appears normal RVOT view:Appears normal LVOT view:documented previously Heart / Thorax 3-vessel view:Appears normal 5-vdtgts-ljwqtwj view:Appears normal Cord insertion:Appears normal Stomach:Appears normal [...] fetus Description: BPP without NST additional fetus [facility] Manager: Jennifer Collazo RDMS Physician: Radha Burnett MD, FACOG Electronically signed by: Radha Burnett MD, FACOG at: 16:01 us David Taylor MD IMG US ORDERABLES Final Result documented in this encounter Visit Diagnoses Not on filedocumented in this encounter Care Teams Baby Nurse Relationship Specialty Start Date End Date Provider, [place] [address] PCP - General 08/10/24 documented as of this encounter
--- OUTSIDE RECORDS SUMMARY | 2025-01-29 15:15 | XMS_ITS | Encounter Summary ---
Author Organization [facility] Address [address] [place] [address] Care Team Providers Care Photograph Enlarger Name Role Phone Provider, No Known Primary Care Provider Unavail able Reason for Visit * Reason Comments AMA, di/di twins, MO, CHTN, HX C/S x3 Encounter Details Date Type Department Care Team (Late st Contact Info) Description 01/29/2025 3:15 PM EST Office Visit [facility] MATERNAL MEDICINE [address] [facility] [address] [place], [place] [phone] Radha Burnett MD [address] [place] [address] Chronic hypertension during , antepartum (Primary Dx); [...] CVS. Radha Burnett MD FACOG Maternal Medicine, [facility] 01/29/2025 documented in this encounter Plan of Treatment Not on file documented as of this encounter Visit Diagnoses Diagnosis Chronic hypertension during , antepartum- Primary Dichorionic diamniotic twin , antepartum Antepartum multigravida of advanced maternal age documented in this encounter Care Teams Photograph Enlarger Relationship Specialty Start Date End Date Provider, [place] [address] PCP - General 08/10/24 documented as of this encounter
--- OUTSIDE RECORDS SUMMARY | 2025-02-16 14:57 | XMS_ITS | Encounter Summary ---
Author Organization [facility] Address [address] [place] [address] Care Team Providers Care Roofer Name Role Phone Provider, No Known Primary [...] on filedocumented in this encounter Care Teams Roofer Relationship Specialty Start Date End Date Provider, No Known [facility] [place] [address] PCP - General 08/10/24 documented as of this encounter
--- OUTSIDE RECORDS SUMMARY | 2025-02-16 14:57 | XMS_ITS | Clinical Summary ---
Author Organization Healthcare Address [address] [place] [address] Care Team Providers Care Process Automation Engineer Name Role Phone Pcp, No Primary Care [...] testing 4 Active Lancets (OneTouch Delica Plus Ymrhao35V) [facility] USE TO TEST 4 TIMES [...] by mouth every 6 (six) hours. Under [place] law, monthly prescriptions (30 days) can be [...] How often do you attend chur or restoration services? More than 4 times per year 08/16/2023 Do you belong to any clubs o r organizations such as anglican groups, unions, fraternal or athletic groups, or [...] Recorded Patient Health Questionnaire-2 Score 0 02/03/2024 [facility] [place] of Occupat ional Health - Occupational Stress [...] place to sleep or slept in a mcc (including now)? No 08/16/2023 [place] Depression Scale Answer Date Recorded [place] Depression Scale Total 6 12/07/2022 The thought [...] any time in the past 12 m [facility], were you homeless or living in a mcc (including now)? No 02/24/2024 Utilities Answer Date [...] of 2 - PCV) 2004 [facility]-HPV/Cotest 11/23/2015 TMZ-TJTIH-80 Vaccine (1 - 2024- season) 2024 [facility]-Influenza [...] Non Reactive 07/23/2023 1:19 PM EDT [facility] Comment:Screening for HIV 1 & 2 antibodies, and P24 antigen is NONREACTIVE. No confirmatory testing is required. Blood Venous blood specimen / Unknown Venipuncture / Unknown 07/23/2023 8:37 AM EDT 07/23/2023 12:39 PM EDT Result Hoda Rojas MD LAB BLOOD ORDERABLES Final Resu lt Performing Organization Address City/[facility] Co de Phone Number HEALTHCARE LAB [address] [place] [address] * (ABNORMAL) Hepatitis C Antibody (07/23/2023 8:37 [...] Resu lt Performing Organization Address City/[facility] Co de Phone Number [facility] [address] [place] [address] from Last 3 Months or Most Recently Relevant to Health Maintenance Additional Health Concerns Active Problems Noted Date Diagnosed Date CPM S22 PP LABOR (OBSTETRICS) 08/16/2023 Insurance Advance Directives * Full Code (Latest Code Status on File) Date Activated Date Inactivated Comments 02/15/2024 3:52 PM 02/18/2024 5:18 PM Question Answer Comments Patient has decision-making capacity? Yes Care Teams Process Automation Engineer Relationship Specialty Start Date End Date Pcp, No [address] [place] [address] PCP - General Family Medicine 09/21/23
--- OUTSIDE RECORDS SUMMARY | 2025-02-16 14:57 | XMS_ITS | Clinical Summary ---
Author Organization [facility] Address [address] [place] [address] Care Team Providers Care Surveillance Observer Name Role Phone Provider, No Known Primary [...] older obese women and in women of -Malaysian descent. Preexisting hypertension is a recognized risk [...] Visit [facility] [address] [phone] Radha Burnett MD Chronic hypertension during , antepartum (Primary Dx); Dichorionic diamniotic twin , antepartum; Antepartum multigravida of advanced maternal age 1201/29/2025 2:43 PM EST - 01/29/2025 11:59 PM EST Hospital Encounter [facility] [address] [place] [phone] Kayli Cedeno, Discharge Disposition: Home or Self Care 01/29/2025 Travel 01/01/2025 3:15 PM EST Office Visit [facility] [address] [phone] Radha Burnett MD Dichorionic diamniotic twin , antepartum (Primary Dx); Chronic hypertension during , antepartum 01/01/2025 2:31 PM EST - 01/01/2025 11:59 PM EST Hospital Encounter [facility] [address] [place] [phone] Kayli Cedeno, Discharge Disposition: Home or Self Care 01/01/2025 Travel 11/28/2024 2:15 PM EDT Office Visit [facility] [address] [phone] Wayne Daniels MD Dichorionic diamniotic twin , antepartum (Primary Dx); Morbid obesity with BMI of 45.0-49.9, adult; Chronic hypertension during , antepartum; Family history of congenital anomaly; 23 weeks gestation of ; Antepartum multigravida of advanced maternal age 1011/28/2024 2:12 PM EDT - 11/28/2024 11:59 PM EDT Hospital Encounter [facility] [address] [place] [address] Kayli Cedeno DO Discharge Disposition: Home or [...] Name Priority Date/Time Associated Diagnosis Comments [facility] Routine 01/29/2025 3:54 PM EST Chronic hypertension during , antepartum Dichorionic diamniotic twin , antepartum [facility] Routine 01/01/2025 3:27 PM EST Chronic hypertension during , antepartum Dichorionic diamniotic twin , antepartum [facility] Routine 11/28/2024 3:05 PM EDT Chronic hypertension during , antepartum Dichorionic diamniotic twin , antepartum from Last 3 Months Results * [facility] (01/29/2025 3:54 PM EST) Only the most recent of3 resultswithin the time period is included. Anatomical Region Laterality Modality Ultrasound 01/29/2025 3:02 PM EST Narrative 01/29/2025 4:01 PM EST PAT NAME: ROXANA NIETO [facility] REC#: [id number] DA: [id number] PAT GEND: F PAT TYPE: O EXAM AWILDA: [id number] REF PHYS KAYLI CEDENO Comparison Studies The [...] EFW (oz) 10 oz EFW by: Hadlock (OTS-RQ-AM-FL) Extended Cav. septi pel. tr 7.9 mm Ed Manager 6.4 mm CM 6.3 mm 23% Nicolaides [...] EFW (oz) 10 oz EFW by: Hadlock (JML-PI-EW-FL) Extended Nasal bone 10.8 mm Head / [...] Normal Heart / Thorax 3-vessel view: Normal 9-ckplax-lmiulkw view: normal Cord insertion: Normal Stomach: Appears [...] Heart / Thorax 3-vessel view: Appears normal 5-ksvqfz-wgfpbwq view: Appears normal Cord insertion: Appears normal [...] fetus Description: BPP without NST additional fetus Veterans' Counselor: Jennifer Collazo RDMS Physician: Radha Burnett MD, FACOG Electronically signed by: Radha Burnett MD, FACOG at: 16:01 Procedure Note Radha Burnett MD - 01/29/2025 PAT NAME: ROXANA NIETO [facility] REC#: [id number] DA: [id number] PAT GEND: F PAT TYPE: O EXAM AWILDA: [id number] REF PHYS KAYLI CEDENO Comparison Studies The findings of this study are compared to the prior ultrasound studydated Patient Status Outpatient Indication ======== Di/Di twin . AMA. MO BMI 44. CHTN. Previous c/s x 3. H/Opreeclampsia. H/O abruption. 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 Maternal Assessment Efibpe025 cm Height (ft)5 ft Height (in)9 in Wvxyvu676 kg Weight (lb)300 lb BMI44.30 kg/m Method ======= Transabdominal ultrasound examination. View: limited by multiplegestation ========= Twin . Dichorionic-diamniotic. Number of fetuses: 2 Dating ====== Method of dating:based on stated BONNIE GA by prior [id number] w + 6 d BONNIE by prior [...] Standard BPD77.0 mm 30w 6d 15% Hadlock KWK769.0 mm 35w 2d 98% Nyla HC295.7 mm 32w 5d 34% Hadlock Cerebellum tr38.1 mm 31w 1d 14% Hill AC301.0 mm 34w 0d 95% Hadlock Femur61.0 mm 31w 5d 32% Hadlock Oacottb54.8 mm 31w 2d 35% Nyla HC / AC0.98 EFW2,085 g 32w 4d 74% Hadlock EFW discordance0.3 % EFW (lb)4 lb EFW (oz)10 oz EFW by:Hadlock (AYV-NC-KE-FL) Extended Cav. septi pel. tr7.9 mm Vp6.4 mm CM6.3 mm 23% Nicolaides Nasal bone10.6 mm Head / Face / Neck Cephalic index0.72 1% Nicolaides Extremities / Bony Struc FL / BPD0.79 FL / HC0.21 FL / AC0.20 Other Structures HPA972 bpm Biometry Standard BPD79.4 mm 31w 6d 41% Hadlock ZTM530.2 mm 34w 4d 94% Nyla HC303.8 mm 33w 5d 66% Hadlock AC287.3 mm 32w 5d 74% Hadlock Femur64.8 mm 33w 3d 79% Hadlock Oemmffm21.4 mm 32w 2d 61% Nyla HC / AC1.06 EFW2,090 g 32w 5d 74% Hadlock EFW discordance0.3 % EFW (lb)4 lb EFW (oz)10 oz EFW by:Hadlock (SMW-DR-OD-FL) Extended Nasal bone10.8 mm Head / Face / Neck Cephalic index0.75 11% Nicolaides Extremities / Bony Struc FL / BPD0.82 FL / HC0.21 FL / AC0.23 Other Structures OII345 bpm General Evaluation Cardiac activity present. FHR [...] LVOT view:Normal Heart / Thorax 3-vessel view:Normal 5-mpbnad-kktgddd view:normal Cord insertion:Normal Stomach:Appears normal Kidneys:Appears normal Bladder:Appears normal Gender:male Wants to know gender:yes Anatomy Cranium:Normal Cavum septi pellucidi:documented previously Cerebellum:documented previously Cisterna magna:documented previously Head / Neck Rt lateral ventricle:documented previously Lt lateral ventricle:documented previously Lips:Normal Profile:Normal Nose:Normal 4-chamber view:Appears normal RVOT view:Appears normal LVOT view:documented previously Heart / Thorax 3-vessel view:Appears normal 3-ysbtvj-mdpxxum view:Appears normal Cord insertion:Appears normal Stomach:Appears normal [...] fetus Description: BPP without NST additional fetus Veterans' Counselor: Jennifer Collazo RDMA Physician: Radha Burnett MD, FACOG Electronically signed by: Radha Burnett MD, FACOG at: 0816:01 us David Taylor MD [facility] ORDERABLES Final Result from Last 3 Months Insurance [employer] MEDICAID [place] Care Teams Surveillance Observer Relationship Specialty Start Date End Date Provider, No Known [facility] [place] [address] PCP - General 08/10/24
--- OUTSIDE RECORDS SUMMARY | 2025-02-16 14:57 | XMS_ITS | Encounter Summary ---
Author Organization [facility] Address [address] [place] [address] Care Team Providers Care Gis Professor Name Role Phone Provider, No Known Primary [...] on filedocumented in this encounter Care Teams Gis Professor Relationship Specialty Start Date End Date Provider, No Known [facility] [place] [address] PCP - General 08/10/24 documented as of this encounter
[2025-02-16 15:16] VITALS: BP 153/82; PULSE 106; RESP 17; TEMP 37.1; O2SAT 96; BMI 46.3
== END 2025-02-16 15:39 | disposition home or self-care (01) ==
LOC: OBOUT 14:55 → OB 14:56
PROVIDERS: Visit Provider Obstetrics & Gynecology
DX: Z34.83 Encounter for supervision of other normal pregnancy, third trimester (principal); Z3A.34 34 weeks gestation of pregnancy
CPT/HCPCS: 99211; 99212

== ENCOUNTER 2025-02-19 15:57 | Outpatient (CLI) | payer MEDICAID, SELFPAY ==
--- OUTSIDE RECORDS SUMMARY | 2025-01-01 14:31 | XMS_ITS | Encounter Summary ---
[facility] Address [address] [place] [address] Care Team Providers Care Funeral Pre Need Consultant Name Role Phone Provider, No Known Primary Care Provider Unavail able Reason for Visit * Diagnostic Imaging (Routine) - Authorized Specialty Diagnoses / Procedures Referred By Contmarlen t Referred To Contact Radiology Diagnoses Chronic hypertension during , antepartum Dichorionic diamniotic twin , antepartum Procedures [facility] Taylor, David Pearl MD [address] [place] [address] Phone: tel: fax: [facility] US PER DIAG CTR [address] [place] [address] Phone: tel: Referral ID Status Reason Start Date Expiration Date V isits Requested Visits Authorized [id number] Authorized 10/31/2024 01/30/2026 4 4 Encounter Details Date Type Department Care Team (Latest Contact Info) Description 01/01/2025 2:31 PM EST - 01/01/2025 11:59 PM EST Hospital Encounter [facility] US PER DIAG CTR [address] [place] [address] Kayli Cedeno, [address] [place] [address] [address] [id number] Discharge Disposition: Home or Self Care Social [...] tablet Take 1 tablet by mouth Daily. Banophen 25 MG capsule Take 1 capsule by mouth Every 4 (Four) Hours As Needed for Sleep. 11/16/2024 famotidine (PEPCID) 20 MG tablet Take 1 [...] Take 1 tablet by mouth Daily. 09/05/2024 promethazine (PHENERGAN) 12.5 MG tablet Take 1 tablet by mouth Every 6 (Six) Hours As Needed. SUMAtriptan (IMITREX) 25 MG tablet Take 1 tablet by mouth 1 (One) Time. Please see attached for detailed directions 09/07/2024 Vit-Fe Fumarate-FA ( vitamin 28-0.8) 28-0.8 MG tablet tablet Take 1 tablet by mouth Daily. 02/18/2024 5 documented as of this encounter Plan of Treatment Not on file documented as of this encounter Procedures Procedure Name Priority Date/Time Associated Diagnosis Comments [facility] Routine 01/01/2025 3:27 PM EST Chronic hypertension during , antepartum Dichorionic diamniotic twin , antepartum documented in this encounter Results * [facility] (01/01/2025 3:27 PM EST) Anatomical Region Laterality Modality Ultrasound 01/01/2025 2:55 PM EST Narrative 01/02/2025 7:32 PM EST PAT NAME: ROXANA NIETO MED REC#: [id number] DA: [id number] PAT GEND: F PAT TYPE: O EXAM AWILDA: [id number] REF PHYS KAYLI CEDENO Comparison Studies The [...] EFW (oz) 11 oz EFW by: Hadlock (WKQ-DG-UT-FL) Extended Cav. septi pel. tr 7.1 mm Tax Economist 6.4 mm CM 6.4 mm 42% Nicolaides [...] EFW (oz) 14 oz EFW by: Hadlock (FZZ-ZM-ZG-FL) Extended Cav. septi pel. tr 6.4 mm Tax Economist 6.8 mm CM 8.2 mm 87% Nicolaides [...] Heart / Thorax 3-vessel view: Appears normal 5-olzsnq-xoxztzp view: Appears normal Cord insertion: Appears normal [...] doppler normal x 2 Coding ======= Description: 45864-83 Follow Up Ultrasound Description: 27254-77-09 Follow up Ultrasound additional fetus Dairy Inspector: RT Geoff Hines , [facility] Physician: Radha Burnett MD, FACOG Electronically signed by: Radha Burnett MD, FACOG at: 19:32 Procedure Note Radha Burnett MD - 01/02/2025 PAT NAME: ROXANA NIETO MED REC#: [id number] DA: [id number] PAT GEND: F PAT TYPE: O EXAM AWILDA: [id number] REF PHYS KAYLI CEDENO Comparison Studies The findings of this study are compared to the prior ultrasound studydated 11/28/24 Patient Status Outpatient Indication ======== Di/Di twin . AMA. MO BMI 46. CHTN. Previous c/s x 3. H/Opreeclampsia. H/O abruption. 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 Maternal Assessment Achcmf899 cm Height (ft)5 ft Height (in)9 in Xjpeby250 kg Weight (lb)305 lb BMI45.04 kg/m Method ======= Transabdominal ultrasound examination. View: limited by multiplegestation. Limited by patient body habitus ========= Twin . Dichorionic-diamniotic. Number of fetuses: 2 Dating ====== Method of dating:based on stated BONNIE GA by prior w + 6 d BONNIE by prior [...] Hadlock Femur52.2 mm 27w 6d 34% Hadlock Vgytjof20.4 mm 29w 4d 87% Nyla HC / AC1.09 EFW1,207 g 28w 0d 55% Hadlock EFW discordance7.4 % EFW (lb)2 lb EFW (oz)11 oz EFW by:Hadlock (ENW-VZ-LA-FL) Extended Cav. septi pel. tr7.1 mm Vp6.4 mm CM6.4 mm 42% Nicolaides Head / Face / Neck Cephalic index0.71 <1% Nicolaides Extremities / Bony Struc FL / BPD0.76 FL / HC0.20 FL / AC0.21 Other Structures XRV104 bpm Biometry Standard BPD71.2 mm 28w 4d 63% Hadlock OFD91.8 mm 29w 4d 90% Nyla HC260.5 mm 28w 2d 34% Hadlock Cerebellum tr37.0 mm 30w 3d 99% Hill AC252.7 mm 29w 3d 86% Hadlock Femur53.3 mm 28w 2d 48% Hadlock Booyrzc57.5 mm 30w 0d 94% Nyla HC / AC1.03 EFW1,303 g 28w 4d 77% Hadlock EFW discordance7.4 % EFW (lb)2 lb EFW (oz)14 oz EFW by:Hadlock (QYK-LN-OW-FL) Extended Cav. septi pel. tr6.4 mm Vp6.8 mm CM8.2 mm 87% Nicolaides Head / Face / Neck Cephalic index0.78 36% Nicolaides Extremities / Bony Struc FL / BPD0.75 FL / HC0.20 FL / AC0.21 Other Structures BRM483 bpm General Evaluation Cardiac activity present. FHR [...] normal Heart / Thorax 3-vessel view:Appears normal 7-osgmsf-ltpwvau view:Appears normal Cord insertion:Appears normal Stomach:Appears normal [...] UA doppler normal x 2 Coding ======= Description:76898-96 Follow Up Ultrasound Description:13795-57-15 Follow up Ultrasound additional fetus Dairy Inspector: RT Geoff Hines , [facility] Physician: Radha Burnett MD, FACOG Electronically signed by: Radha Burnett MD, FACOG at: 1119:32 us David Taylor MD IMG US ORDERABLES Final Result documented in this encounter Visit Diagnoses Not on filedocumented in this encounter Care Teams Funeral Pre Need Consultant Relationship Specialty Start Date End Date Provider, No Known [facility] [place] [address] PCP - General 08/10/24 documented as of this encounter
--- OUTSIDE RECORDS SUMMARY | 2025-01-01 15:15 | XMS_ITS | Encounter Summary ---
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 MATERNAL MEDICINE [address] [address] [phone] Radha Burnett MD [address] [place] [address] Dichorionic diamniotic twin , antepartum (Primary Dx); [...] Pt reports +FM x 2. Reports occasional [place] Cunningham contractions. Denies vaginal bleeding, leakingof fluid. * Radha Burnett MD - 01/01/2025 3:15 PM EST Patient seen in Diagnostic Center today for ultrasound. Please see ultrasound report under imaging tab of patient chart in [facility] (Viewpoint report). Radha Burnett MD documented in this encounter Plan of Treatment Not on file documented as of this encounter Visit Diagnoses Diagnosis Dichorionic diamniotic twin , antepartum- Primary Chronic hypertension during , antepartum documented in this encounter Care Teams Data Software Engineer Relationship Specialty Start Date End Date Provider, [place] [address] PCP - General 08/10/24 documented as of this encounter
--- OUTSIDE RECORDS SUMMARY | 2025-01-29 14:43 | XMS_ITS | Encounter Summary ---
[facility] [address] [place] [address] Care Team Providers Care Unit Assistant Name Role Phone Provider, No Known Primary Care Provider Unavail able Reason for Visit * Diagnostic Imaging (Routine) - Authorized Specialty Diagnoses / Procedures Referred By Contmarlen t Referred To Contact Radiology Diagnoses Chronic hypertension during , antepartum Dichorionic diamniotic twin , antepartum Procedures [facility] Taylor, David Pearl MD [address] [place] [address] Phone: tel: fax: [facility] US PER DIAG [facility] [address] [place] [address] Phone: tel: Referral ID Status Reason Start Date Expiration Date V isits Requested Visits Authorized [id number] Authorized 10/31/2024 01/30/2026 4 4 Encounter Details Date Type Department Care Team (Latest Contact Info) Description 01/29/2025 2:43 PM EST - 01/29/2025 11:59 PM EST Hospital Encounter [facility] US PER DIAG [facility] [address] [place] [address] Kayli Cedeno, [address] [place] [address] [address] [id number] Discharge Disposition: Home or Self Care Social [...] Procedure Name Priority Date/Time Associated Diagnosis Comments [facility] Routine 01/29/2025 3:54 PM EST Chronic hypertension during , antepartum Dichorionic diamniotic twin , antepartum documented in this encounter Results * [facility] (01/29/2025 3:54 PM EST) Anatomical Region Laterality Modality Ultrasound 01/29/2025 3:02 PM EST Narrative 01/29/2025 4:01 PM EST PAT NAME: ROXANA NIETO MED REC#: [id number] DA: [id number] PAT GEND: F PAT TYPE: O EXAM AWILDA: [id number] REF PHYS KAYLI CEDENO Comparison Studies The findings of this study are compared to the prior ultrasound study dated Patient Status Outpatient Indication ======== Di/Di twin . AMA. MO BMI 44. CHTN. Previous c/s x 3. H/O preeclampsia. H/O abruption. 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 Maternal Assessment Height 175 cm Height (ft) 5 ft Height (in) 9 in Weight 136 kg Weight (lb) 300 lb BMI 44.30 kg/m Method ======= Transabdominal ultrasound examination. View: limited by multiple gestation ========= Twin . Dichorionic-diamniotic. Number of fetuses: 2 Dating ====== Method of dating: based on stated BONNIE GA by prior assessment 31 w + 6 d BONNIE by prior assessment: 03/27/2025 Ultrasound examination on: 01/29/2025 GA by U/S based upon: AC, BPD, Femur, HC GA by U/S 32 w + 2 d BONNIE by U/S: 03/24/2025 GA by U/S based upon (Fetus 2): AC, BPD, Femur, HC GA by U/S (Fetus 2) 33 w + 0 d BONNIE by U/S (Fetus 2): 03/19/2025 Previous dating: based on stated BONNIE, selected on 01/01/2025 Agreed BONNIE of previous datin03/27/2025 Assigned: based on stated BONNIE, selected on 01/29/2025 Assigned GA 31 w + 6 d Assigned BONNIE: 03/27/2025 length 280 d Biometry Standard BPD 77.0 mm 30w 6d 15% Hadlock OFD 107.0 mm 35w 2d 98% Nyla HC 295.7 mm 32w 5d 34% Hadlock Cerebellum tr 38.1 mm 31w 1d 14% Hill AC 301.0 mm 34w 0d 95% Hadlock Femur 61.0 mm 31w 5d 32% Hadlock Humerus 53.8 mm 31w 2d 35% Nyla HC / AC 0.98 EFW 2,085 g 32w 4d 74% Hadlock EFW discordance 0.3 % EFW (lb) 4 lb EFW (oz) 10 oz EFW by: Hadlock (NSY-FN-YI-FL) Extended Cav. septi pel. tr 7.9 mm Supervisor Varnish 6.4 mm CM 6.3 mm 23% Nicolaides Nasal bone 10.6 mm Head / Face / Neck Cephalic index 0.72 1% Nicolaides Extremities / Bony Struc FL / BPD 0.79 FL / HC 0.21 FL / AC 0.20 Other Structures FHR 135 bpm Biometry Standard BPD 79.4 mm 31w 6d 41% Hadlock OFD 105.2 mm 34w 4d 94% Nyla HC 303.8 mm 33w 5d 66% Hadlock AC 287.3 mm 32w 5d 74% Hadlock Femur 64.8 mm 33w 3d 79% Hadlock Humerus 55.4 mm 32w 2d 61% Nyla HC / AC 1.06 EFW 2,090 g 32w 5d 74% Hadlock EFW discordance 0.3 % EFW (lb) 4 lb EFW (oz) 10 oz EFW by: Hadlock ([id number]-ZW-DV-FL) Extended Nasal bone 10.8 mm Head / Face / Neck Cephalic index 0.75 11% Nicolaides Extremities / Bony Struc FL / BPD 0.82 FL / HC 0.21 FL / AC 0.23 Other Structures FHR 145 bpm General Evaluation Cardiac activity present. FHR 135 bpm. movements present. Presentation breech. Placenta Placental site: anterior. Amniotic fluid Amount of AF: normal, normal. MVP 5.3 cm. Q1 5.3 cm. General Evaluation Cardiac activity present. FHR 145 bpm. movements present. Presentation oblique superior. Placenta Placental site: anterior. Amniotic fluid Amount of AF: normal. MVP 4.9 cm. Anatomy Cranium: Normal Cavum septi pellucidi: Normal Cerebellum: Appears normal Cisterna magna: Appears normal Head / Neck Rt lateral ventricle: Appears normal Lt lateral ventricle: Appears normal Lips: Normal Profile: Normal Nose: Normal 4-chamber view: Appears normal RVOT view: Normal LVOT view: Normal Heart / Thorax 3-vessel view: Normal 0-nidhhq-geizajs view: normal Cord insertion: Normal Stomach: Appears normal Kidneys: Appears normal Bladder: Appears normal Gender: male Wants to know gender: yes Anatomy Cranium: Normal Cavum septi pellucidi: documented previously Cerebellum: documented previously Cisterna magna: documented previously Head / Neck Rt lateral ventricle: documented previously Lt lateral ventricle: documented previously Lips: Normal Profile: Normal Nose: Normal 4-chamber view: Appears normal RVOT view: Appears normal LVOT view: documented previously Heart / Thorax 3-vessel view: Appears normal 5-aggomb-gckkbgr view: Appears normal Cord insertion: Appears normal Stomach: Appears normal Kidneys: Appears normal Bladder: Appears normal Gender: male Wants to know gender: yes Doppler Arterial Umbilical A PI 0.79 22% Luly Umbilical A RI 0.56 22% Luly Umbilical A PS 32.88 cm/s 2% Ebbing Umbilical A ED 14.56 cm/s Umbilical A TAmax 23.19 cm/s 6% Ebbing Umbilical A MD 14.48 cm/s Umbilical A S / D 2.25 20% Luly Umbilical A HR 160 bpm Doppler Arterial Umbilical A PI 0.81 26% Luly Umbilical A RI 0.57 26% Luly Umbilical A PS 37.14 cm/s 7% Ebbing Umbilical A ED 16.17 cm/s Umbilical A TAmax 26.50 cm/s 18% Ebbing Umbilical A MD 15.57 cm/s Umbilical A S / D 2.33 24% Luly Umbilical A HR 152 bpm Biophysical Profile 2: breathing movements 2: Gross body movements 2: tone 2: Amniotic fluid volume 8/8 Biophysical profile score Biophysical Profile 2: breathing movements 2: Gross body movements 2: tone 2: Amniotic fluid volume 8/8 Biophysical profile score Consultation / Office Visit Office note to follow Impression Dichorionic diamniotic twin gestation Appropriate and concordant growth Normal fluid, BPP, UA doppler for each twin Recommendation Delivery planned at 37 weeks GA Continue twice weekly testing Follow up PRN Coding ======= Description: Follow Up Ultrasound Description: BPP without NST Description: Follow up Ultrasound additional fetus Description: BPP without NST additional fetus [facility] Owner: Jennifer Collazo RDMS Physician: Radha Burnett MD, FACOG Electronically signed by: Radha Burnett MD, FACOG at: 16:01 Procedure Note Radha Burnett MD - 01/29/2025 PAT NAME: ROXANA NIETO [facility] REC#: [id number] DA: [id number] PAT GEND: F PAT TYPE: O EXAM AWILDA: [id number] REF PHYS KAYLI CEDENO Comparison Studies The findings of this study are compared to the prior ultrasound studydated Patient Status Outpatient Indication ======== Di/Di twin . AMA. MO BMI 44. CHTN. Previous c/s x 3. H/Opreeclampsia. H/O abruption. 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 Maternal Assessment Kuqlfy429 cm Height (ft)5 ft Height (in)9 in Yfqdmk411 kg Weight (lb)300 lb BMI44.30 kg/m Method ======= Transabdominal ultrasound examination. View: limited by multiplegestation ========= Twin . Dichorionic-diamniotic. Number of fetuses: 2 Dating ====== Method of dating:based on stated BONNIE GA by prior [id number] w + 6 d BONNIE by prior assessment:03/27/2025 Ultrasound examination on:01/29/2025 GA by U/S based upon:AC, BPD, Femur, HC GA by U/S32 w + 2 d BONNIE by U/S:03/24/2025 GA by U/S based upon (Fetus 2):AC, BPD, Femur, HC GA by U/S (Fetus 2)33 w + 0 d BONNIE by U/S (Fetus 2):03/19/2025 Previous dating:based on stated BONNIE, selected on 01/01/2025 Agreed BONNIE of previous datin03/27/2025 Assigned:based on stated BONNIE, selected on 01/29/2025 Assigned GA31 w + 6 d Assigned BONNIE:03/27/2025 tenaij470 d Biometry Standard BPD77.0 mm 30w 6d 15% Hadlock CQD714.0 mm 35w 2d 98% Nyla HC295.7 mm 32w 5d 34% Hadlock Cerebellum tr38.1 mm 31w 1d 14% Hill AC301.0 mm 34w 0d 95% Hadlock Femur61.0 mm 31w 5d 32% Hadlock Dmkorwj14.8 mm 31w 2d 35% Nyla HC / AC0.98 EFW2,085 g 32w 4d 74% Hadlock EFW discordance0.3 % EFW (lb)4 lb EFW (oz)10 oz EFW by:Hadlock (BAU-UI-YE-FL) Extended Cav. septi pel. tr7.9 mm Vp6.4 mm CM6.3 mm 23% Nicolaides Nasal bone10.6 mm Head / Face / Neck Cephalic index0.72 1% Nicolaides Extremities / Bony Struc FL / BPD0.79 FL / HC0.21 FL / AC0.20 Other Structures UTL161 bpm Biometry Standard BPD79.4 mm 31w 6d 41% Hadlock HET679.2 mm 34w 4d 94% Nyla HC303.8 mm 33w 5d 66% Hadlock AC287.3 mm 32w 5d 74% Hadlock Femur64.8 mm 33w 3d 79% Hadlock Dhfdlup51.4 mm 32w 2d 61% Nyla HC / AC1.06 EFW2,090 g 32w 5d 74% Hadlock EFW discordance0.3 % EFW (lb)4 lb EFW (oz)10 oz EFW by:Hadlock (HCZ-IE-YF-FL) Extended Nasal bone10.8 mm Head / Face / Neck Cephalic index0.75 11% Nicolaides Extremities / Bony Struc FL / BPD0.82 FL / HC0.21 FL / AC0.23 Other Structures KVZ728 bpm General Evaluation Cardiac activity present. FHR 135 bpm. movements present. Presentation breech. Placenta Placental site: anterior. Amniotic fluid Amount of AF: normal, normal. MVP 5.3 cm. Q1 5.3 cm. General Evaluation Cardiac activity present. FHR 145 bpm. movements present. Presentation oblique superior. Placenta Placental site: anterior. Amniotic fluid Amount of AF: normal. MVP 4.9 cm. Anatomy Cranium:Normal Cavum septi pellucidi:Normal Cerebellum:Appears normal Cisterna magna:Appears normal Head / Neck Rt lateral ventricle:Appears normal Lt lateral ventricle:Appears normal Lips:Normal Profile:Normal Nose:Normal 4-chamber view:Appears normal RVOT view:Normal LVOT view:Normal Heart / Thorax 3-vessel view:Normal 9-jsjqcc-rtqgodi view:normal Cord insertion:Normal Stomach:Appears normal Kidneys:Appears normal Bladder:Appears normal Gender:male Wants to know gender:yes Anatomy Cranium:Normal Cavum septi pellucidi:documented previously Cerebellum:documented previously Cisterna magna:documented previously Head / Neck Rt lateral ventricle:documented previously Lt lateral ventricle:documented previously Lips:Normal Profile:Normal Nose:Normal 4-chamber view:Appears normal RVOT view:Appears normal LVOT view:documented previously Heart / Thorax 3-vessel view:Appears normal 2-wbyavq-pbuvkem view:Appears normal Cord insertion:Appears normal Stomach:Appears normal Kidneys:Appears normal Bladder:Appears normal Gender:male Wants to know gender:yes Doppler Arterial Umbilical A PI0.79 22% Luly Umbilical A RI0.56 22% Luly Umbilical A PS32.88 cm/s 2% Ebbing Umbilical A ED14.56 cm/s Umbilical A TAmax23.19 cm/s 6% Ebbing Umbilical A MD14.48 cm/s Umbilical A S / D2.25 20% Luly Umbilical A HR160 bpm Doppler Arterial Umbilical A PI0.81 26% Luly Umbilical A RI0.57 26% Luly Umbilical A PS37.14 cm/s 7% Ebbing Umbilical A ED16.17 cm/s Umbilical A TAmax26.50 cm/s 18% Ebbing Umbilical A MD15.57 cm/s Umbilical A S / D2.33 24% Luly Umbilical A HR152 bpm Biophysical Profile 2: breathing movements 2: Gross body movements 2: tone 2: Amniotic fluid volume 8/8 Biophysical profile score Biophysical Profile 2: breathing movements 2: Gross body movements 2: tone 2: Amniotic fluid volume 8/8 Biophysical profile score Consultation / Office Visit Office note to follow Impression Dichorionic diamniotic twin gestation Appropriate and concordant growth Normal fluid, BPP, UA doppler for each twin Recommendation Delivery planned at 37 weeks GA Continue twice weekly testing Follow up PRN Coding ======= Description: Follow Up Ultrasound Description: BPP without NST Description: Follow up Ultrasound additional fetus Description: BPP without NST additional fetus [facility] Owner: Jennifer Collazo RDMS Physician: Radha Burnett MD, FACOG Electronically signed by: Radha Burnett MD, FACOG at: 16:01 us David Taylor MD IMG US ORDERABLES Final Result documented in this encounter Visit Diagnoses Not on filedocumented in this encounter Care Teams Unit Assistant Relationship Specialty Start Date End Date Provider, [place] [address] PCP - General 08/10/24 documented as of this encounter
--- OUTSIDE RECORDS SUMMARY | 2025-01-29 15:15 | XMS_ITS | Encounter Summary ---
Author Organization [facility] Address [address] [place] [address] Care Team Providers Care Contracting Officer Name Role Phone Provider, No Known Primary Care Provider Unavail able Reason for Visit * Reason Comments AMA, di/di twins, MO, CHTN, HX C/S x3 Encounter Details Date Type Department Care Team (Late st Contact Info) Description 01/29/2025 3:15 PM EST Office Visit [facility] MATERNAL MEDICINE [address] [facility] [address] [place], [place] [phone] Radha Burnett MD [address] [place] [address] Chronic hypertension during , antepartum (Primary Dx); [...] CVS. Radha Burnett MD FACOG Maternal Medicine, [facility] 01/29/2025 documented in this encounter Plan of Treatment Not on file documented as of this encounter Visit Diagnoses Diagnosis Chronic hypertension during , antepartum- Primary Dichorionic diamniotic twin , antepartum Antepartum multigravida of advanced maternal age documented in this encounter Care Teams Contracting Officer Relationship Specialty Start Date End Date Provider, [place] [address] PCP - General 08/10/24 documented as of this encounter
--- NOTE | 2025-02-19 15:45 | US_ITS ---
PROCEDURE: US OB BIOPHYSICAL PROFILE CLINICAL INDICATION: BPP COMPARISON: US US OB <= 14 WEEKS FETUS from 09/05/2024 US US OB BIOPHYSICAL PROFILE from 01/23/2025 US US OB BIOPHYSICAL PROFILE from 02/01/2025 US US OB BIOPHYSICAL PROFILE from 02/05/2025 US US OB BIOPHYSICAL PROFILE from 02/08/2025 FINDINGS: Transabdominal sonographic images of the uterus were obtained. From her established due date she is 35weeks 0 days. The following parameters are obtained: Measurements: TWIN A Viable Fetus in the BREECH presentation with and anterior placenta grade 2. heart Rate = 132bpm Amniotic fluid: MVP 7.34 cm Qualitative AFV:2 Breathing movements: 2 Gross Body Movements: 2 Tone: 2 Biophysical profile score: 8 No obvious anomalies evident.Kidneys, profile, stomach, bladder, four-chamber heart, three-vessel cord appear normal. Measurements: TWIN B Viable Fetus in the cephalic presentation with and anterior placenta grade 2. heart Rate = 132bpm Amniotic fluid: MVP 4.87 cm Qualitative AFV:2 Breathing movements: 2 Gross Body Movements: 2 Tone: 2 Biophysical profile score: 8 No obvious anomalies evident.Kidneys, profile, stomach, bladder, four-chamber heart, three-vessel cord appear normal. IMPRESSION: 1. Viable twin breech/cephalic. 2. The placenta appears fused and anterior. There are 2 separate amniotic sacs. 3. The fluid is within normal limits for both twins. 4. Biophysical profile is 8/8 for both twins. There is good breathing movement and movement seen in both. 5. Limited anatomical scans appear normal. Dictated by: Jason Erickson MD 02/20/2025 11:38 Jason Erickson MD in OV 02/20/2025 11:38
--- OUTSIDE RECORDS SUMMARY | 2025-02-19 16:00 | XMS_ITS | Encounter Summary ---
Author Organization [facility] Address [address] [place] [address] Care Team Providers Care Director Of Recruitment And Admissions Name Role Phone Provider, No Known Primary [...] on filedocumented in this encounter Care Teams Director Of Recruitment And Admissions Relationship Specialty Start Date End Date Provider, No Known [facility] [place] [address] PCP - General 08/10/24 documented as of this encounter
--- OUTSIDE RECORDS SUMMARY | 2025-02-19 16:00 | XMS_ITS | Clinical Summary ---
Author Organization [facility] Address [address] [place] [address] Care Team Providers Care Appliance Adjuster Name Role Phone Pcp, No Primary Care [...] testing 4 Active Lancets (OneTouch Delica Plus Rgeijj21X) [facility] USE TO TEST 4 TIMES [...] or split. 60 tablet 1 4 Active cyclobenzaprin e (Flexeril) 5 MG tablet [...] by mouth every 6 (six) hours. Under [place] law, monthly prescriptions (30 days) can be [...] TIMES A DAY 60 tablet 11 5 026 Active Vit-Fe Fumarate-FA ( Vitamins) 28-0.8 MG tablet Take 1 tablet by mouth 1 (one) time each day. 30 tablet 3 4 025 Active Problems Problem Noted Date [...] How often do you attend chur or moravian services? More than 4 times per year 08/16/2023 Do you belong to any clubs o r organizations such as denominational groups, unions, fraternal or athletic groups, or [...] Recorded Patient Health Questionnaire-2 Score 0 02/03/2024 [facility] [place] of Occupat ional Health - Occupational Stress [...] place to sleep or slept in a residential (including now)? No 08/16/2023 [place] Depression Scale Answer Date Recorded [place] Depression Scale Total 6 12/07/2022 The thought [...] any time in the past 12 m [facility], were you homeless or living in a residential (including now)? No 02/24/2024 Utilities Answer Date [...] of 2 - PCV) 2004 [facility]-HPV/Cotest 11/23/2015 [facility]-RGMBT-16 Vaccine (1 - 2024- season) 2024 [facility]-Influenza [...] ORDERABLES Final Resu lt Performing Organization Address City/[facility] Co de Phone Number [facility] [address] [place] [address] * (ABNORMAL) Hepatitis C Antibody (07/23/2023 8:37 AM EDT) Hepatitis C Antibody Positive( A) Negative 07/23/2023 2:24 PM EDT [facility] Comment:This specimen is sarah ng sent for confirmation by RT-PCR. Blood Venous blood specimen / Unknown Venipuncture / Unknown 07/23/2023 8:37 AM EDT 07/23/2023 12:38 PM EDT Result Hoda Rojas MD LAB BLOOD ORDERABLES Final Resu lt Performing Organization Address City/[facility] Co de Phone Number [facility] [address] [place] [address] from Last 3 Months or Most Recently Relevant to Health Maintenance Additional Health Concerns Active Problems Noted Date Diagnosed Date CPM S22 PP LABOR (OBSTETRICS) 08/16/2023 Insurance Advance Directives * Full Code (Latest Code Status on File) Date Activated Date Inactivated Comments 02/15/2024 3:52 PM 02/18/2024 5:18 PM Question Answer Comments Patient has decision-making capacity? Yes Care Teams Appliance Adjuster Relationship Specialty Start Date End Date Pcp, No [address] [place] [address] PCP - General Family Medicine 09/21/23
--- OUTSIDE RECORDS SUMMARY | 2025-02-19 16:00 | XMS_ITS | Clinical Summary ---
Author Organization [facility] Address [address] [place] [address] Care Team Providers Care Emanations Analysis Technician Name Role Phone Provider, No Known [...] 1 tablet by mouth Daily. 5 Active promethazine (PHENERGAN) 12.5 MG tablet Take [...] 4 (Four) Hours As Needed for Sleep. 5 Active Vit-Fe Fumarate-FA ( vitamin 28-0.8) 28-0.8 MG tablet tablet Take 1 tablet by mouth Daily. 4 02/18/20 25 Active Problems Problem Noted Date Diagnosed Date [...] older obese women and in women of -Botswanan descent. Preexisting hypertension is a recognized risk [...] 01/29/2025 3:15 PM EST Office Visit [facility] [address] [phone] Radha Burnett MD Chronic hypertension during , antepartum (Primary Dx); Dichorionic diamniotic twin , antepartum; Antepartum multigravida of advanced maternal age 1201/29/2025 2:43 PM EST - 01/29/2025 11:59 PM EST Hospital Encounter [facility] [address] [place] [phone] Kayli Cedeno, Discharge Disposition: Home or Self Care 01/29/2025 Travel 01/01/2025 3:15 PM EST Office Visit [facility] [address] [phone] Radha Burnett MD Dichorionic diamniotic twin , antepartum (Primary Dx); Chronic hypertension during , antepartum 01/01/2025 2:31 PM EST - 01/01/2025 11:59 PM EST Hospital Encounter [facility] [address] [place] [phone] Kayli Cedeno, Discharge Disposition: Home or Self Care 01/01/2025 Travel 11/28/2024 2:15 PM EDT Office Visit [facility] [address] [phone] Wayne Daniels MD Dichorionic diamniotic twin , antepartum (Primary Dx); Morbid obesity with BMI of 45.0-49.9, adult; Chronic hypertension during , antepartum; Family history of congenital anomaly; 23 weeks gestation of ; Antepartum multigravida of advanced maternal age 1011/28/2024 2:12 PM EDT - 11/28/2024 11:59 PM EDT Hospital Encounter [facility] [address] [place] [address] Kayli Cedeno, Discharge Disposition: Home or Self Care 11/28/2024 [...] antepartum from Last 3 Months Results * [facility] (01/29/2025 3:54 PM EST) Only the most recent of3 resultswithin the time period is included. Anatomical Region Laterality Modality Ultrasound 01/29/2025 3:02 PM EST Narrative 01/29/2025 4:01 PM EST PAT NAME: ROXANA NIETO [facility] REC#: [id number] DA: [id number] PAT GEND: F PAT TYPE: O EXAM AWILDA: [id number] REF PHYS KAYLI CEDENO Comparison Studies The [...] EFW (oz) 10 oz EFW by: Hadlock (KQE-NI-YH-FL) Extended Cav. septi pel. tr 7.9 mm Network Operations Project Manager 6.4 mm CM 6.3 mm 23% [...] EFW (oz) 10 oz EFW by: Hadlock (NTT-TJ-GL-FL) Extended Nasal bone 10.8 mm Head / [...] Normal Heart / Thorax 3-vessel view: Normal 3-dxuvdh-qepzbjo view: normal Cord insertion: Normal Stomach: Appears [...] Heart / Thorax 3-vessel view: Appears normal 1-zqavag-jucqyqc view: Appears normal Cord insertion: Appears normal [...] fetus Description: BPP without NST additional fetus Milanese Knitting Machine Operator: Jennifer Collazo RDMS Physician: Radha Burnett MD, FACOG Electronically signed by: Radha Burnett MD, FACOG at: 16:01 Procedure Note Radha Burnett MD - 01/29/2025 PAT NAME: ROXANA NIETO [facility] REC#: [id number] DA: [id number] PAT GEND: F PAT TYPE: O EXAM AWILDA: [id number] REF PHYS KAYLI CEDENO Comparison Studies The findings of this study are compared to the prior ultrasound studydated Patient Status Outpatient Indication ======== Di/Di twin . AMA. MO BMI 44. CHTN. Previous c/s x 3. H/Opreeclampsia. H/O abruption. 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 Maternal Assessment Ymtjen328 cm Height (ft)5 ft Height (in)9 in Ffgeuc923 kg Weight (lb)300 lb BMI44.30 kg/m Method ======= Transabdominal ultrasound examination. View: limited by multiplegestation ========= Twin . Dichorionic-diamniotic. Number of fetuses: 2 Dating ====== Method of dating:based on stated BONNIE GA by prior [id number] w + 6 d BONNIE by prior [...] GA31 w + 6 d Assigned BONNIE:[birth year]25 owdhqr275 d Biometry Standard BPD77.0 mm 30w 6d 15% Hadlock WDJ926.0 mm 35w 2d 98% Nyla HC295.7 mm 32w 5d 34% Hadlock Cerebellum tr38.1 mm 31w 1d 14% Hill AC301.0 mm 34w 0d 95% Hadlock Femur61.0 mm 31w 5d 32% Hadlock Tonzjmu13.8 mm 31w 2d 35% Nyla HC / AC0.98 EFW2,085 g 32w 4d 74% Hadlock EFW discordance0.3 % EFW (lb)4 lb EFW (oz)10 oz EFW by:Hadlock (BZX-DF-EJ-FL) Extended Cav. septi pel. tr7.9 mm Vp6.4 mm CM6.3 mm 23% Nicolaides Nasal bone10.6 mm Head / Face / Neck Cephalic index0.72 1% Nicolaides Extremities / Bony Struc FL / BPD0.79 FL / HC0.21 FL / AC0.20 Other Structures WMO090 bpm Biometry Standard BPD79.4 mm 31w 6d 41% Hadlock KBP861.2 mm 34w 4d 94% Nyla HC303.8 mm 33w 5d 66% Hadlock AC287.3 mm 32w 5d 74% Hadlock Femur64.8 mm 33w 3d 79% Hadlock Fumbzwb99.4 mm 32w 2d 61% Nyla HC / AC1.06 EFW2,090 g 32w 5d 74% Hadlock EFW discordance0.3 % EFW (lb)4 lb EFW (oz)10 oz EFW by:Hadlock (YXV-UZ-HE-FL) Extended Nasal bone10.8 mm Head / Face / Neck Cephalic index0.75 11% Nicolaides Extremities / Bony Struc FL / BPD0.82 FL / HC0.21 FL / AC0.23 Other Structures UKG237 bpm General Evaluation Cardiac activity present. FHR [...] LVOT view:Normal Heart / Thorax 3-vessel view:Normal 0-itfuwb-humnnmw view:normal Cord insertion:Normal Stomach:Appears normal Kidneys:Appears normal Bladder:Appears normal Gender:male Wants to know gender:yes Anatomy Cranium:Normal Cavum septi pellucidi:documented previously Cerebellum:documented previously Cisterna magna:documented previously Head / Neck Rt lateral ventricle:documented previously Lt lateral ventricle:documented previously Lips:Normal Profile:Normal Nose:Normal 4-chamber view:Appears normal RVOT view:Appears normal LVOT view:documented previously Heart / Thorax 3-vessel view:Appears normal 7-mozjhq-bipwtxp view:Appears normal Cord insertion:Appears normal Stomach:Appears normal [...] fetus Description: BPP without NST additional fetus Milanese Knitting Machine Operator: Jennifer Collazo RDMI Physician: Radha Burnett MD, FACOG Electronically signed by: Radha Burnett MD, FACOG at: 0816:01 us David Taylor MD IM US ORDERABLES Final Result from Last 3 Months Insurance [employer] [place]ICAID [place] Care Teams Emanations Analysis Technician Relationship Specialty Start Date End Date Provider, No Known [facility] [place] [address] PCP - General 08/10/24
--- OUTSIDE RECORDS SUMMARY | 2025-02-19 16:00 | XMS_ITS | Encounter Summary ---
Author Organization [facility] Address [address] [place] [address] Care Team Providers Care Document Preparation Specialist Name Role Phone Provider, No Known [...] on filedocumented in this encounter Care Teams Document Preparation Specialist Relationship Specialty Start Date End Date Provider, No Known [facility] [place] [address] PCP - General 08/10/24 documented as of this encounter
== END 2025-02-19 23:59 | disposition home or self-care (01) ==
LOC: RAD 15:58
PROVIDERS: Visit Provider Obstetrics & Gynecology
DX: O32.1XX1 Maternal care for breech presentation, fetus 1 (principal); O30.043 Twin pregnancy, dichorionic/diamniotic, third trimester; O99.213 Obesity complicating pregnancy, third trimester; O09.523 Supervision of elderly multigravida, third trimester; O09.293 Supervision of pregnancy with other poor reproductive or obstetric history, third trimester; E66.09 Other obesity due to excess calories; Z86.32 Personal history of gestational diabetes; Z3A.35 35 weeks gestation of pregnancy
CPT/HCPCS: 76819